=== PATIENT | female | born 1950 | race Caucasian/White ===

== ENCOUNTER 2019-05-11 00:23 | Emergency (ER) | payer MEDICARE, SELFPAY ==
--- NOTE | 2019-05-11 00:29 | XR_ITS ---
WS: [id number] XR chest 1V portable [id number] REASON FOR EXAM: cough FINDINGS: The heart and mediastinal interfaces were normal. Arteriosclerotic changes in the arch of t he aorta. The lung bowles are well aerated. No pneumonia, pleural effusion, pulmonary edema, or mass effect. The hilum and apices are normal. No osseous abnormalities. XR/XR chest 1V portable [id number] IMPRESSION: Arteriosclerotic changes.
[2019-05-11 00:37] VITALS: BP 152/77; PULSE 71; RESP 24; TEMP 37.1; O2SAT 93; BMI 34.3
--- NOTE | 2019-05-11 01:05 | ED_ITS ---
HPI - URI/Sore Throat General: Chief Complaint: Upper Respiratory Infection Stated Complaint: cough Time Seen by Provider: 05/11/19 00:52 Source: patient Mode of arrival: ambulatory Limitations: no limitations History of Present Illness: HPI Narrative: Patient is a 69-year-old female who presents to ED today with complaints of a cough x2 days. Patient states she is not having any chest pain, shortness of breath, difficulty breathing. She is not running fevers or chills. No hemoptysis. Patient states she does have a history of bronchitis. She has no history of asthma, COPD, emphysema. She does states she has a rescue albuterol inhaler at home she has been using as needed. MD elicited complaint: cough Able to tolerate fluids by mouth: Yes Exacerbating factors: nothing Relieving factors: nothing Associated symptoms: Reports no associated symptoms; Deny abdominal pain, chills, chest pain, ear or mastoid pain, fever(s), headache(s), nasal congestion, nausea, sinus pain or vomiting Review of Systems Const: Denies: fever, chills, body aches or fatigue Eyes: Denies: change in vision, blurry vision, photophobia, eye discomfort or eye discharge ENMT: Denies: throat pain, enlarged tonsils, painful swallowing, swelling of lips/tongue, oral sores/lesions, ear pain, ear discharge, nasal discharge, nasal congestion, post nasal drip or facial/sinus pain Card: Denies: chest pain, palpitations, irregular heart rhythm, edema, lightheadedness, syncope or pre-syncope Resp: Reports: productive cough and chest congestion; Denies: shortness of breath, non-productive cough, wheezing or coughing up blood GI: Denies: abdominal pain, nausea or vomiting Musc: Denies: neck pain or back pain Skin/Breast: Denies: rash Neuro: Denies: headache All/Imm: Denies: facial swelling or seasonal allergies PFSH ED PFSH: Social History Smoking and tobacco status: current every day smoker Physical Exam Const: COMMON NORMALS: no apparent distress, average body habitus, oriented x3, no limitations, healthy appearing, alert and well nourished HENMT: COMMON NORMALS: normocephalic, head/scalp atraumatic, hearing grossly normal bilaterally, external ears normal, EAC's normal, TM's normal bilaterally, external nose normal, nasal mucous membranes and turbinates normal, moist oral mucous membranes and oropharynx normal HEAD & SCALP: normocephalic and atraumatic FACE & SINUS: normal facial exam and sinuses nontender NOSE: external nose normal and nasal mucous membranes and turbinates normal EXTERNAL EAR: Yes external ears normal EXTERNAL AUDITORY CANAL: EAC's normal TYMPANIC MEMBRANE: TM's normal bilaterally THROAT: posterior oropharynx normal, tonsils normal and uvula midline Eye: COMMON NORMALS: PERRL, EOMs intact bilaterally and conjunctivae normal CONJUNCTIVA: Yes conjunctivae normal PUPIL: Yes PERRL Neck/C-Spine: COMMON NORMALS: no lymphadenopathy Resp: COMMON NORMALS: normal respiratory effort and clear to auscultation bilaterally AUSCULTATION: clear to auscultation bilaterally Cardio: COMMON NORMALS: regular rate and regular rhythm RATE: regular rate RHYTHM: regular rhythm Neuro: COMMON NORMALS: oriented x3 SENSORIUM/ORIENTATION: Yes alert Course Vital Signs: Vital signs: Vital Signs Temperature 98.7 F 05/11/19 00:37 Pulse Rate 71 05/11/19 00:37 Respiratory Rate 24 H 05/11/19 00:37 Blood Pressure 152/77 05/11/19 00:37 Pulse Oximetry 93 05/11/19 00:37 MDM - URI/Sore Throat MDM Narrative: Medical decision making narrative: Patient clinically appears well. Vitals are stable. CXR with no acute changes. Influenza is negative. I do not feel lab work is going to change overall my management. Patient clinically has bronchitis. Spoke to her about how the vast majority of these infections are viral and antibiotics are not indicated. She may continue the albuterol inhaler as needed and I will add steroids and a cough medication that she may use. Recommend follow-up with her primary care in 3 to 5 days if symptoms persist. Lab Data: Labs: Lab Results 05/11/19 Range/Units 01:18 Influenza Type A A g Negative (Negative) POC Influenza B Ag Negative (Negative) Imaging Data^: CXR: My impression: NAD Discharge Plan Discharge Patient Disposition: Home, Self-Care Clinical Impression: Bronchitis Condition: Stable Prescriptions: New promethazine-codeine 6.25-10 mg/5 mL syrup 5 ml PO Q6H PRN (Reason: cough) Qty: 473 RF: 0 Medrol (Denilson) 4 mg tablets,dose pack See Rx Instructions .ROUTE .COMPLEX Qty: 21 RF: 0 Discharge Orders: Discharge Order (Routine); Ordered 05/11/19 Ordered By: Radha Polo Referrals: Russell Elizabeth MD [Primary Care Provider] - Coding Level of Care Code ED Environmental Attorney for [facility] Bob
[2019-05-11 01:49] LABS: Influenza A by IFA Negative (Negative); Influenza B by IFA Negative (Negative)
[2019-05-11] MEDS: promethazine-cod syrup 6.25-10mg/5 mL UDC PO (02:02)
[2019-05-11 02:21] VITALS: BP 131/73; PULSE 57; RESP 20; O2SAT 96
== END 2019-05-11 02:23 | disposition home or self-care (01) ==
PROVIDERS: Emergency Medicine; Emergency Provider Physician Assistant; Family Provider Family Medicine; PCP Family Medicine
DX: J40 Bronchitis, not specified as acute or chronic (principal); F17.200 Nicotine dependence, unspecified, uncomplicated
CPT/HCPCS: 71045; 87804; 99282; 99283

== ENCOUNTER 2019-10-31 10:00 | Outpatient (CLI) | payer MEDICARE, SELFPAY ==
--- NOTE | 2019-10-31 | MM_ITS ---
NOTE: Report was unsigned for reason: Order was edited. Original Signature date and time was: 10/31/191704 ADDENDUM WS: [id number] LEFT DIGITAL DIAGNOSTIC MAMMOGRAM MAMMOGRAPHY WITH CAD CLINICAL INFORMATION: HX OF BREAST CA (RT MAST) COMPARISON: TECHNIQUE: Left CC, MLO, and ML views. FINDINGS: History of right mastectomy. Scattered fibroglandular densities. Lucent centered and clustered calcifications are stable. No suspicious focal mass, asymmetry, calcifications, or architectural distortion. No evidence of malignancy. Addendum Dictated By: Ajay Walker MD Addendum Signed By: Ajay Walker MD Signed Date/Time: 11/01/191712 Addendum Cosigned By: ADDENDUM MM/[id number] IMPRESSION: BI-RADS: 2-Benign FOLLOW UP: 1 Year Follow-up Recommend return to annual diagnostic mammography. Addendum Dictated By: Ajay Walker MD Addendum Signed By: Ajay Walker MD Signed Date/Time: 11/01/191715 Addendum Cosigned By: WS: [id number] BILATERAL DIGITAL DIAGNOSTIC MAMMOGRAM MAMMOGRAPHY WITH CAD CLINICAL INFORMATION: HX OF BREAST CA (RT MAST) COMPARISON: TECHNIQUE: Bilateral CC, MLO, and ML views. FINDINGS: History of right mastectomy. Scattered fibroglandular densities bilaterally. Lucent centered and clustered calcifications are stable. No suspicious focal mass, asymmetry, calcifications, or architectural distortion. No evidence of malignancy. MM/[place] [id number] IMPRESSION: BI-RADS: 2-Benign FOLLOW UP: 1 Year Follow-up Recommend return to annual diagnostic mammography. Dictated By: Ajay Walker MD Signed By: Ajay Walker MD Signed Date/Time: 10/31/191704 DD/ 01 MTDD MM/[place] [id number] IMPRESSION: BI-RADS: 2-Benign FOLLOW UP: 1 Year Follow-up Recommend return to annual diagnostic mammography. ADDENDUM: 11/01/19 [id number]
--- NOTE | 2019-10-31 11:03 | MM_ITS ---
WS: [id number] BILATERAL DIGITAL DIAGNOSTIC MAMMOGRAM MAMMOGRAPHY WITH CAD CLINICAL INFORMATION: HX OF BREAST CA (RT MAST) COMPARISON: 2 TECHNIQUE: Bilateral CC, MLO, and ML views. FINDINGS: History of right mastectomy. Scattered fibroglandular densities bilaterally. Lucent centered and clustered calcifications are stab le. No suspicious focal mass, asymmetry, calcifications, or architectural distortion. No evidence of linda gnancy.
== END 2019-10-31 10:01 | disposition home or self-care (01) ==
PROVIDERS: PCP Family Medicine; Visit Provider Family Medicine
DX: Z85.3 Personal history of malignant neoplasm of breast (principal)
CPT/HCPCS: 77065

== ENCOUNTER 2019-11-21 07:15 | Day surgery (SDC) | payer MEDICARE, SELFPAY ==
[2019-11-17 13:45] VITALS: BMI 35.5
[2019-11-21 08:16] VITALS: BP 158/70; PULSE 73; RESP 18; TEMP 36.3; O2SAT 96
[2019-11-21 08:34] LABS: Glucose Point of Care 156 mg/dL (70-110)
--- NOTE | 2019-11-21 08:42 | ANES.PREANE2 ---
Pre-Anesthetic Assessment Pre-Anesthetic Assessment: Height/Weight: Height 1.63 m Weight 93.894 kg Temp Pulse Resp BP Pulse Ox 97.3 F L 73 18 158/70 96 11/21/19 08:16 11/21/19 08:16 11/21/19 08:16 11/21/19 08:16 11/21/19 08:16 Preop Diagnosis: d Proposed Procedure: Operation Date: 11/21/19 09:00 Proposed Procedures p EGD/colon 88379 42860 13.10(Not Applicable) - Khadar Bean MD s Colonoscopy(Not Applicable) - Khadar Bean MD Familial anesthetic complications: says she just had too much last time and took a while to wake up Was Beta Nidia taken within 24 hours: N/A Last intake: Intake Last Liquid Date 11/20/19 Last Liquid Time 23:30 Last Solid Date 11/19/19 Last Solid Time 19:00 Last Intake: 00:00 Social: Social History: Tobacco and No alcohol Packs per day: 1 ppd Pack years: 40 Comment: hasn't smoked this morning Exam: Pre-Anes Outpt Exam: alert, oriented x 3 and clear to auscultation bilaterally Airway: Submandibular: WNL Cervical ROM: WNL MP: 2 Dentition: Partials (upper out ) Pulmonary: Pulmonary: COPD and Cough (pt states has had drainage with allergies ) CV/HEM: CV/HEM: HTN and Murmur : : None reported (cyst in bilateral kidneys ) Hepatic: Hepatic: None reported GI: GI: GERD (controlled with meds ) and Hiatus hernia Metabolic: Metabolic: DM (NIDDM) and Morbid obesity Musc/skel: Musc/skel: OA/DJD Neuropsych: Neuropsych: None reported Anesthetic Plan: ASA status: 3 Anesthesia: Anesthesia Evaluation and MAC PFSH Anesthesia PFSH: Family History Father Diabetes Mother Diabetes CHF (congestive heart failure) Other Cancer Dementia Social History (Updated 11/14/19 @ 15:09 by RAMOS [place]) Smoking and tobacco status: current every day smoker Alcohol intake: never Adopted: No Marital status: / Number of children: 2 service: No History of recent travel: No Current gender identity: Female Data Anesthesia Other Labs: Laboratory Results - last 48 hr 11/21/19 08:29 POC Glucose 156 Cardiac Studies: No Data to Display
[2019-11-21] MEDS: sodium chloride 0.9% 1,000 ML 30 ML IV (08:43)
[2019-11-21 08:45] VITALS: PULSE 70; RESP 18; O2SAT 97
--- NOTE | 2019-11-21 09:11 | W.PM.OPSUD ---
Surgery/Procedure H&P Update DATE OF PROCEDURE: November 21, 2019 DATE H&P PERFORMED: 11/14/19 PREOP DIAGNOSIS: d PLANNED PROCEDURE: Operation Date: 11/21/19 09:00 Proposed Procedures p EGD/colon [id number] 74049 13.10(Not Applicable) - Khadar Bean MD s Colonoscopy(Not Applicable) - Khadar Bean MD
[2019-11-21 09:27] VITALS: BP 197/81; PULSE 71; RESP 16; TEMP 36.2; O2SAT 98
--- NOTE | 2019-11-21 09:51 | ANE.PACU2 ---
Inpatient post-anesthesia follow up: Airway intact: Yes Vital signs: Temperature 97.1 F Pulse Rate 71 Respiratory Rate 16 Blood Pressure 197/81 Pulse Oximetry 98 Oxygen Delivery Me thod Nasal Cannula Oxygen Flow Rate 3 Fraction of Inspir ed Oxygen Hydration adequate: Yes Nausea and vomiting: No Mental status: Baseline
[2019-11-21 09:57] VITALS: BP 157/78; PULSE 58; RESP 16; O2SAT 95
[2019-11-22 05:51] LABS: H. Pylori / CLO Test Negative
== END 2019-11-21 10:03 | disposition home or self-care (01) ==
PROVIDERS: PCP Family Medicine; Visit Provider Internal Medicine
PROC: 0DJ08ZZ Inspection of Upper Intestinal Tract, Via Natural or Artificial Opening Endoscopic (ICD-10-PCS; CPT 43235; principal; 2019-11-21 09:00)
PROC: 0DJD8ZZ Inspection of Lower Intestinal Tract, Via Natural or Artificial Opening Endoscopic (ICD-10-PCS; CPT 45378; 2019-11-21 09:00)
DX: Z12.11 Encounter for screening for malignant neoplasm of colon (principal); R13.10 Dysphagia, unspecified; K29.50 Unspecified chronic gastritis without bleeding; J44.9 Chronic obstructive pulmonary disease, unspecified; I10 Essential (primary) hypertension; R01.1 Cardiac murmur, unspecified; K21.9 Gastro-esophageal reflux disease without esophagitis; E11.9 Type 2 diabetes mellitus without complications; E66.01 Morbid (severe) obesity due to excess calories; M19.90 Unspecified osteoarthritis, unspecified site; F17.210 Nicotine dependence, cigarettes, uncomplicated
CPT/HCPCS: 12345; 36416; 43239; 45378; 82962; 87077; 94640; G0121; J2704

== ENCOUNTER 2019-12-05 09:39 | Outpatient (CLI) | payer MEDICARE, SELFPAY ==
--- NOTE | 2019-12-05 09:52 | US_ITS ---
WS: [id number] EXAM: US renal BI* [id number] DATE OF EXAMINATION: 12/05/2019, 1022 hours COMPARISON: Renal sonogram from 12/27/2018 HISTORY: 69 years old with follow-up complex cyst right kidney. FINDINGS: Right kidney is estimated at 11.8 x 5.0 x 5.0 cm in size. Cortical thickness and echo characteristics are normal . Complex cyst superior right kidney 4.3 x 3.4 x 3.4 cm in size. Considered similar to the prior exam. No obstructive uropathy. Left kidney is estimated at 11.0 x 3.9 x 4.5 cm in size. Cortical thickness and echotexture are normal. Simple cyst left kidney inferiorly 2.2 x 1.6 x 1.9 cm in size. No obstructive uropathy. Bladder is decompressed. The patient just voided. Neither ureteral jet(s) demonstrated. US/US renal BI* [id number] IMPRESSION: Stable appearance to a complex cyst superior right kidney. Follow-up ultrasound in one year recommended. Simple cyst left kidney. No obstructive uropathy.
== END 2019-12-05 09:40 | disposition home or self-care (01) ==
LOC: US 09:40
PROVIDERS: PCP Family Medicine; Visit Provider Nurse Practitioner Family
DX: N28.1 Cyst of kidney, acquired (principal)
CPT/HCPCS: 76770

== ENCOUNTER 2020-10-17 16:09 | Emergency (ER) | payer MEDICARE, SELFPAY ==
[2020-10-17 17:24] VITALS: BP 117/78; PULSE 70; RESP 18; TEMP 36.7; O2SAT 95; BMI 34.3
--- NOTE | 2020-10-17 21:51 | W.ED.GENADLT ---
HPI - General Adult General: Chief complaint: General Medical Stated complaint: LOW BP Time Seen by Provider: 10/17/20 21:50 History of Present Illness: HPI narrative: Patient is a 70-year-old female comes to the ED with low blood pressure. Patient says for the past couple days she has been running some lower blood pressure readings of a systolic number of upper 70s and low 80s and the diastolic number in the 40s. She reports having some generalized fatigue over the past couple days but denies any other symptoms. She has been drinking plenty of fluids and denies any diarrhea or vomiting. Denies any chest pain. She currently takes amlodipine and losartan help with her blood pressure. She has not taken her nightly amlodipine dose today but did take her losartan this morning. She denies any syncopal episodes or lightheaded feeling. She contacted her PCP and they told her to come in here for evaluation. Associated symptoms: Deny chest pain, dyspnea, headache(s), nausea, rash, palpitations or vomiting Review of Systems Const: Reports: fatigue; Denies: fever(s) or chills Eyes: Denies: change in vision or eye discomfort ENMT: Denies: throat pain, odynophagia, nasal discharge or nasal congestion Card: Denies: chest pain, palpitations, edema, swelling of feet/ankles, dyspnea on exertion or orthopnea Resp: Denies: dyspnea, productive cough or non-productive cough GI: Denies: abdominal pain, nausea, vomiting, diarrhea, constipation or hematochezia : Denies: flank pain, dysuria or hematuria Musc: Denies: neck pain, back pain or extremity swelling Skin/Breast: Denies: rash or new lesions Neuro: Denies: headache(s), numbness in extremities or weakness in extremities PFS ED PFSH: Family History Father Diabetes Mother Diabetes CHF (congestive heart failure) Other Cancer Dementia Social History Smoking and tobacco status: current every day smoker Alcohol intake: never Adopted: No Marital status: / Number of children: 2 service: No History of recent travel: No Current gender identity: Female Physical Exam Const: COMMON NORMALS: no acute distress, patient oriented x3, healthy appearing and alert GENERAL APPEARANCE: cooperative and comfortable HENMT: COMMON NORMALS: normocephalic HEAD & SCALP: normocephalic MOUTH: Normal oral and palatal mucosa present THROAT: posterior oropharynx normal and uvula midline Eye: COMMON NORMALS: Equal, round and reactive pupils present PUPIL: Yes Equal, round and reactive pupils present Neck/C-Spine: COMMON NORMALS: supple GENERAL: Yes normal visual inspection Resp: COMMON NORMALS: normal respiratory effort, No retractions, No use of accessory muscles and clear to auscultation bilaterally AUSCULTATION: clear to auscultation bilaterally Cardio: COMMON NORMALS: regular rate, regular rhythm, S1 normal heart sound present, S2 normal heart sound present, No gallops present (Cardio), No clicks present (Cardio), No murmurs present (Cardio) and Peripheral pulses 2+ throughout RATE: regular rate RHYTHM: regular rhythm HEART SOUNDS: S1 normal heart sound present and S2 normal heart sound present PERIPHERAL PULSES: Peripheral pulses 2+ throughout GI: COMMON NORMALS: Normal to inspection, nondistended, normoactive bowel sounds present, Soft to palpation, non-tender and no masses PALPATION: Yes Soft to palpation : COMMON NORMALS: Yes no CVA tenderness BLADDER/KIDNEY EXAM: Yes no CVA tenderness Back/Pelvis: COMMON NORMALS: no CVA tenderness Extremity: COMMON NORMALS: normal to inspection Neuro: COMMON NORMALS: patient oriented x3 and moves all extremities SENSORIUM/ORIENTATION: Yes alert Skin: GENERAL SKIN EXAM: dry skin Course Vital Signs: Vital signs: Vital Signs Temperature 98.1 F 10/17/20 17:24 Pulse Rate 68 10/17/20 22:40 Respiratory Rate 18 10/17/20 22:40 Blood Pressure 95/58 10/17/20 22:40 Pulse Oximetry 92 10/17/20 22:40 MDM - General Adult MDM Narrative: Medical decision making narrative: Patient is a 70-year-old female comes to the ED with low blood pressure readings at home. Patient takes losartan in the morning and amlodipine at night. She has skipped taking her amlodipine dose tonight came to the ED to be evaluated. Her blood pressures have been normal here in the ED and she is asymptomatic. She denies any dehydration nausea/vomiting or diarrhea. Patient says she feels normal here in the ED. Patient's vitals were stable and she was discharged home. She was told to continue checking her blood pressure throughout the day and to contact her PCP tomorrow to discuss blood pressure medication management. Return to ED precautions given. Patient understood and agreed with plan. Discharge Plan Discharge Patient Disposition: Home Clinical Impression: Blood pressure check Condition: Stable Prescriptions: No Action metformin 1,000 mg tablet 1,000 mg PO BID RF: 0 amlodipine 2.5 mg tablet 2.5 mg PO DAILY RF: 0 atorvastatin 40 mg tablet 40 mg PO DAILY RF: 0 glipizide 2.5 mg tablet extended release 24hr 5 mg PO DAILY RF: 0 indapamide 1.25 mg tablet 1.25 mg PO QAM RF: 0 losartan 50 mg tablet 50 mg PO DAILY RF: 0 aspirin 81 mg tablet,delayed release (DR/EC) 81 mg PO DAILY RF: 0 albuterol sulfate [ProAir HFA] 90 mcg/actuation HFA aerosol inhaler 2 puff INHALATION Q6H PRN (Reason: Shortness Of Breath Or Wheezing) RF: 0 pantoprazole 40 mg tablet,delayed release (DR/EC) 40 mg PO DAILY Qty: 30 RF: 8 Discharge Orders: Discharge ED (Routine); Ordered 10/17/20 Ordered By: Eduar Lee Referrals: Russell Elizabeth MD [Primary Care Provider] - Discharge Diet: Regular Discharge Activity: Resume usual activity Patient Instructions: Hypotension (ED) Activity Restrictions/Additional Instructions: Contact your PCP tomorrow morning to get an appointment set up with them to be seen in the next couple days to reevaluate blood pressure and your current medications. Continue checking your blood pressure throughout the day and I would hold off on taking any of your blood pressure medications if BP is running low. Continue taking your other home medications as prescribed. Return to the ER or your medical provider if condition worsens. Please read and understand discharge instructions. Thank you for choosing [facility] for your healthcare needs today. Please realize this is an emergency room and that we are providing you with a medical screening exam and this may not be complete and all inclusive of all the testing and or work up that you may need to determine your ailment or severity of your illness. It is very important that you follow up as instructed or that you return to the Emergency Department should you have concerns or if your condition changes or worsens in any way. 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
[2020-10-17 22:40] VITALS: BP 95/58; PULSE 68; RESP 18; O2SAT 92
== END 2020-10-17 22:15 | disposition home or self-care (01) ==
PROVIDERS: Emergency Provider Physician Assistant; PCP Family Medicine
DX: Z01.30 Encounter for examination of blood pressure without abnormal findings (principal); F17.200 Nicotine dependence, unspecified, uncomplicated
CPT/HCPCS: 99281

== ENCOUNTER 2020-12-14 07:44 | Outpatient (CLI) | payer MEDICARE, SELFPAY ==
--- NOTE | 2020-12-14 07:55 | US_ITS ---
WS: [id number] INDICATION: Mass left axilla TECHNIQUE: Ultrasound left axilla FINDINGS: Ultrasound left axilla. Several normal-appearing lymph nodes are seen in the left axilla wi th preserved fatty hilum. No significant cortical thickening. These are likely incidental. Largest ly mph node measures 1.7 x 0.8 x 0.6 cm. US/US soft tissue/extremity [id number] IMPRESSION: Several normal-appearing lymph nodes are seen in the left axilla wi th preserved fatty hilum. These are likely benign. No other suspicious findings .
--- NOTE | 2020-12-14 07:55 | US_ITS ---
WS: [id number] ULTRASOUND ABDOMEN LIMITED CLINICAL INFORMATION: FATTY LIVER COMPARISON: December 05, 2019 FINDINGS: Liver Size: Enlarged Craniocaudal length: 19.5 cm. Echogenicity: Coarse Surface nodularity: None. Mass (size and location): None. Bile ducts Intrahepatic ducts: Normal. Common bile duct diameter: 0.7 cm. Gallbladder Removed Pancreas Normal as visualized. Right kidney: Right kidney cyst with septation measuring 3.5 x 4.1 x 3.7 cm Hydronephrosis: None. Size: 11.2 cm x 5.5 cm x 5.1 cm. Abdominal aorta and IVC Visualized portions are normal. Ascites: None. US/US abdomen limited [id number] IMPRESSION: 1. Hepatomegaly with diffuse fatty infiltration. 2. Prior cholecystectomy. 3. Right upper pole renal cyst with septation measuring 3.5 x 4.1 x 3.7 cm. Th is is unchanged since December 05, 2019 4. No hydronephrosis in right kidney.
== END 2020-12-14 07:45 | disposition home or self-care (01) ==
LOC: US 07:46
PROVIDERS: PCP Family Medicine; Visit Provider Nurse Practitioner Family
DX: K76.0 Fatty (change of) liver, not elsewhere classified (principal); R22.32 Localized swelling, mass and lump, left upper limb; R16.0 Hepatomegaly, not elsewhere classified; Z90.49 Acquired absence of other specified parts of digestive tract; N28.1 Cyst of kidney, acquired
CPT/HCPCS: 76705; 76882

== ENCOUNTER 2021-04-01 12:41 | Outpatient (CLI) | payer MEDICARE, SELFPAY ==
--- NOTE | 2021-04-01 12:46 | US_ITS ---
WS: [id number] ULTRASOUND RENAL TECHNIQUE: Ultrasound examination of both kidneys. CLINICAL INFORMATION: RENAL CYST COMPARISON: Ultrasound renal 12/05 2019 FINDINGS: RIGHT: Complex cyst with a few septations upper pole right kidney measuring 3.5 x 3.1 x 3.9 cm unchan ged compared to 2020. Right kidney is normal in size and appearance. Echogenicity: Normal. Cortical thickness: 1.6 cm; Normal. Hydronephrosis: None. Perinephric fluid: None. Right kidney measures: 10.9 cm x 6.0 cm x 5.4 cm. LEFT: Simple cyst left mid kidney measuring 1.8 x 2.0 x 1.9 CM stable compared to previous.. Left kidney is normal in size and appearance. Echogenicity: Normal. Cortical thickness: 1.6 cm; Normal. Hydronephrosis: None. Perinephric fluid: None. Left kidney measures: 10.8 cm x 5.7 cm x 5.4 cm. Normal visualized aorta. Normal bladder. US/US renal BI* [id number] IMPRESSION: 1. Complex cyst with a few septations upper pole right kidney measuring 3.5 x 3.1 x 3.9 cm unchanged compared to 2020. 2. Simple cyst left mid kidney measuring 1.8 x 2.0 x 1.9 CM stable compared to previous.. 3. No hydronephrosis in either kidney.
== END 2021-04-01 12:42 | disposition home or self-care (01) ==
LOC: RAD 12:44
PROVIDERS: PCP Family Medicine; Visit Provider Nurse Practitioner Family
DX: N28.1 Cyst of kidney, acquired (principal)
CPT/HCPCS: 76770

== ENCOUNTER 2021-06-10 08:41 | Outpatient (CLI) | payer MEDICARE, SELFPAY ==
--- NOTE | 2021-06-10 08:58 | CT_ITS ---
WS: [id number] LDCT LUNG CANCER SCREENING TECHNIQUE: Noncontrast CT of the chest with coronal and sagittal reformatted images. CLINICAL INFORMATION: HX OF TOBACCO USE COMPARISON: CT chest August 23, 2018 DLP: 80.70 mGy.cm DIvol: Mean CTDIvol: 1.60 (mGy) All CT scans at [facility] use at least one of these dose optimization techniques: automat ed exposure control; mA and/or kV adjustment per patient size (includes targeted exams where dose is matched to clinical indication); or iterative reconstruction. FINDINGS: Both lungs are well aerated. A few tiny 2 to 3 mm noncalcified pulmonary nodules. Prior RIGHT mastect marline. Subsegmental atelectasis in the lingula and RIGHT middle lobe. Normal caliber thoracic aorta. Mi ld aortic calcification. Coronary calcification. No mediastinal or hilar lymphadenopathy. No axillary lymphadenopathy. Cholecystectomy clips. Partially visualized RIGHT upper pole renal cyst measuring 4.[address]/CT lung screening [id number] IMPRESSION: LUNG-RADS: 2-Benign Appearance or Behavior FOLLOW UP: 12 Month: Continue annual screening with LDCT
== END 2021-06-10 08:42 | disposition home or self-care (01) ==
PROVIDERS: PCP Family Medicine; Visit Provider Nurse Practitioner Family
DX: Z12.2 Encounter for screening for malignant neoplasm of respiratory organs (principal); Z87.891 Personal history of nicotine dependence
CPT/HCPCS: 71271

== ENCOUNTER 2021-06-24 09:45 | Outpatient (CLI) | payer MEDICARE, SELFPAY ==
--- NOTE | 2021-06-24 09:52 | XR_ITS ---
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 FINDINGS: The L1-L4 bone mineral density measures 1.264 g/cm2. This corresponds to a T score score of 0.7 and Z score of 1.4. Left femoral neck bone mineral density measures 0.921 g/cm2. This corresponds to a T score of -0.7 an d Z score of 0.1. Right femoral neck bone mineral density measures 0.865 g/cm2. This corresponds to a T score -1.1of an d Z score of -0.3. Mean femoral neck bone mineral density measures 0.893 g/cm2. This corresponds to a T score of -0.9 an d Z score of -0.1. XR/XR DEXA axial skeleton* [id number] IMPRESSION: Normal bone mineralization the lumbar spine. Osteopenia of the femoral necks at the lower end of the range. Patient's FRAX calculated 10 year probability for major osteoporotic fracture i s 9.4 % and osteoporotic hip fracture is 2.1%.
== END 2021-06-24 09:46 | disposition home or self-care (01) ==
LOC: RAD 09:46
PROVIDERS: PCP Family Medicine; Visit Provider Nurse Practitioner Family
DX: M81.0 Age-related osteoporosis without current pathological fracture (principal)
CPT/HCPCS: 77080

== ENCOUNTER 2021-08-02 08:33 | Outpatient (CLI) | payer MEDICARE, SELFPAY ==
--- NOTE | 2021-08-02 08:43 | MM_ITS ---
WS: [id number] DIAGNOSTIC LEFT DIGITAL BREAST TOMOSYNTHESIS MAMMOGRAPHY WITH CAD. HISTORY: HX OF BREAST Ca; rt MASTECTOMY COMPARISON: 10/31/2019, 05/10/2018 Technique: CC, MLO and ML views. Breast composition: There are scattered areas of fibroglandular density. Scattered calcifications th roughout the LEFT breast are stable. No distortion. No mass. MM/[place] [id number] IMPRESSION: BI-RADS: 2-Benign FOLLOW UP: 1 Year Follow-up
== END 2021-08-02 08:34 | disposition home or self-care (01) ==
PROVIDERS: PCP Family Medicine; Visit Provider Nurse Practitioner Family
DX: Z12.31 Encounter for screening mammogram for malignant neoplasm of breast (principal); Z90.11 Acquired absence of right breast and nipple
CPT/HCPCS: 77061

== ENCOUNTER → 2022-01-21 16:39 | Outpatient (BNVA) | payer MEDICARE, SELFPAY | PROVIDERS: PCP Family Medicine; Visit Provider Registered Nurse Neonatal Intensive Care | DX: R52 Pain, unspecified (principal); J40 Bronchitis, not specified as acute or chronic | CPT/HCPCS: 87400 ==

== ENCOUNTER → 2022-07-16 11:05 | Outpatient (BNVA) | payer MEDICARE, SELFPAY | PROVIDERS: PCP Family Medicine; Visit Provider Nurse Practitioner Family | DX: R06.00 Dyspnea, unspecified (principal) | CPT/HCPCS: 71046 ==

== ENCOUNTER → 2022-09-16 15:21 | Outpatient (BNVA) | payer MEDICARE, SELFPAY | PROVIDERS: PCP Family Medicine; Visit Provider Family Medicine | DX: E13.9 Other specified diabetes mellitus without complications (principal); E78.2 Mixed hyperlipidemia; R13.10 Dysphagia, unspecified; L21.9 Seborrheic dermatitis, unspecified; J44.9 Chronic obstructive pulmonary disease, unspecified | CPT/HCPCS: 80053; 80061; 83036; 85025 ==

== ENCOUNTER → 2022-10-20 08:29 | Outpatient (BNVA) | payer MEDICARE, SELFPAY | PROVIDERS: PCP Family Medicine; Visit Provider Surgery | DX: R13.10 Dysphagia, unspecified (principal) | CPT/HCPCS: 99203 ==

== ENCOUNTER 2022-10-29 08:55 | Outpatient (CLI) | payer MEDICARE, SELFPAY ==
--- NOTE | 2022-10-29 09:30 | FL_ITS ---
WS: [id number] FL barium swallow modifd [id number] REASON FOR EXAM: Other dysphagia FLUOROSCOPY TIME: 1min [id number] # OF SPOT FILMS: None FINDINGS: Examination is supervised by the speech therapy department. The patient was examined in the sitting upright position. Lateral projection. The swallowing of varying consistencies of barium was monitored fluoroscopically and video recorded. Detailed analysis and report of the swallowing will be rendered by the speech therapy department. IMPRESSION: Modified barium swallow as above.
== END 2022-10-29 08:56 | disposition home or self-care (01) ==
PROVIDERS: PCP Family Medicine; Visit Provider Surgery
DX: R13.10 Dysphagia, unspecified (principal)
CPT/HCPCS: 74230; 92611

== ENCOUNTER → 2023-12-22 13:13 | Outpatient (BNVA) | payer MEDICARE, SELFPAY | PROVIDERS: PCP Family Medicine | DX: R06.2 Wheezing (principal); M47.894 Other spondylosis, thoracic region | CPT/HCPCS: 71046 ==

== ENCOUNTER → 2023-12-28 12:29 | Outpatient (BNVA) | payer MEDICARE, SELFPAY | PROVIDERS: PCP Family Medicine | DX: J43.9 Emphysema, unspecified (principal); I70.90 Unspecified atherosclerosis | CPT/HCPCS: 71046 ==

== ENCOUNTER 2024-01-07 08:10 | Observation (INO) | payer MEDICARE, SELFPAY ==
[2024-01-07] VITALS (16 sets, daily range): BP systolic 105–204; BP diastolic 64–92; PULSE 66–109; RESP 16–22; TEMP 36.5–36.8; O2SAT 87–96; BMI 35.2
--- NOTE | 2024-01-07 08:40 | ED_ITS ---
HPI - SOB/Dyspnea 2 General: Chief Complaint: Shortness of Breath/Dyspnea Stated Complaint: SOB Time Seen by Provider: 01/07/24 08:12 Source: patient Mode of arrival: ambulatory Limitations: no limitations History of Present Illness: HPI Narrative: 73-year-old female who has a history of COPD states she been having increasing cough shortness of breath for the last 2 weeks. States it got much worse since last night states her cough been productive she is seeing her PCP states last week she was on steroids on antibiotics but had no improvement denies any fever denies any pain Associated symptoms: Deny abdominal pain, chest pain, fever(s), nausea or vomiting Related Data Home Medications Medication Instructions Recorded Confirmed aspirin 81 mg tablet,delayed 81 mg PO DAILY 10/10/19 01/07/24 release cholecalciferol (vitamin D3) 125 125 mcg PO DAILY 10/20/22 01/07/24 mcg (5,000 unit) capsule atorvastatin 40 mg tablet 40 mg PO DAILY 01/07/24 01/07/24 glipizide 10 mg tablet 10 mg PO BID 01/07/24 01/07/24 metformin 1,000 mg tablet 1,000 mg PO BID 01/07/24 01/07/24 montelukast 10 mg tablet 10 mg PO DAILY 01/07/24 01/07/24 pantoprazole 40 mg tablet,delayed 40 mg PO DAILY 01/07/24 01/07/24 release Previous Rx's Medication Instructions Recorded tiotropium bromide 18 mcg capsule 1 cap inhalation DAILY #60 09/16/22 with inhalation device (Spiriva inhalations with HandiHaler) triamcinolone acetonide 0.1 % 1 applic topical DAILY #30 grams 09/16/22 topical cream ipratropium 0.5 mg-albuterol 3 mg See Rx Instructions .Route 03/02/23 (2.5 mg base)/3 mL nebulization .COMPLEX #180 mL soln methocarbamol 750 mg tablet 750 mg PO Q8H #30 tabs 03/08/23 albuterol sulfate 90 mcg/actuation See Rx Instructions .Route 11/16/23 aerosol inhaler .COMPLEX #9 grams benzonatate 100 mg capsule 100 mg PO TID #30 caps 12/22/23 levofloxacin 750 mg tablet 750 mg PO DAILY #5 tabs 12/28/23 Allergies Allergy/AdvReac Type Severity Reaction Status Date / Time amoxicillin Allergy Mild ALGY-Rash Verified 12/28/23 12:01 erythromycin base Allergy Mild ALGY-Rash Verified 12/28/23 12:01 cephalexin [From Keflex] Allergy ALGY-Rash Verified 12/28/23 12:01 guaifenesin [From Mucinex] Allergy unknown Verified 12/28/23 12:01 lisinopril Allergy Unknown Verified 12/28/23 12:01 naproxen Allergy unknown Verified 12/28/23 12:01 propoxyphene [From Darvon] Allergy Unknown Verified 12/28/23 12:01 rosuvastatin [From Crestor] Allergy unknown Verified 12/28/23 12:01 Review of Systems 2 Const: Denies: fever(s), chills, body aches or change in appetite ENMT: Denies: throat pain or dental pain Card: Denies: chest pain Resp: Reports: dyspnea, productive cough and wheezing GI: Denies: abdominal pain, nausea, vomiting or diarrhea Musc: Denies: neck pain or back pain Skin/Breast: Denies: rash Neuro: Denies: headache(s) PFSH ED 2 PFSH: Medical History Diabetes 1.5, managed as type 2 Family History Father Diabetes Mother Diabetes Congestive heart failure (CHF) Other Cancer Dementia Social History Smoking and tobacco/nicotine status: current every day tobacco/nicotine user Alcohol intake: never Substance/Drug Use: never Adopted: No Marital status: / Number of children: 2 service: No Current gender identity: Female Physical Exam 2 Const: COMMON NORMALS: no acute distress, patient oriented x3 and healthy appearing HENMT: COMMON NORMALS: normocephalic and atraumatic HEAD & SCALP: n ormocephalic and atraumatic Neck/C-Spine: COMMON NORMALS: full ROM and supple Chest: COMMONS NORMALS: normal inspection of the chest Resp: COMMON NORMALS: No retractions EFFORT & INSPECTION: Yes audible wheezes Cardio: COMMON NORMALS: regular rate, regular rhythm and No murmurs present (Cardio) RATE: regular rate RHYTHM: regular rhythm Extremity: COMMON NORMALS: normal to inspection and full ROM Neuro: COMMON NORMALS: patient oriented x3, moves all extremities and no focal motor deficits Psych: COMMON NORMALS: mental status grossly normal, Normal thought process present and cooperative THOUGHT PROCESS: Normal thought process present Skin: COMMON NORMALS: no rashes or lesions noted and no wounds GENERAL SKIN EXAM: no rashes or lesions noted Course 2 Vital Signs: Vital signs: Vital Signs Temperature 98.1 F 01/07/24 08:25 Pulse Rate 77 01/07/24 10:00 Respiratory Rate 20 H 01/07/24 10:00 Blood Pressure 106/92 01/07/24 10:00 Pulse Oximetry 89 L 01/07/24 10:00 Oxygen Delivery Me thod Room Air 01/07/24 10:00 MDM - SOB/Dyspnea Medical Decision Making Patient presents here with COPD exacerbation she is requiring 2 L oxygen she is also failed outpatient treatment of steroids x-ray shows no pneumonia spoke to the hospitalist will admit for observation Medical Records I reviewed the patient's medical records. Lab Data I reviewed the patient's lab results. 01/07/24 09:01 01/07/24 09:01 Labs/Radiology: Radiology Impressions Chest X-Ray 01/07/24 08:40 Impression: Atherosclerosis. Laboratory Results WBC 15.10 10^3/uL (3.29-11.43) H 01/07/24 09:01 RBC 5.51 10^6/uL (3.85-5.65) 01/07/24 09:01 Hgb 12.00 g/dL (11.27-16.99) 01/07/24 09:01 Hct 46.0 % (36-47) 01/07/24 09:01 MCV 83.5 fl (85-98) L 01/07/24 09:01 MCH 21.8 pg (27-33) L 01/07/24 09:01 MCHC 26.1 g/dL (30-55) L 01/07/24 09:01 RDW 16.8 % (12.1-15.1) H 01/07/24 09:01 Plt Count 236 10^3/cmm (157-399) 01/07/24 09:01 MPV 10.8 fL (7.4-10.4) H 01/07/24 09:01 Neut % (Auto) 85.5 % 01/07/24 09:01 Lymph % (Auto) 8.9 % 01/07/24 09:01 Cavalier % (Auto) 3.7 % 01/07/24 09:01 Eos % (Auto) 0.5 % 01/07/24 09:01 Baso % (Auto) 0.5 % 01/07/24 09:01 Neut # (Auto) 12.91 10^3/uL (1.8-7.7) H 01/07/24 09:01 Lymph # (Auto) 1.3 10^3/uL (0.8-4.8) 01/07/24 09:01 Cavalier # (Auto) 0.6 10^3/uL (0.2-0.9) 01/07/24 09:01 Eos # (Auto) 0.1 10^3/uL (0.0-0.8) 01/07/24 09:01 Baso # (Auto) 0.1 10^3/uL (0.0-0.1) 01/07/24 09:01 Nucleated RBC % (auto) 0 % 01/07/24 09:01 Nucleated RBCs # 0.0 /100WBC 01/07/24 09:01 Sodium 138 mmol/L (136-145) 01/07/24 09:01 Potassium 4.2 mmol/L (3.5-5.1) 01/07/24 09:01 Chloride 100 mmol/L (98-107) 01/07/24 09:01 Carbon Dioxide 26 mmol/L (22-29) 01/07/24 09:01 Anion Gap 16.2 (5-19) 01/07/24 09:01 BUN 10 mg/dL (8-23) 01/07/24 09:01 Creatinine 0.7 mg/dL (0.5-0.9) 01/07/24 09:01 GFR Calculation Not Reportable 01/07/24 09:01 Glucose 119 mg/dL (65-115) H 01/07/24 09:01 Calculated Osmolality 286 mOsm/kg (285-295) 01/07/24 09:01 Calcium 8.8 mg/dL (8.5-10.5) 01/07/24 09:01 Total Bilirubin 0.4 mg/dL (0.15-1.2) 01/07/24 09:01 AST 12 U/L (0-32) 01/07/24 09:01 ALT 10 U/L (0-33) 01/07/24 09:01 Alkaline Phosphatase 76 U/L (35-105) 01/07/24 09:01 NT-Pro-B Natriuret Pep 945 pg/mL (0-125) H 01/07/24 09:01 Total Protein 6.8 g/dL (6.6-8.7) 01/07/24 09:01 Albumin 3.8 g/dL (3.5-5.2) 01/07/24 09:01 Globulin 3.0 g/dL (1.3-4.6) 01/07/24 09:01 Coronavirus (PCR) Negative (Negative) 01/07/24 09:18 Influenza A (PCR) Negative (Negative) 01/07/24 09:18 Influenza Type B (PCR) Negative (Negative) 01/07/24 09:18 RSV (PCR) Negative (Negative) 01/07/24 09:18 All radiology interpretation(s) finalized by discharge Discharge Plan Discharge Patient Disposition: Placed in Observation Clinical Impression: Acute exacerbation of chronic obstructive airways disease Condition: Stable Prescriptions: No Action aspirin 81 mg tablet,delayed release (DR/EC) 81 mg PO DAILY benzonatate 100 mg capsule 100 mg PO TID Qty: 30 0RF levofloxacin 750 mg tablet 750 mg PO DAILY Qty: 5 0RF triamcinolone acetonide 0.1 % cream 1 applic topical DAILY Qty: 30 0RF Spiriva with HandiHaler 18 mcg capsule, w/inhalation device 1 cap inhalation DAILY Qty: 60 5RF Rx Instructions: puncture 1 cap using device; one dose = 2 inhalations cholecalciferol (vitamin D3) 125 mcg (5,000 unit) capsule 125 mcg PO DAILY methocarbamol 750 mg tablet 750 mg PO Q8H Qty: 30 0RF ipratropium-albuterol 0.5 mg-3 mg(2.5 mg base)/3 mL solution for nebulization See Rx Instructions .ROUTE .COMPLEX Qty: 180 0RF Dose Instruction: USE 3 ML IN NEBULIZER EVERY 6 HOURS NEEDED FOR WHEEZING Rx Instructions: USE 3 ML IN NEBULIZER EVERY 6 HOURS NEEDED FOR WHEEZING albuterol sulfate 90 mcg/actuation HFA aerosol inhaler See Rx Instructions .ROUTE .COMPLEX Qty: 9 0RF Dose Instruction: INHALE 2 PUFFS BY MOUTH EVERY 6 HOURS NEEDED FOR SHORTNESS OF BREATH FOR WHEEZING Rx Instructions: INHALE 2 PUFFS BY MOUTH EVERY 6 HOURS NEEDED FOR SHORTNESS OF BREATH FOR WHEEZING atorvastatin 40 mg tablet 40 mg PO DAILY glipizide 10 mg tablet 10 mg PO BID pantoprazole 40 mg tablet,delayed release (DR/EC) 40 mg PO DAILY metformin 1,000 mg tablet 1,000 mg PO BID Rx Instructions: Take 1 tablet by mouth twice daily montelukast 10 mg tablet 10 mg PO DAILY Referrals: Beau Weeks DO [Primary Care Provider] - Coding Level of Care Code ED Linker Up for Clayton Rojas
--- NOTE | 2024-01-07 08:40 | XR_ITS ---
WS: [id number] Portable AP upright chest, 01/07/2024 Clinical Data: sob Comparison: Two-view chest, 12/28/2023 Findings: No nodules, masses or effusions are seen. The heart is normal. The pulmonary vascularity is not increased. No pneumonia or pneumothorax is seen. The aortic arch and descending thoracic aorta s how minimal calcification and tortuosity. There are monitor leads on the chest wall. XR/XR chest 1V portable [id number] Impression: Atherosclerosis.
[2024-01-07 09:08] LABS: Basophils # 0.1 10^3/uL (0.0-0.1); Basophils % 0.5 %; Eosinophils # 0.1 10^3/uL (0.0-0.8); Eosinophils % 0.5 %; Lymphocytes # 1.3 10^3/uL (0.8-4.8); Lymphocytes % 8.9 %; Mean Corpuscular HGB Conc 26.1 g/dL (30-55); Mean Corpuscular Hemoglobin 21.8 pg (27-33); Mean Corpuscular Volume 83.5 fl (85-98); Mean Platelet Volume 10.8 fL (7.4-10.4); Monocytes # 0.6 10^3/uL (0.2-0.9); Monocytes % 3.7 %; Neutrophils # 12.91 10^3/uL (1.8-7.7); Neutrophils % 85.5 %; Nucleated Red Blood Cells % 0 %; Platelet Count 236 10^3/cmm (157-399); Red Blood Count 5.51 10^6/uL (3.85-5.65); Red Cell Distribution Width 16.8 % (12.1-15.1)
[2024-01-07] MEDS: albuterol 2.5 mg/3 mL Neb INHALATION (09:09)
[2024-01-07] MEDS: ipratropium-albuterol 3 mL Neb INHALATION ×2 (09:09→17:12)
[2024-01-07] MEDS: methylPREDNISolone sod succ 125 mg/2 mL INJ IV (09:16)
[2024-01-07 09:49] LABS: Alanine Aminotransferase 10 U/L (0-33); Albumin Level 3.8 g/dL (3.5-5.2); Alkaline Phosphatase 76 U/L (35-105); Aspartate Amino Transferase 12 U/L (0-32); Blood Urea Nitrogen 10 mg/dL (8-23); Calcium 8.8 mg/dL (8.5-10.5); Carbon Dioxide 26 mmol/L (22-29); Chloride 100 mmol/L (98-107); Creatinine Clr Calc Pharmacy 70.2575; Glucose 119 mg/dL (65-115); NT Pro B Type Natriuretic Pept 945 pg/mL (0-125); Osmolality Calculated 286 mOsm/kg (285-295); Sodium 138 mmol/L (136-145); Total Bilirubin 0.4 mg/dL (0.15-1.2); Total Protein 6.8 g/dL (6.6-8.7)
[2024-01-07 09:50] LABS: Anion Gap 16.2 (5-19); Potassium 4.2 mmol/L (3.5-5.1)
[2024-01-07 10:35] LABS: Covid PCR NEGATIVE (Negative); Influenza A NEGATIVE (Negative); Influenza B NEGATIVE (Negative); Respiratory Syncytial Virus Ce NEGATIVE (Negative)
[2024-01-07] MEDS: methylPREDNISolone sod succ 40 mg/mL INJ IVP (14:30)
[2024-01-07] MEDS: enoxaparin 40 mg/0.4 mL Syringe SUBCUT (14:30)
--- NOTE | 2024-01-07 14:42 | P.HP_ITS ---
Providers/Chief Complaint 2 Admitting Physician: Brittni Vyas MD Primary Care Provider: Beau Weeks DO Chief Complaint: SOB History of Present Illness Maranda Garcia is a 73 year old female who has been getting steroid antibiotic for last 2 weeks failed outpatient therapy, smoked 1 pack/day presented with worsening shortness of breath. She is not endorsing fever nausea vomiting diarrhea or chest pain. She has been diagnosed COPD, only takes nebulizing DuoNeb treatment, does not take long-acting LAMA LABA ICS combination for COPD. Does not use oxygen at baseline. Review of Systems 2 Const: Denies: fever(s) Eyes: Denies: change in vision ENMT: Denies: throat pain Card: Denies: chest pain Resp: Reports: dyspnea and wheezing Medications/Allergies Home Medications Medication Instructions Recorded Confirmed Last Taken Type aspirin 81 mg tablet,delayed 81 mg PO DAILY 10/10/19 01/07/24 01/06/24 History release tiotropium bromide 18 mcg capsule 1 cap inhalation DAILY #60 09/16/22 01/07/24 01/07/24 Rx with inhalation device (Spiriva inhalations with HandiHaler) triamcinolone acetonide 0.1 % 1 applic topical DAILY #30 grams 09/16/22 01/07/24 01/07/24 Rx topical cream cholecalciferol (vitamin D3) 125 125 mcg PO DAILY 10/20/22 01/07/24 01/06/24 History mcg (5,000 unit) capsule ipratropium 0.5 mg-albuterol 3 mg See Rx Instructions .Route 03/02/23 01/07/24 01/06/24 Rx (2.5 mg base)/3 mL nebulization .COMPLEX #180 mL soln methocarbamol 750 mg tablet 750 mg PO Q8H #30 tabs 03/08/23 01/07/24 01/07/24 Rx albuterol sulfate 90 mcg/actuation See Rx Instructions .Route 11/16/23 01/07/24 01/07/24 Rx aerosol inhaler .COMPLEX #9 grams benzonatate 100 mg capsule 100 mg PO TID #30 caps 12/22/23 01/07/24 01/06/24 Rx levofloxacin 750 mg tablet 750 mg PO DAILY #5 tabs 12/28/23 01/07/24 01/07/24 Rx atorvastatin 40 mg tablet 40 mg PO DAILY 01/07/24 01/07/24 01/07/24 History glipizide 10 mg tablet 10 mg PO BID 01/07/24 01/07/24 01/06/24 History metformin 1,000 mg tablet 1,000 mg PO BID 01/07/24 01/07/24 01/07/24 History montelukast 10 mg tablet 10 mg PO DAILY 01/07/24 01/07/24 01/07/24 History pantoprazole 40 mg tablet,delayed 40 mg PO DAILY 01/07/24 01/07/24 01/07/24 History release Allergies Allergy/AdvReac Type Severity Reaction Status Date / Time amoxicillin Allergy Mild ALGY-Rash Verified 12/28/23 12:01 erythromycin base Allergy Mild ALGY-Rash Verified 12/28/23 12:01 cephalexin [From Keflex] Allergy ALGY-Rash Verified 12/28/23 12:01 guaifenesin [From Mucinex] Allergy unknown Verified 12/28/23 12:01 lisinopril Allergy Unknown Verified 12/28/23 12:01 naproxen Allergy unknown Verified 12/28/23 12:01 propoxyphene [From Darvon] Allergy Unknown Verified 12/28/23 12:01 rosuvastatin [From Crestor] Allergy unknown Verified 12/28/23 12:01 PFSH Acute 2 PFSH: Medical History (Updated 01/07/24 @ 14:44 by Dani Orellana MD) Diabetes 1.5, managed as type 2 Surgical History (Updated 01/07/24 @ 14:44 by Dani Orellana MD) History of tonsillectomy Hx of colonoscopy Dr. Bean at [facility] History of esophagogastroduodenoscopy (EGD) Dr. Bean at [facility] Family History Father Diabetes Mother Diabetes Congestive heart failure (CHF) Other Cancer Dementia Social History Smoking and tobacco/nicotine status: current every day tobacco/nicotine user Alcohol intake: never Substance/Drug Use: never Adopted: No Marital status: / Number of children: 2 service: No Current gender identity: Female Vitals/I&O/Wt Last Vital Signs Temp 98.1 F 01/07/24 13:22 Pulse 75 01/07/24 13:48 Resp 21 H 01/07/24 13:48 BP 130/85 01/07/24 13:48 Pulse Ox 94 01/07/24 13:48 O2 Del Method Room Air 01/07/24 13:05 O2 Flow Rate 1 01/07/24 12:46 Weight last 48 hrs Weight 91.626 kg Weight 92.986 kg Physical Exam 2 Narrative: Mild wheezing on examination GCS 15 Present covering lower extremity edema S1, S2 Awake and alert Pleasant cooperative No active chest pain Currently on room air saturating 90% Data 01/07/24 09:01 01/07/24 09:01 A&P Assessment and plan (1) COPD (chronic obstructive pulmonary disease): Qualifiers: COPD type: emphysema Emphysema type: unspecified Qualified Code(s): J 43.9 - Emphysema, unspecified (2) Dyspnea: Qualifiers: Dyspnea type: shortness of breath Qualified Code(s): R06.02 - Shortness of breath (3) Hypoxia: Plan Acute hypoxia COPD exacerbation Patient saturating 88 to 90% on room air Will need 2 L of oxygen Add steroids, continue ceftriaxone azithromycin Requested sputum culture, Patient will need LAMA LABA ICS combination on discharge Requested D-dimer She also has lower extremity edema which could be related to use of steroids however I will like to get BNP and echo to rule out new onset heart failure Full code Cardiac diet Consistent carb insulin sliding scale DVT prophylaxis added Attestations 2 Medical Necessity Statement*: Anticipating discharge within 48 hours Diagnoses Pulmonary emphysema, unspecified emphysema type J43.9 COPD type: emphysema Emphysema type: unspecified Shortness of breath R06.02 Dyspnea type: shortness of breath Hypoxia R09.02
--- NOTE | 2024-01-07 14:46 | USCV_ITS ---
Maranda Garcia Age: 73 Gender: F : 1950 Exam Date: 01/07/2024 20:41 Ordering Phys: Dani Orellana MD Technologist: GM Exam Location: [facility] [place] Indication: Long-term smoker, continues smoking, History of COPD, c/o SOB. BP: 147 / 85 HR: 63 Rhythm: Sinus Technical Quality: Adequate MEASUREMENTS (Male / Female) Normal Values 2D ECHO LV Diastolic Diameter PLAX 3.4 cm 4.2 - 5.9 / 3.9 - 5.3 cm IVS Diastolic Thickness 1.8 cm 0.6 - 1.0 / 0.6 - 0.9 cm IVS Systolic Thickness 2.1 cm LVPW Diastolic Thickness 1.4 cm 0.6 - 1.0 / 0.6 - 0.9 cm LVPW Systolic Thickness 1.6 cm LVOT Diameter 2.1 cm LV Ejection Fraction 2D Teich 64.2 % LV Ejection Fraction MOD 4C 62.2 % LV Ejection Fraction MOD 2C 56.0 % LV Ejection Fraction 2C AL 56.5 % LA Diameter 3.6 cm Aorta at Sinotubular Diameter 2.7 cm IVC Diameter 2.5 cm M-MODE LA Ao Ratio MM 1.1 AV Cusp Separation MM 0.8 cm DOPPLER AV Peak Velocity 358.0 cm/s LVOT Peak Velocity 99.0 cm/s AV Area Cont Eq vti 1.1 cm squared AV Area Cont Eq pk 0.9 cm squared MV Peak Velocity 162.0 cm/s MV Area PHT 2.8 cm squared Mitral E to A Ratio 0.9 TV Peak Velocity 279.0 cm/s TR Peak Velocity 306.0 cm/s TR Peak Gradient 37.5 mmHg TV Peak E Velocity 56.0 cm/s Right Atrial Pressure 3.0 mmHg Pulmonary Artery Systolic Pressu 40.5 mmHg PV Peak Velocity 136.0 cm/s FINDINGS Left Ventricle Normal left ventricular cavity size. Moderate left ventricular hypertrophy. Normal left ventricular systolic function. Left ventricular ejection fraction is estimated at 60 %. Grade II/IV diastolic dysfunction, moderately elevated filling pressures. Right Ventricle The right ventricle is normal in size and function. Right Atrium The right atrium is normal in size. Left Atrium Moderately increased left atrial size. Mitral Valve Moderately thickened mitral valve. No mitral valve stenosis. Mild mitral annular calcification. Mild-moderate mitral valve regurgitation. Aortic Valve Severe aortic valve calcification. Moderate aortic valve stenosis, mean gradient 24.4 mmHg, JACOB 1.1cm2 trace aortic valve regurgitation.. Tricuspid Valve Mild tricuspid valve regurgitation. Pulmonic Valve Structurally normal pulmonic valve without significant stenosis. There is no pulmonic regurgitation. Pericardium Normal pericardium without effusion. Aorta Normal ascending aorta dimension. IVC The inferior vena cava appears normal. CONCLUSIONS Normal left ventricular cavity size. Moderate left ventricular hypertrophy. Normal left ventricular systolic function. Left ventricular ejection fraction is estimated at 60 %. Grade II/IV diastolic dysfunction, moderately elevated filling pressures. Moderately thickened mitral valve. No mitral valve stenosis. Mild mitral annular calcification. Mild-moderate mitral valve regurgitation. Severe aortic valve calcification. Moderate aortic valve stenosis, mean gradient 24.4 mmHg, JACOB 1.1cm2 trace aortic valve regurgitation.. Mild tricuspid valve regurgitation. There is no pericardial effusion. Right atrial pressure is around 5 mm of mercury. Dani Oconnell MD (Electronically Signed) Final Date: 08 January 2024 15:16 S
[2024-01-07 15:14] LABS: Procalcitonin 0.04 ng/mL (0-0.5); Vitamin B12 199 pg/mL (232-1245)
[2024-01-07] MEDS: FUROsemide 10 mg/mL SDV 2mL 20 MG IVP (15:19)
[2024-01-07] MEDS: cefTRIAXone 1,000 mg SDV 1000 MG IVP (15:19)
[2024-01-07 15:55] LABS: D Dimer 0.63 ug/mLFEU (0-0.59)
[2024-01-07 16:51] LABS: Glucose Point of Care 440 mg/dL (70-110)
[2024-01-07 16:51] LABS: Glucose Point of Care 419 mg/dL (70-110)
[2024-01-07 17:18] LABS: Estmated Average Glucose 186; Hemoglobin A1C 8.1 % (4.0-6.0)
[2024-01-07] MEDS: insulin lispro 100 unit/1 mL SUBCUT (17:19)
[2024-01-07 21:32] LABS: Glucose Point of Care 375 mg/dL (70-110)
[2024-01-07] MEDS: insulin glargine 100 units/1 mL 5 UNIT SUBCUT (22:33)
[2024-01-08] VITALS (8 sets, daily range): BP systolic 101–127; BP diastolic 56–83; PULSE 56–70; RESP 14–20; TEMP 36.6–36.8; O2SAT 92–96
[2024-01-08 01:01] LABS: Glucose Point of Care 275 mg/dL (70-110)
[2024-01-08] MEDS: insulin lispro 100 unit/1 mL SUBCUT ×3 (01:05→11:24)
[2024-01-08] MEDS: benzonatate 100 mg Capsule PO ×2 (02:00→08:13)
[2024-01-08] MEDS: methylPREDNISolone sod succ 40 mg/mL INJ IVP (02:00)
[2024-01-08 05:30] LABS: Basophils % 0.1 %; Hematocrit 37.9 % (36-47); Lymphocytes # 1.2 10^3/uL (0.8-4.8); Mean Corpuscular Hemoglobin 22.1 pg (27-33); Mean Corpuscular Volume 76.3 fl (85-98); Mean Platelet Volume 10.5 fL (7.4-10.4); Monocytes # 0.7 10^3/uL (0.2-0.9); Monocytes % 4.7 %; Neutrophils # 11.76 10^3/uL (1.8-7.7); Neutrophils % 85.1 %; Nucleated Red Blood Cells % 0.1 %; Platelet Count 277 10^3/cmm (157-399); Red Blood Count 4.97 10^6/uL (3.85-5.65); Red Cell Distribution Width 16.4 % (12.1-15.1); White Blood Count 13.82 10^3/uL (3.29-11.43)
[2024-01-08 05:54] LABS: Anion Gap 13.2 (5-19); Blood Urea Nitrogen 18 mg/dL (8-23); C Reactive Protein 4.3 mg/L (0.0-4.9); Calcium 9.2 mg/dL (8.5-10.5); Carbon Dioxide 32 mmol/L (22-29); Chloride 100 mmol/L (98-107); Creatinine Clr Calc Pharmacy 69.2336; Glucose 161 mg/dL (65-115); Magnesium 1.9 mg/dL (1.7-2.3); Osmolality Calculated 297 mOsm/kg (285-295); Potassium 4.2 mmol/L (3.5-5.1); Sodium 141 mmol/L (136-145)
[2024-01-08 06:28] LABS: Glucose Point of Care 163 mg/dL (70-110)
[2024-01-08] MEDS: sennosides-docusate Tablet 1 TAB PO (08:13)
[2024-01-08] MEDS: azithromycin 250 mg Tablet 500 MG PO (08:13)
--- NOTE | 2024-01-08 08:51 | CT_ITS ---
WS: [id number] CT CHEST ANGIOGRAPHY WITH REFORMATS HISTORY: r/o pe TECHNIQUE: Contiguous axial images are obtained through the chest during arterial injection of intrav enous contrast. Images are reconstructed to evaluate the pulmonary arteries. MIP imaging also reviewe d. All CT scans at [facility] use at least one of these dose optimization techniques: automat ed exposure control; mA and/or kV adjustment per patient size (includes targeted exams where dose is matched to clinical indication); or iterative reconstruction. CONTRAST: Omnipaque 350; 100 mL IV. DLP: 421.88 mGy.cm COMPARISON: 06/10/2021 Good opacification of the pulmonary arteries. No filling defects. Main pulmonary artery is very sligh tly dilated to 3.5 cm. Moderate LEFT heart enlargement. No RIGHT heart strain. Scattered atherosclero tic plaque within the thoracic aorta with no aneurysm. Numerous small mediastinal and hilar lymph nodes. These lymph nodes have been present on prior studie s. No new or enlarging lymph nodes or adenopathy. No pulmonary mass, nodule or pneumonia. No pericard ial or pleural effusions. Status post RIGHT mastectomy. Prior cholecystectomy. Very mild hyperplasia LEFT adrenal gland. Mild increase in thoracic kyphosis. CT/CT angio chest PE protcl [id number] IMPRESSION: 1. No pulmonary embolism. 2. Mild pulmonary hypertension. 3. No pneumonia or pulmonary mass. 4. Mild LEFT heart enlargement. 5. Prior RIGHT mastectomy. 6. Prior cholecystectomy.
--- NOTE | 2024-01-08 09:11 | PM.DCS ---
Discharge Providers Date of Admission: 01/07/24 12:39 Date of Discharge: January 13, 2024 Attending Provider at Admission: Brittni Vyas MD Attending Provider at Discharge: Brittni Vyas MD Primary Care Provider: Beau Weeks DO Diagnoses at Discharge Discharge Diagnosis (1) COPD (chronic obstructive pulmonary disease): Status: Chronic Qualifiers: COPD type: emphysema Emphysema type: unspecified Qualified Code(s): J43.9 - Emphysema, unspecified (2) Dyspnea: Status: Resolved Qualifiers: Dyspnea type: shortness of breath Qualified Code(s): R06.02 - Shortness of breath (3) Hypoxia: Status: Acute Reason for Visit Reason for Visit: SOB Hospital Course Hospital Course Patient was admitted for shortness of breath and she had failed steroids and antibiotics outpatient. Does not take LAMA LABA ICS for COPD. Does not use oxygen at baseline. She was admitted and placed on 2 L of oxygen. Sputum culture was requested. There was suspicion for new onset heart failure. She was given Lasix. Echo did show diastolic dysfunction. Patient reported feeling better day 2 of hospitalization and requested to go home. It was discussed with her to stay longer for IV diuresis however she wanted to go home and follow-up with her primary care doctor. BNP was 845. She was sent home on Lasix 20 oral daily for 7 days along with potassium. Azithromycin was also given to treat for COPD exacerbation. Patient does take Spiriva at home. Albuterol was continued, she also has a nebulizer at home. We requested BMP within a week at home. Oxygen was set up. We also gave referral for cardiology at discharge. I believe her symptoms are more due to heart failure than a COPD exacerbation. Patient will be high risk for readmission. Physical Exam Narrative: See progress note from today. Discharge Data Studies Completed and Pending Completed Studies During Hospitalization Category Date Time Status CTA PE [CT angio chest PE protcl [id number]] Urgent Cat Scan 01/08/24 08:51 Completed XR chest 1V portable [id number] Stat Exams 01/07/24 08:40 Completed CV. echo complete* [id number] Routine Ultrasound 01/07/24 14:46 Completed Radiology Impressions Chest X-Ray 01/07/24 08:40 Impression: Atherosclerosis. Chest CTA 01/08/24 08:51 IMPRESSION: 1. No pulmonary embolism. 2. Mild pulmonary hypertension. 3. No pneumonia or pulmonary mass. 4. Mild LEFT heart enlargement. 5. Prior RIGHT mastectomy. 6. Prior cholecystectomy. Laboratory Results WBC 13.82 10^3/uL (3.29-11.43) H 01/08/24 05:20 RBC 4.97 10^6/uL (3.85-5.65) 01/08/24 05:20 Hgb 11.00 g/dL (11.27-16.99) L 01/08/24 05:20 Hct 37.9 % (36-47) 01/08/24 05:20 MCV 76.3 fl (85-98) L D 01/08/24 05:20 MCH 22.1 pg (27-33) L 01/08/24 05:20 MCHC 29.0 g/dL (30-55) L D 01/08/24 05:20 RDW 16.4 % (12.1-15.1) H 01/08/24 05:20 Plt Count 277 10^3/cmm (157-399) 01/08/24 05:20 MPV 10.5 fL (7.4-10.4) H 01/08/24 05:20 Neut % (Auto) 85.1 % 01/08/24 05:20 Lymph % (Auto) 9.0 % 01/08/24 05:20 Mower % (Auto) 4.7 % 01/08/24 05:20 Eos % (Auto) 0.0 % 01/08/24 05:20 Baso % (Auto) 0.1 % 01/08/24 05:20 Neut # (Auto) 11.76 10^3/uL (1.8-7.7) H 01/08/24 05:20 Lymph # (Auto) 1.2 10^3/uL (0.8-4.8) 01/08/24 05:20 Mower # (Auto) 0.7 10^3/uL (0.2-0.9) 01/08/24 05:20 Eos # (Auto) 0.0 10^3/uL (0.0-0.8) 01/08/24 05:20 Baso # (Auto) 0.0 10^3/uL (0.0-0.1) 01/08/24 05:20 Nucleated RBC % (auto) 0.1 % 01/08/24 05:20 Nucleated RBCs # 0.0 /100WBC 01/08/24 05:20 D-Dimer 0.63 ug/mLFEU (0-0.59) H 01/07/24 09:01 Sodium 141 mmol/L (136-145) 01/08/24 05:20 Potassium 4.2 mmol/L (3.5-5.1) 01/08/24 05:20 Chloride 100 mmol/L (98-107) 01/08/24 05:20 Carbon Dioxide 32 mmol/L (22-29) H 01/08/24 05:20 Anion Gap 13.2 (5-19) 01/08/24 05:20 BUN 18 mg/dL (8-23) 01/08/24 05:20 Creatinine 0.7 mg/dL (0.5-0.9) 01/08/24 05:20 GFR Calculation Not Reportable 01/08/24 05:20 Glucose 161 mg/dL (65-115) H 01/08/24 05:20 POC Glucose 248 mg/dL (70-110) H 01/08/24 10:27 Estimat Average Glucose 186 01/07/24 09:01 Hemoglobin A1c 8.1 % (4.0-6.0) H 01/07/24 09:01 Calculated Osmolality 297 mOsm/kg (285-295) H 01/08/24 05:20 Calcium 9.2 mg/dL (8.5-10.5) 01/08/24 05:20 Phosphorus 4.0 mg/dL (2.5-4.5) 01/08/24 05:20 Magnesium 1.9 mg/dL (1.7-2.3) 01/08/24 05:20 Total Bilirubin 0.4 mg/dL (0.15-1.2) 01/07/24 09:01 AST 12 U/L (0-32) 01/07/24 09:01 ALT 10 U/L (0-33) 01/07/24 09:01 Alkaline Phosphatase 76 U/L (35-105) 01/07/24 09:01 C-Reactive Protein 4.3 mg/L (0.0-4.9) 01/08/24 05:20 NT-Pro-B Natriuret Pep 945 pg/mL (0-125) H 01/07/24 09:01 Total Protein 6.8 g/dL (6.6-8.7) 01/07/24 09:01 Albumin 3.8 g/dL (3.5-5.2) 01/07/24 09:01 Globulin 3.0 g/dL (1.3-4.6) 01/07/24 09:01 Vitamin B12 199 pg/mL (232-1245) L 01/07/24 09:01 Procalcitonin 0.04 ng/mL (0-0.5) 01/07/24 09:01 Coronavirus (PCR) Negative (Negative) 01/07/24 09:18 Influenza A (PCR) Negative (Negative) 01/07/24 09:18 Influenza Type B (PCR) Negative (Negative) 01/07/24 09:18 RSV (PCR) Negative (Negative) 01/07/24 09:18 Vitals Last Vital Signs Temp 98.3 F 01/08/24 16:40 Pulse 58 L 01/08/24 16:40 Resp 14 01/08/24 16:40 BP 123/83 01/08/24 16:40 Pulse Ox 96 01/08/24 16:40 O2 Del Method Nasal Cannula 01/08/24 16:00 O2 Flow Rate 2 01/08/24 16:00 Discharge Plan Discharge Patient Disposition: Home Condition: Stable Prescriptions: New azithromycin 250 mg Tablet 500 mg PO DAILY Qty: 4 0RF benzonatate 100 mg Capsule 100 mg PO TID PRN (Reason: Cough) Qty: 10 0RF furosemide [Lasix] 20 mg tablet 20 mg PO DAILY 7 Days Qty: 7 0RF potassium chloride 8 mEq capsule, extended release 8 meq PO DAILY 7 Days Qty: 7 0RF Rx Instructions: take with lasix Continued aspirin 81 mg tablet,delayed release (DR/EC) 81 mg PO DAILY benzonatate 100 mg capsule 100 mg PO TID Qty: 30 0RF levofloxacin 750 mg tablet 750 mg PO DAILY Qty: 5 0RF triamcinolone acetonide 0.1 % cream 1 applic topical DAILY Qty: 30 0RF Spiriva with HandiHaler 18 mcg capsule, w/inhalation device 1 cap inhalation DAILY Qty: 60 5RF Rx Instructions: puncture 1 cap using device; one dose = 2 inhalations cholecalciferol (vitamin D3) 125 mcg (5,000 unit) capsule 125 mcg PO DAILY methocarbamol 750 mg tablet 750 mg PO Q8H Qty: 30 0RF ipratropium-albuterol 0.5 mg-3 mg(2.5 mg base)/3 mL solution for nebulization See Rx Instructions .ROUTE .COMPLEX Qty: 180 0RF Dose Instruction: USE 3 ML IN NEBULIZER EVERY 6 HOURS NEEDED FOR WHEEZING Rx Instructions: USE 3 ML IN NEBULIZER EVERY 6 HOURS NEEDED FOR WHEEZING albuterol sulfate 90 mcg/actuation HFA aerosol inhaler See Rx Instructions .ROUTE .COMPLEX Qty: 9 0RF Dose Instruction: INHALE 2 PUFFS BY MOUTH EVERY 6 HOURS NEEDED FOR SHORTNESS OF BREATH FOR WHEEZING Rx Instructions: INHALE 2 PUFFS BY MOUTH EVERY 6 HOURS NEEDED FOR SHORTNESS OF BREATH FOR WHEEZING atorvastatin 40 mg tablet 40 mg PO DAILY glipizide 10 mg tablet 10 mg PO BID pantoprazole 40 mg tablet,delayed release (DR/EC) 40 mg PO DAILY metformin 1,000 mg tablet 1,000 mg PO BID Rx Instructions: Take 1 tablet by mouth twice daily montelukast 10 mg tablet 10 mg PO DAILY Discharge Orders: Discharge Order (Routine); Ordered 01/08/24 Ordered By: Brittni Vyas Other Ambulatory Orders: DME: Oxygen (Order) Location: None Selected Ordered By: Brittni Vyas NT Pro B Type Natriuretic Pept (Routine) Timeframe: 1 Week Facility: [facility] - Location: Lab - Main Lab Ordered By: Brittni Vyas Referrals: [facility] [place] [Outside] Alisson Huerta DO [Physician] - 01/11/24 1:00 pm () Lidia Hooper FNP [Nurse Practitioner] - (We have notified your physician's clinic of the need for a follow-up appointment to be scheduled. If you have not heard from them within the next 2 business days, please call them directly. ) Discharge Diet: Cardiac and Diabetic Discharge Activity: Resume usual activity and Oxygen as instructed Patient Instructions: Furosemide (By mouth), Prednisone (By mouth), Potassium Chloride (By mouth), Azithromycin (By mouth), Heart Failure (DC), COPD (Chronic Obstructive Pulmonary Disease) (DC), CHF Stoplight, Opioid Safety Stand Alone Forms: Work/School Release Discharge Attestations Time Spent in Discharge Care*: less than 30 min Quality Metrics Clinical Quality Measures [ No reported AMI, CVA or VTE this stay] Coding Level of Care Code Acute Code for Chg Fwd Diagnoses Pulmonary emphysema, unspecified emphysema type J43.9 COPD type: emphysema Emphysema type: unspecified Shortness of breath R06.02 Dyspnea type: shortness of breath Hypoxia R09.02
[2024-01-08] MEDS: iohexol 350 mg/mL 500 mL Btl (per mL) IV (09:19)
[2024-01-08 10:33] LABS: Glucose Point of Care 248 mg/dL (70-110)
[2024-01-08 10:33] LABS: Glucose Point of Care 239 mg/dL (70-110)
[2024-01-08] MEDS: FUROsemide 10 mg/mL SDV 4mL 40 MG IVP (11:18)
--- NOTE | 2024-01-08 12:38 | P.PN_ITS ---
Subjective 2 Subjective: Seen this morning. Patient does have 1+ edema bilateral lower extremities Lungs clear to auscultation New oxygen requirement 2 L nasal cannula. Did have Lasix 20 IV x 1 in the ER yesterday. Echo is pending at this time. CTA chest ordered which ruled out PE. D-dimer elevated 0.63. Vitals/I&O/Wt Last Vital Signs Temp 97.8 F 01/08/24 12:00 Pulse 70 01/08/24 12:00 Resp 18 01/08/24 08:42 BP 101/68 01/08/24 12:00 Pulse Ox 92 01/08/24 12:00 O2 Del Method Nasal Cannula 01/08/24 12:00 O2 Flow Rate 2 01/08/24 12:00 01/07/24 01/08/24 01/08/24 22:59 06:59 14:59 Intake Total 240 / 240 Balance 240 / 240 Weight last 48 hrs Weight 90.435 kg Weight 91.626 kg Weight 92.986 kg Physical Exam 2 Narrative: Lungs clear to auscultation bilaterally no wheezes or rhonchi appreciated. GCS 15 1+ bilateral lower extremity edema prese nt. S1, S2 Awake and alert Pleasant cooperative No active chest pain Currently on room air saturating 90% Data 01/08/24 05:20 01/08/24 05:20 A&P Assessment and plan (1) COPD (chronic obstructive pulmonary disease): Qualifiers: COPD type: emphysema Emphysema type: unspecified Qualified Code(s): J 43.9 - Emphysema, unspecified (2) Dyspnea: Qualifiers: Dyspnea type: shortness of breath Qualified Code(s): R06.02 - Shortness of breath (3) Hypoxia: Plan Acute hypoxia COPD exacerbation Patient saturating 88 to 90% on room air Will need 2 L of oxygen Add steroids, continue ceftriaxone azithromycin Requested sputum culture, Patient will need LAMA LABA ICS combination on discharge Requested D-dimer She also has lower extremity edema which could be related to use of steroids however I will like to get BNP and echo to rule out new onset heart failure Full code Cardiac diet Consistent carb insulin sliding scale DVT prophylaxis added 01/07 lasix 40 IV x 1. will dc on oral lasix continue 2L NC, new oxygen requirement continue solumedrol q24h continue glargine 5 units daily accucheck ac/hs check hba1c check echo bnp 845 will need to evaluate echo prior to dc. pt will need diuresis Attestations 2 Medical Necessity Statement*: Anticipating discharge within 48 hours Diagnoses Pulmonary emphysema, unspecified emphysema type J43.9 COPD type: emphysema Emphysema type: unspecified Shortness of breath R06.02 Dyspnea type: shortness of breath Hypoxia R09.02
[2024-01-08] MEDS: cefTRIAXone 1,000 mg SDV 1000 MG IVP (14:23)
[2024-01-08] MEDS: enoxaparin 40 mg/0.4 mL Syringe SUBCUT (14:23)
--- NOTE | 2024-01-08 16:37 | PC.NURSE ---
Discharge Note Patient discharged to home via private vehicle accompanied by daughter. Discharge instructions reviewed with patient and/or phlebotomy services representative. Mobile pharmacy medications and/or prescriptions provided. Belongings/home medications returned.
== END 2024-01-08 16:45 | disposition home or self-care (01) ==
LOC: ER 12:12 → MEDSURG 12:40
PROVIDERS: Internal Medicine; Admitting Provider Internal Medicine; Emergency Provider Emergency Medicine; PCP Family Medicine; Visit Provider Internal Medicine
DX: J44.1 Chronic obstructive pulmonary disease with (acute) exacerbation (principal); R06.02 Shortness of breath; R09.02 Hypoxemia; E13.8 Other specified diabetes mellitus with unspecified complications; F17.200 Nicotine dependence, unspecified, uncomplicated; Z79.82 Long term (current) use of aspirin
CPT/HCPCS: 0241U; 36415; 36416; 71045; 71275; 80048; 80053; 82607; 82962; 83036; 83735; 83880; 84100; 84145; 85025; 85378; 86140; 87070; 87205; 93306; 94640; 94664; 94760; 96372; 96374; 96375; 96376; 99285; G0378; J0696; J1650; J1815; J1940; J2919; J7613; Q0144

== ENCOUNTER 2024-01-14 12:38 | Emergency (ER) | payer MEDICARE, SELFPAY ==
[2024-01-14 13:03] VITALS: BP 76/57; PULSE 75; RESP 22; TEMP 36.4; O2SAT 93
--- NOTE | 2024-01-14 13:08 | ECG_ITS ---
[facility] Test Date: 2024-01-14 Pat Name: Maranda Garcia Department: Room: Gender: Female Change Number Operator: : [id number] Requested By: Attila Goldstein Order Number: [id number] Drew MD: Luis Angel Head M.D. Measurements Intervals [place] Rate: 75 P: 12 PA: 133 QRS: 32 QRSD: 84 T: 68 QT: 395 QTc: 443 Interpretive Statements SINUS RHYTHM NONSPECIFIC ST & T-WAVE ABNORMALITY Compared to ECG 05/12/2017 11:01:49 T-wave abnormality now present Indeterminate axis no longer present Electronically Signed On 01-14-2024 22:57:40 CDT by Luis Angel Head M.D. [email or web address]
--- NOTE | 2024-01-14 14:02 | XR_ITS ---
WS: [id number] Exam: XR chest 1V portable [id number] Date/Time of Exam: 01/14/2024 2:23 PM Reason For Exam: Shortness of breath Comparison 01/07/2024. The lungs are fully inflated and clear. Normal cardiomediastinal silhouette and regional bony element s. Spondylosis of the T-spine. No pleural effusion. XR/XR chest 1V portable [id number] IMPRESSION: 1. No acute cardiopulmonary finding.
[2024-01-14 14:38] LABS: Basophils # 0.1 10^3/uL (0.0-0.1); Basophils % 0.6 %; Eosinophils # 0.1 10^3/uL (0.0-0.8); Eosinophils % 1.3 %; Hematocrit 42.4 % (36-47); Lymphocytes % 28.3 %; Mean Corpuscular HGB Conc 28.8 g/dL (30-55); Mean Corpuscular Volume 76.5 fl (85-98); Mean Platelet Volume 10.5 fL (7.4-10.4); Monocytes % 9.3 %; Neutrophils # 6.28 10^3/uL (1.8-7.7); Neutrophils % 59.9 %; Nucleated Red Blood Cells % 0 %; Platelet Count 373 10^3/cmm (157-399); Red Blood Count 5.54 10^6/uL (3.85-5.65); Red Cell Distribution Width 16.3 % (12.1-15.1); White Blood Count 10.47 10^3/uL (3.29-11.43)
[2024-01-14 14:57] LABS: Troponin(5th) Baseline 14 ng/L (0-10)
[2024-01-14 14:59] LABS: Lactic Sepsis W/Reflex 1.3 mmol/L (0.5-2.2)
[2024-01-14 15:09] LABS: Alanine Aminotransferase 19 U/L (0-33); Albumin Level 3.9 g/dL (3.5-5.2); Alkaline Phosphatase 71 U/L (35-105); Aspartate Amino Transferase 15 U/L (0-32); Blood Urea Nitrogen 16 mg/dL (8-23); Calcium 8.9 mg/dL (8.5-10.5); Carbon Dioxide 32 mmol/L (22-29); Chloride 96 mmol/L (98-107); Creatinine Clr Calc Pharmacy 59.3763; Globulin 1.8 g/dL (1.3-4.6); Glucose 173 mg/dL (65-115); NT Pro B Type Natriuretic Pept 166 pg/mL (0-125); Osmolality Calculated 293 mOsm/kg (285-295); Sodium 139 mmol/L (136-145); Total Bilirubin 0.4 mg/dL (0.15-1.2); Total Protein 5.7 g/dL (6.6-8.7)
[2024-01-14 15:10] LABS: ABG PCO2 49.1 mmHg (35-45); ABG PH Result 7.44 (7.35-7.45); Alveolar-Arterial Oxygen Gradi 6.9 mmHg (5-10); Arterial Blood Gas Hematocrit 36.9 % (37-47); Base Excess ABG 7.7 mmol/L (-2.0-2.0); Blood Gas Allen Test Pos; Blood Gas Operator Identificat MONRO; Blood Gas Sample Site Radial, left; Blood Gas Sample Type Arterial; Carboxyhemoglobin 4.4 %THgb (0.4-20.1); HCO3 ABG 33.1 mmol/L (22-26); HGB O2 Sat 92.7 % (95-100); Ionized Calcium Level - ABG 1.2 mmol/L (1.1-1.4); Methemoglobin 0.4 % (0.4-1.5); Oxygen Device NC; Oxygen Saturation ABG 97.3; PO2 ABG 85.8 mmHg (80.0-100.0); PO2 FiO2 Ratio Arterial Blood 306; Potassium Level - ABG 3.6 mmol/L (3.5-5.0)
--- NOTE | 2024-01-14 15:22 | ED_ITS ---
HPI - SOB/Dyspnea 2 General: Chief Complaint: Shortness of Breath/Dyspnea Stated Complaint: sob Time Seen by Provider: 01/14/24 14:16 History of Present Illness: HPI Narrative: 73-year-old female with a history of typ e 2 diabetes, COPD and reports congestive heart failure who was recently admitted to the hospital and treated for COPD exacerbation. She has chronic hypoxemic respiratory failure and is on 2 L nasal cannula at all times. She says she came in because she gained about 6 pounds overnight. She does not really have any swelling in her legs. When I ask her about her water intake she says she does not drink very much. She then says her daughter is a nurse told her she needs to drink 9 cups of water a day. We discussed that fluid restriction is important if you do have CHF. She also had noted some chest discomfort and tightness over the last day. No increased oxygen requirements. No nausea or vomiting. No abdominal pain. No altered mental status. Related Data Home Medications Medication Instructions Recorded Confirmed aspirin 81 mg tablet,delayed 81 mg PO DAILY 10/10/19 01/14/24 release atorvastatin 40 mg tablet 40 mg PO DAILY 01/07/24 01/14/24 glipizide 10 mg tablet 10 mg PO BID 01/07/24 01/14/24 metformin 1,000 mg tablet 1,000 mg PO BID 01/07/24 01/14/24 montelukast 10 mg tablet 10 mg PO DAILY 01/07/24 01/14/24 pantoprazole 40 mg tablet,delayed 40 mg PO DAILY 01/07/24 01/14/24 release Previous Rx's Medication Instructions Recorded tiotropium bromide 18 mcg capsule 1 cap inhalation DAILY #60 09/16/22 with inhalation device (Spiriva inhalations with HandiHaler) ipratropium 0.5 mg-albuterol 3 mg See Rx Instructions .Route 03/02/23 (2.5 mg base)/3 mL nebulization .COMPLEX #180 mL soln albuterol sulfate 90 mcg/actuation See Rx Instructions .Route 11/16/23 aerosol inhaler .COMPLEX #9 grams furosemide 20 mg tablet (Lasix) 20 mg PO DAILY 7 days #7 tabs 01/08/24 potassium chloride 8 mEq 8 meq PO DAILY 7 days #7 caps 01/08/24 capsule,extended release Allergies Allergy/AdvReac Type Severity Reaction Status Date / Time amoxicillin Allergy Mild ALGY-Rash Verified 01/14/24 13:09 erythromycin base Allergy Mild ALGY-Rash Verified 01/14/24 13:09 cephalexin [From Keflex] Allergy ALGY-Rash Verified 01/14/24 13:09 guaifenesin [From Mucinex] Allergy ALGY-Hives Verified 01/14/24 13:09 lisinopril Allergy Unknown Verified 01/14/24 13:09 naproxen Allergy unknown Verified 01/14/24 13:09 propoxyphene [From Darvon] Allergy Unknown Verified 01/14/24 13:09 rosuvastatin [From Crestor] Allergy unknown Verified 01/14/24 13:09 Review of Systems 2 Narrative: Constitutional symptoms: Negative except as documented in HPI. Skin symptoms: Negative except as documented in HPI. Eye symptoms: Negative except as documented in HPI. ENMT symptoms: Negative except as documented in HPI. Respiratory symptoms: Negative except as documented in HPI. Cardiovascular symptoms: Negative except as documented in HPI. Gastrointestinal symptoms: Negative except as documented in HPI. Genitourinary symptoms: Negative except as documented in HPI. Musculoskeletal symptoms: Negative except as documented in HPI. Neurologic symptoms: Negative except as documented in HPI. Psychiatric symptoms: Negative except as documented in HPI. Endocrine symptoms: Negative except as documented in HPI. PFSH ED 2 PFSH: Medical History (Updated 01/14/24 @ 15:26 by Yodit Grady MD) Diabetes 1.5, managed as type 2 Surgical History (Updated 01/07/24 @ 14:44 by Dani Oerllana MD) History of tonsillectomy Hx of colonoscopy Dr. Bean at [facility] History of esophagogastroduodenoscopy (EGD) Dr. Bean at [facility] Family History Father Diabetes Mother Diabetes Congestive heart failure (CHF) Other Cancer Dementia Social History Smoking and tobacco/nicotine status: current every day tobacco/nicotine user Alcohol intake: never Substance/Drug Use: never Adopted: No Marital status: / Number of children: 2 service: No Current gender identity: Female Physical Exam 2 Narrative: EXAM NARRATIVE: General: Alert, no acute distress. Skin: Warm, dry. Head: Normocephalic, atraumatic. Neck: Supple, trachea midline. Eye: Extraocular movements are intact. Ears, nose, mouth and throat: mucosa moist. Cardiovascular: Regular, Normal peripheral perfusion. Respiratory: Lungs are clear to auscultation, respirations are non-labored, breath sounds are equal, Symmetrical chest wall expansion. Gastrointestinal: Soft, Nontender, Non distended Musculoskeletal: Normal ROM, no deformity. Neurological: Alert and oriented, No focal neurological deficit observed. Psychiatric: Cooperative, appropriate mood & affect. Course 2 Vital Signs: Vital signs: Vital Signs Temperature 97.6 F 01/14/24 13:03 Pulse Rate 75 01/14/24 13:03 Respiratory Rate 22 H 01/14/24 13:03 Blood Pressure 76/57 01/14/24 13:03 Pulse Oximetry 93 01/14/24 13:03 Oxygen Delivery Me thod Nasal Cannula 01/14/24 13:03 Oxygen Flow Rate 2 01/14/24 13:03 MDM - SOB/Dyspnea Medical Decision Making Differential diagnosis for patient with shortness of breath includes but is not limited to and based on the above HPI, review of systems and physical exam: Pneumonia. Bronchitis. Asthma or COPD with acute exacerbation. Acute coronary syndrome / OR. Pulmonary embolism. Anxiety. Congestive heart failure. Viral infections including influenza and Covid-19. Atrial fibrillation. Anxiety. Pleural effusion. Pneumothorax. Orders placed to evaluate differential diagnosis based on the above differential, HPI and physical exam EKG: Time 1308. Rate 75. Normal sinus rhythm, nonspecific ST wave abnormalities, no ectopy, normal NH & QRS intervals, This was reviewed and interpreted by myself the ER physician at 1312. Chest x-ray: No acute process. No infiltrate. No pneumothorax. This was reviewed and interpreted by myself the ER physician. Lab Review: Laboratory results were reviewed and interpreted by myself the emergency room physician. Lab work is unremarkable. No elevation in her white count. Hemoglobin is stable. No renal failure. proBNP is negative. I reviewed the patient's medical record. Reexamination: Patient remained stable. No increased work of breathing. No increased oxygen requirements. We discussed fluid restrictions etc. to prevent fluid overload if she does have congestive heart failure. Not sure that this is an official diagnosis. Assessment and plan: Dyspnea Chronic hypoxemic respiratory failure Weight gain ?40 mg IV Lasix in the emergency room. - Discharged home - Discussed plan with patient. Answered any questions. - Evaluation and treatment of this problem were appropriate in the emergency setting. Lab Data 01/14/24 14:14 01/14/24 14:14 Labs/Radiology: Radiology Impressions Chest X-Ray 01/14/24 14:02 IMPRESSION: 1. No acute cardiopulmonary finding. Laboratory Results WBC 10.47 10^3/uL (3.29-11.43) 01/14/24 14:14 RBC 5.54 10^6/uL (3.85-5.65) 01/14/24 14:14 Hgb 12.20 g/dL (11.27-16.99) 01/14/24 14:14 Hct 42.4 % (36-47) 01/14/24 14:14 MCV 76.5 fl (85-98) L 01/14/24 14:14 MCH 22.0 pg (27-33) L 01/14/24 14:14 MCHC 28.8 g/dL (30-55) L 01/14/24 14:14 RDW 16.3 % (12.1-15.1) H 01/14/24 14:14 Plt Count 373 10^3/cmm (157-399) 01/14/24 14:14 MPV 10.5 fL (7.4-10.4) H 01/14/24 14:14 Neut % (Auto) 59.9 % 01/14/24 14:14 Lymph % (Auto) 28.3 % 01/14/24 14:14 [place] % (Auto) 9.3 % 01/14/24 14:14 Eos % (Auto) 1.3 % 01/14/24 14:14 Baso % (Auto) 0.6 % 01/14/24 14:14 Neut # (Auto) 6.28 10^3/uL (1.8-7.7) 01/14/24 14:14 Lymph # (Auto) 3.0 10^3/uL (0.8-4.8) 01/14/24 14:14 [place] # (Auto) 1.0 10^3/uL (0.2-0.9) H 01/14/24 14:14 Eos # (Auto) 0.1 10^3/uL (0.0-0.8) 01/14/24 14:14 Baso # (Auto) 0.1 10^3/uL (0.0-0.1) 01/14/24 14:14 Nucleated RBC % (auto) 0 % 01/14/24 14:14 Nucleated RBCs # 0.0 /100WBC 01/14/24 14:14 Specimen Type Arterial 01/14/24 14:57 Sample Site Radial, left 01/14/24 14:57 ABG pH 7.44 (7.35-7.45) 01/14/24 14:57 ABG pCO2 49.1 mmHg (35-45) H 01/14/24 14:57 ABG pO2 85.8 mmHg (80.0-100.0) 01/14/24 14:57 ABG PO2/FiO2 Ratio 306 01/14/24 14:57 ABG HCO3 33.1 mmol/L (22-26) H 01/14/24 14:57 ABG O2 Saturation 97.3 01/14/24 14:57 ABG Base Excess 7.7 mmol/L (-2.0-2.0) H 01/14/24 14:57 Raúl Test Pos 01/14/24 14:57 A-a O2 Gradient 6.9 mmHg (5-10) 01/14/24 14:57 Hematocrit 36.9 % (37-47) L 01/14/24 14:57 Hgb O2 Saturation 92.7 % (95-100) L 01/14/24 14:57 Carboxyhemoglobin 4.4 %THgb (0.4-20.1) 01/14/24 14:57 Methemoglobin 0.4 % (0.4-1.5) 01/14/24 14:57 Total Hemoglobin 12.0 g/dL (12-16) 01/14/24 14:57 Sodium 139.0 mmol/L (131-143) 01/14/24 14:57 Potassium 3.6 mmol/L (3.5-5.0) 01/14/24 14:57 Glucose 147.0 mg/dL (70-115) H 01/14/24 14:57 Ionized Calcium 1.2 mmol/L (1.1-1.4) 01/14/24 14:57 O2 Delivery Device Nc 01/14/24 14:57 O2 Liters/Min 2.0 % 01/14/24 14:57 FiO2 28.0 % 01/14/24 14:57 Architectural Intern ID [place]hell 01/14/24 14:57 Sodium 139 mmol/L (136-145) 01/14/24 14:14 Potassium 4.0 mmol/L (3.5-5.1) 01/14/24 14:14 Chloride 96 mmol/L (98-107) L 01/14/24 14:14 Carbon Dioxide 32 mmol/L (22-29) H 01/14/24 14:14 Anion Gap 15.0 (5-19) 01/14/24 14:14 BUN 16 mg/dL (8-23) 01/14/24 14:14 Creatinine 0.9 mg/dL (0.5-0.9) 01/14/24 14:14 GFR Calculation Not Reportable 01/14/24 14:14 Glucose 173 mg/dL (65-115) H 01/14/24 14:14 Calculated Osmolality 293 mOsm/kg (285-295) 01/14/24 14:14 Lactic Acid 1.3 mmol/L (0.5-2.2) 01/14/24 14:14 Calcium 8.9 mg/dL (8.5-10.5) 01/14/24 14:14 Total Bilirubin 0.4 mg/dL (0.15-1.2) 01/14/24 14:14 AST 15 U/L (0-32) 01/14/24 14:14 ALT 19 U/L (0-33) 01/14/24 14:14 Alkaline Phosphatase 71 U/L (35-105) 01/14/24 14:14 Troponin T Baseline 14 ng/L (0-10) H 01/14/24 14:14 NT-Pro-B Natriuret Pep 166 pg/mL (0-125) H 01/14/24 14:14 Total Protein 5.7 g/dL (6.6-8.7) L 01/14/24 14:14 Albumin 3.9 g/dL (3.5-5.2) 01/14/24 14:14 Globulin 1.8 g/dL (1.3-4.6) 01/14/24 14:14 All radiology interpretation(s) finalized by discharge Discharge Plan Discharge Patient Disposition: Home Clinical Impression: Abnormal weight gain, SOB (shortness of breath) Condition: Stable Prescriptions: No Action aspirin 81 mg tablet,delayed release (DR/EC) 81 mg PO DAILY Spiriva with HandiHaler 18 mcg capsule, w/inhalation device 1 cap inhalation DAILY Qty: 60 5RF Rx Instructions: puncture 1 cap using device; one dose = 2 inhalations ipratropium-albuterol 0.5 mg-3 mg(2.5 mg base)/3 mL solution for nebulization See Rx Instructions .ROUTE .COMPLEX Qty: 180 0RF Dose Instruction: USE 3 ML IN NEBULIZER EVERY 6 HOURS NEEDED FOR WHEEZING Rx Instructions: USE 3 ML IN NEBULIZER EVERY 6 HOURS NEEDED FOR WHEEZING albuterol sulfate 90 mcg/actuation HFA aerosol inhaler See Rx Instructions .ROUTE .COMPLEX Qty: 9 0RF Dose Instruction: INHALE 2 PUFFS BY MOUTH EVERY 6 HOURS NEEDED FOR SHORTNESS OF BREATH FOR WHEEZING Rx Instructions: INHALE 2 PUFFS BY MOUTH EVERY 6 HOURS NEEDED FOR SHORTNESS OF BREATH FOR WHEEZING atorvastatin 40 mg tablet 40 mg PO DAILY glipizide 10 mg tablet 10 mg PO BID pantoprazole 40 mg tablet,delayed release (DR/EC) 40 mg PO DAILY metformin 1,000 mg tablet 1,000 mg PO BID montelukast 10 mg tablet 10 mg PO DAILY furosemide [Lasix] 20 mg tablet 20 mg PO DAILY 7 Days Qty: 7 0RF potassium chloride 8 mEq capsule, extended release 8 meq PO DAILY 7 Days Qty: 7 0RF Rx Instructions: take with lasix Discharge Orders: Discharge ED (Routine); Ordered 01/14/24 Ordered By: Yodit Grady Referrals: Beau Weeks DO [Primary Care Provider] - Discharge Diet: Usual diet Discharge Activity: Increase activity as tolerated Patient Instructions: Shortness of Breath (ED) Activity Restrictions/Additional Instructions: Thank you for choosing [facility] for your healthcare needs today. Please realize this is an emergency room and that we are providing you with a medical screening exam and this may not be complete and all inclusive of all the testing and or work up that you may need to determine your ailment or severity of your illness. You have been screened and evaluated and felt safe for discharge. Health conditions do change or evolve sometimes and as such it is important that you follow up with your Primary Doctor to be re checked, 3-5 days is a general good time frame for follow up. 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
[2024-01-14 15:32] VITALS: BP 135/63; PULSE 68; RESP 18; O2SAT 97
[2024-01-14] MEDS: FUROsemide 10 mg/mL SDV 4mL 40 MG IVP (15:32)
[2024-01-14 15:55] VITALS: BP 133/60; PULSE 72; O2SAT 96
== END 2024-01-14 15:56 | disposition home or self-care (01) ==
PROVIDERS: Emergency Provider Emergency Medicine; PCP Family Medicine
DX: R63.5 Abnormal weight gain (principal); J96.11 Chronic respiratory failure with hypoxia; Z99.81 Dependence on supplemental oxygen; E11.9 Type 2 diabetes mellitus without complications; I50.9 Heart failure, unspecified; J44.9 Chronic obstructive pulmonary disease, unspecified
CPT/HCPCS: 36415; 36600; 71045; 80051; 80053; 82330; 82805; 83605; 83880; 84484; 85025; 87040; 93005; 96374; 99285; J1940

== ENCOUNTER → 2024-02-23 13:15 | Outpatient (BNVA) | payer MEDICARE, SELFPAY | PROVIDERS: PCP Family Medicine; Visit Provider Internal Medicine | DX: R07.9 Chest pain, unspecified (principal); I35.0 Nonrheumatic aortic (valve) stenosis; E78.2 Mixed hyperlipidemia; E11.65 Type 2 diabetes mellitus with hyperglycemia; F17.200 Nicotine dependence, unspecified, uncomplicated; R94.31 Abnormal electrocardiogram [ECG] [EKG] | CPT/HCPCS: 93005; 99204 ==

== ENCOUNTER 2024-06-08 09:38 | Outpatient (CLI) | payer MEDICARE, MEDICAID, SELFPAY ==
--- NOTE | 2024-06-08 09:48 | MM_ITS ---
WS: [id number] DIAGNOSTIC LEFT DIGITAL TOMOSYNTHESIS MAMMOGRAPHY WITH CAD. HISTORY: HX OF BREAST CA COMPARISON: 08/02/2021, 10/31/2019 Technique: CC, MLO and ML views. Breast composition: There are scattered areas of fibroglandular density. Numerous LEFT breast calcifications. These calcifications are coarse and benign in appearance. There are a few vascular calcifications. No distortion or mass. MM/MM diag LT tomosynthesis [id number] IMPRESSION: BI-RADS: 2 - Benign. FOLLOW UP: 1 Year Follow-up
== END 2024-06-08 09:39 | disposition home or self-care (01) ==
PROVIDERS: PCP Family Medicine; Visit Provider Family Medicine
DX: Z78.9 Other specified health status (principal); Z90.11 Acquired absence of right breast and nipple; Z85.3 Personal history of malignant neoplasm of breast; R92.323 Mammographic fibroglandular density, bilateral breasts; R92.1 Mammographic calcification found on diagnostic imaging of breast
CPT/HCPCS: 77061; G0279

== ENCOUNTER 2024-07-28 08:16 | Outpatient (CLI) | payer MEDICARE, MEDICAID, SELFPAY ==
--- NOTE | 2024-07-28 08:30 | USCV_ITS ---
Maranda Garcia Age: 74 Gender: F : 1950 Exam Date: 07/28/2024 08:41 Ordering Phys: Messi Hurst M.D ([email or web address]) Technologist: [place] [facility] [place]: as chf BP: 110 / 65 HR: 68 Rhythm: Sinus Technical Quality: Adequate MEASUREMENTS (Male / Female) Normal Values 2D ECHO LV Diastolic Diameter PLAX 4.1 cm 4.2 - 5.9 / 3.9 - 5.3 cm IVS Diastolic Thickness 1.9 cm 0.6 - 1.0 / 0.6 - 0.9 cm IVS Systolic Thickness 2.1 cm LVPW Diastolic Thickness 2.3 cm 0.6 - 1.0 / 0.6 - 0.9 cm LVPW Systolic Thickness 1.8 cm LVOT Diameter 2.1 cm LV Ejection Fraction 2D Teich 65.3 % LV Ejection Fraction MOD 4C 67.1 % LV Ejection Fraction MOD 2C 70.0 % LV Ejection Fraction 2C AL 69.7 % LA Diameter 3.5 cm RA Systolic Volume 4C AL 33.7 ml RA Systolic Volume 4C MOD 31.5 ml Aorta at Sinotubular Diameter 2.9 cm IVC Diameter 1.7 cm M-MODE LA Ao Ratio MM 1.1 AV Cusp Separation MM 1.9 cm DOPPLER AV Peak Velocity 349.8 cm/s LVOT Peak Velocity 95.0 cm/s AV Area Cont Eq vti 1.1 cm squared AV Area Cont Eq pk 0.9 cm squared MV Peak Velocity 154.0 cm/s MV Area PHT 3.2 cm squared Mitral E to A Ratio 0.9 TV Peak Velocity 205.5 cm/s TR Peak Velocity 245.0 cm/s TR Peak Gradient 24.0 mmHg TV Peak E Velocity 96.0 cm/s PV Peak Velocity 146.0 cm/s FINDINGS Left Ventricle Severe left ventricular hypertrophy. LV systolic function is normal with EF of 60-65% with no regional wall motion abnormalities are seen. Grade 1 diastolic dysfucntion. Right Ventricle Normal in size and function Right Atrium Normal in size Left Atrium Normal in size Mitral Valve Structurally normal mitral valve. Mild mitral regurgitation. Aortic Valve Aortic valve is thickened. Moderate aortic stenosis with aortic valve area of 1.1 cm squared and mean gradient of 21 mmHg. Tricuspid Valve Insufficient TR jet to calculate RVSP Pulmonic Valve Not well visualized Pericardium Normal Aorta Normal in size IVC Appears to be normal CONCLUSIONS LV systolic function is normal with EF of 60-65%. Grade 1 diastolic dysfunction. Mild mitral regurgitation. Moderate aortic stenosis Compared to prior echocardiogram from 2023, no significant changes are seen Messi Hurst MD (Electronically Signed) Final Date: 07 Aug 2024 11:53 S
== END 2024-07-28 08:17 | disposition home or self-care (01) ==
LOC: RAD 08:18
PROVIDERS: PCP Family Medicine; Visit Provider Internal Medicine
DX: I35.0 Nonrheumatic aortic (valve) stenosis (principal); I51.7 Cardiomegaly; R93.1 Abnormal findings on diagnostic imaging of heart and coronary circulation; I34.0 Nonrheumatic mitral (valve) insufficiency; I35.8 Other nonrheumatic aortic valve disorders
CPT/HCPCS: 93306

== ENCOUNTER 2024-09-04 19:35 | Emergency (ER) | payer MEDICARE, MEDICAID, SELFPAY ==
[2024-09-04 19:41] VITALS: BP 117/75; PULSE 70; RESP 20; TEMP 36.4; O2SAT 97; BMI 31.0
[2024-09-04 20:45] VITALS: PULSE 64; O2SAT 94
--- NOTE | 2024-09-04 20:53 | W.ED.GENADLT ---
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 Patient is chronically on furosemide 20 mg daily. Unknown if weight loss. She states this has occurred before when she was dehydrated. No dysuria. No change in shortness of breath or sputum production. Patient produces her sputum on a chronic basis. Associated symptoms: Deny chest pain, dyspnea (chronic), nausea, rash, palpitations or vomiting Related Data Home Medications ?Medication ?Instructions ?Recorded ?Confirmed aspirin 81 mg tablet,delayed 81 mg PO DAILY 10/10/19 02/23/24 release atorvastatin 40 mg tablet 40 mg PO DAILY 01/07/24 02/23/24 montelukast 10 mg tablet 10 mg PO DAILY 01/07/24 02/23/24 pantoprazole 40 mg tablet,delayed 40 mg PO DAILY 01/07/24 02/23/24 release furosemide 20 mg tablet 20 mg PO DAILY 02/23/24 02/23/24 ipratropium 0.5 mg-albuterol 3 mg 3 ml inhalation Q6H PRN 02/23/24 02/23/24 (2.5 mg base)/3 mL nebulization soln metformin 1,000 mg tablet 1,000 mg PO BID 02/23/24 02/23/24 potassium chloride 8 mEq 8 meq PO DAILY 02/23/24 02/23/24 capsule,extended release Previous Rx's ?Medication ?Instructions ?Recorded tiotropium bromide 18 mcg capsule 1 cap inhalation DAILY #60 09/16/22 with inhalation device (Spiriva inhalations with HandiHaler) ipratropium 0.5 mg-albuterol 3 mg See Rx Instructions .Route 03/02/23 (2.5 mg base)/3 mL nebulization .COMPLEX #180 mL soln albuterol sulfate 90 mcg/actuation See Rx Instructions .Route 11/16/23 aerosol inhaler .COMPLEX #9 grams glipizide 10 mg tablet 10 mg PO BID #180 tabs 01/28/24 Allergies Allergy/AdvReac Type Severity Reaction Status Date / Time amoxicillin Allergy Mild ALGY-Rash Verified 09/04/24 19:45 erythromycin base Allergy Mild ALGY-Rash Verified 09/04/24 19:45 cephalexin (From Keflex) Allergy ALGY-Rash Verified 09/04/24 19:45 guaifenesin (From Mucinex) Allergy ALGY-Hives Verified 09/04/24 19:45 lisinopril Allergy Unknown Verified 09/04/24 19:45 naproxen Allergy unknown Verified 09/04/24 19:45 propoxyphene (From Darvon) Allergy Unknown Verified 09/04/24 19:45 rosuvastatin (From Crestor) Allergy unknown Verified 09/04/24 19:45 Review of Systems General: Reports: 10 or more systems reviewed and unremarkable except in HPI and below Const: Denies: fever(s) or chills ENMT: Reports: throat pain Card: Denies: chest pain or palpitations Resp: Reports: productive cough (chronic without change) and wheezing (chronic); Denies: dyspnea (chronic) GI: Denies: abdominal pain, nausea or vomiting : Denies: flank pain or difficulty voiding Musc: Denies: neck pain or back pain Skin/Breast: Denies: rash or pruritus Psych: Denies: anxiety or depression [facility] ED PFSH: Medical History (Updated 09/04/24 @ 22:46 by ED Roblero) CHF (congestive heart failure) Diabetes 1.5, managed as type 2 Surgical History History of tonsillectomy Hx of colonoscopy Dr. Bean at [facility] History of esophagogastroduodenoscopy (EGD) Dr. Bean at [facility] Family History Father Diabetes Mother Diabetes Congestive heart failure (CHF) Other Cancer Dementia Social History Smoking and tobacco/nicotine status: current every day tobacco/nicotine user Alcohol intake: never Substance/Drug Use: never Adopted: No Marital status: / Number of children: 2 service: No Current gender identity: Female Physical Exam Const: COMMON NORMALS: no acute distress, average body habitus, patient oriented x3, no limitations and alert GENERAL APPEARANCE: cooperative and ill appearing (chronically) ORIENTATION/CONSCIOUSNESS: Yes awake, Yes oriented to person and Yes oriented to place HENMT: COMMON NORMALS: normocephalic HEAD & SCALP: normocephalic FACE & SINUS: normal facial exam MOUTH: Normal oral and palatal mucosa present THROAT: posterior oropharynx normal Eye: COMMON NORMALS: Equal, round and reactive pupils present and EOMs intact bilaterally GENERAL EYE: appearance normal, both eyes and all related structures PUPIL: Yes Equal, round and reactive pupils present Neck/C-Spine: COMMON NORMALS: full ROM Chest: COMMONS NORMALS: normal inspection of the chest and normal palpation of entire chest wall Resp: COMMON NORMALS: normal respiratory effort, No retractions and No use of accessory muscles EFFORT & INSPECTION: Yes able to speak in complete sentences and Yes symmetric chest movement AUSCULTATION: wheezes (diffuse) expiratory wheezes Cardio: COMMON NORMALS: regular rate, regular rhythm and Peripheral pulses 2+ throughout RATE: regular rate RHYTHM: regular rhythm PERIPHERAL PULSES: Peripheral pulses 2+ throughout GI: COMMON NORMALS: Normal to inspection, nondistended, normoactive bowel sounds present, Soft to palpation and No hepatosplenomegaly present AUSCULTATION: Yes normoactive bowel sounds PALPATION: Yes Soft to palpation and Yes No hepatosplenomegaly present : COMMON NORMALS: Yes no CVA tenderness BLADDER/KIDNEY EXAM: Yes no CVA tenderness Back/Pelvis: COMMON NORMALS: no CVA tenderness Extremity: COMMON NORMALS: normal to inspection and full ROM Neuro: COMMON NORMALS: patient oriented x3 and CN's II-XII intact bilaterally SENSORIUM/ORIENTATION: Yes alert, Yes oriented to person and Yes oriented to place CRANIAL NERVES: Yes CN normal except as noted SPEECH: speech normal GAIT: Yes Normal gait present MOTOR EXAM: 5/5 motor strength present throughout Skin: COMMON NORMALS: no rashes or lesions noted GENERAL SKIN EXAM: no rashes or lesions noted Course Vital Signs: Vital signs: Vital Signs Temperature 97.6 F 09/04/24 19:41 Pulse Rate 59 L 09/04/24 23:07 Respiratory Rate 20 H 09/04/24 19:41 Blood Pressure 143/69 09/04/24 23:07 Pulse Oximetry 99 09/04/24 23:07 Oxygen Delivery Me thod Nasal Cannula 09/04/24 22:15 Oxygen Flow Rate 2 09/04/24 22:15 [facility] - General Adult Medical Decision Making Patient reports to emergency room with weakness, worse upon standing, and dry mouth. This started today. Symptoms consistent with hypovolemia/overdiuresis. Will check urine analysis, COVID, flu, and routine labs. Urine analysis and laboratory data is consistent for no additional causes of her underlying weakness other than her Lasix/and dehydration with her association of dry mouth and lips. Patient will hold her Lasix until Thursday, reassess the need for this on Thursday, and if needed hold until Thursday, and then go to [facility] next week. Patient will contact primary care for follow-up/additional coordination of care. Lab Data 09/04/24 21:18 09/04/24 21:15 Radiology Impressions Chest X-Ray 09/04/24 21:58 IMPRESSION: No acute findings. Laboratory Results WBC 10.01 10^3/uL (3.29-11.43) 09/04/24 21:18 Corrected WBC Cancelled 09/04/24 21:03 RBC 5.03 10^6/uL (3.85-5.65) 09/04/24 21:18 Hgb 11.10 g/dL (11.27-16.99) L 09/04/24 21:18 Hct 38.5 % (36-47) 09/04/24 21:18 MCV 76.5 fl (85-98) L 09/04/24 21:18 MCH 22.1 pg (27-33) L 09/04/24 21:18 MCHC 28.8 g/dL (30-55) L 09/04/24 21:18 RDW 15.8 % (12.1-15.1) H 09/04/24 21:18 Plt Count 261 10^3/cmm (157-399) 09/04/24 21:18 MPV 11.2 fL (7.4-10.4) H 09/04/24 21:18 Gran % Cancelled 09/04/24 21:03 Neut % (Auto) 60.2 % 09/04/24 21:18 Lymph % (Auto) 28.1 % 09/04/24 21:18 Cassia % (Auto) 8.8 % 09/04/24 21:18 Eos % (Auto) 1.8 % 09/04/24 21:18 Baso % (Auto) 0.4 % 09/04/24 21:18 Neut # (Auto) 6.03 10^3/uL (1.8-7.7) 09/04/24 21:18 Lymph # (Auto) 2.8 10^3/uL (0.8-4.8) 09/04/24 21:18 Cassia # (Auto) 0.9 10^3/uL (0.2-0.9) 09/04/24 21:18 Eos # (Auto) 0.2 10^3/uL (0.0-0.8) 09/04/24 21:18 Baso # (Auto) 0.0 10^3/uL (0.0-0.1) 09/04/24 21:18 Absolute Gran (auto) Cancelled 09/04/24 21:03 Nucleated RBC % (auto) 0 % 09/04/24 21:18 Nucleated RBCs # 0.0 /100WBC 09/04/24 21:18 Sodium 144 mmol/L (136-145) 09/04/24 21:15 Potassium 4.3 mmol/L (3.5-5.1) 09/04/24 21:15 Chloride 104 mmol/L (98-107) 09/04/24 21:15 Carbon Dioxide 30 mmol/L (22-29) H 09/04/24 21:15 Anion Gap 14.3 (5-19) 09/04/24 21:15 BUN 11 mg/dL (8-23) 09/04/24 21:15 Creatinine 0.8 mg/dL (0.5-0.9) 09/04/24 21:15 GFR Calculation Not Reportable 09/04/24 21:15 Glucose 123 mg/dL (65-115) H 09/04/24 21:15 Calculated Osmolality 299 mOsm/kg (285-295) H 09/04/24 21:15 Calcium 9.6 mg/dL (8.5-10.5) 09/04/24 21:15 Total Bilirubin 0.3 mg/dL (0.15-1.2) 09/04/24 21:15 AST 12 U/L (0-32) 09/04/24 21:15 ALT 15 U/L (0-33) 09/04/24 21:15 Alkaline Phosphatase 98 U/L (35-105) 09/04/24 21:15 Total Protein 7.0 g/dL (6.6-8.7) 09/04/24 21:15 Albumin 4.1 g/dL (3.5-5.2) 09/04/24 21:15 Globulin 2.9 g/dL (1.3-4.6) 09/04/24 21:15 Urine Color Yellow (Yellow) 09/04/24 21:12 Urine Appearance Clear (CLEAR) 09/04/24 21:12 Urine pH 7.0 (5-7) 09/04/24 21:12 Ur Specific [place] 1.006 (1.005-1.030) 09/04/24 21:12 Urine Protein Negative (Negative) 09/04/24 21:12 Urine Glucose (UA) Negative (Normal) 09/04/24 21:12 Urine Ketones Negative (Negative) 09/04/24 21:12 Urine Blood Negative (Negative) 09/04/24 21:12 Urine Nitrate Negative (Negative) 09/04/24 21:12 Urine Bilirubin Negative (Negative) 09/04/24 21:12 Urine Urobilinogen 0.2 mg/dL (Negative) 09/04/24 21:12 Ur Leukocyte Esterase Negative (Negative) 09/04/24 21:12 Urine RBC 0-2 /hpf (0-2) 09/04/24 21:12 Urine WBC 0-5 /hpf (0-5) 09/04/24 21:12 Ur Squamous Epith Cells 0-5 /hpf (0-5) 09/04/24 21:12 Amorphous Sediment Not Reportable 09/04/24 21:12 Urine Bacteria None seen /hpf (NONE) 09/04/24 21:12 Hyaline Casts 0-4 /lpf H 09/04/24 21:12 Influenza A (PCR) Negative (Negative) 09/04/24 20:49 Influenza Type B (PCR) Negative (Negative) 09/04/24 20:49 RSV (PCR) Negative (Negative) 09/04/24 20:49 SARS-CoV-2 (PCR) Negative (Negative) 09/04/24 20:49 XR interpretation done by ED provider, pending radiology final review ED provider radiology interpretation(s): no acute, compared to previous Discharge Plan Discharge Patient Disposition: Home Clinical Impression: Acute dehydration Condition: Stable Prescriptions: No Action aspirin 81 mg tablet,delayed release (DR/EC) 81 mg PO DAILY Spiriva with HandiHaler 18 mcg capsule, w/inhalation device 1 cap inhalation DAILY Qty: 60 5RF Rx Instructions: puncture 1 cap using device; one dose = 2 inhalations ipratropium-albuterol 0.5 mg-3 mg(2.5 mg base)/3 mL solution for nebulization 3 ml inhalation Q6H PRN potassium chloride 8 mEq capsule, extended release 8 meq PO DAILY furosemide 20 mg tablet 20 mg PO DAILY ipratropium-albuterol 0.5 mg-3 mg(2.5 mg base)/3 mL solution for nebulization See Rx Instructions .ROUTE .COMPLEX Qty: 180 0RF Dose Instruction: USE 3 ML IN NEBULIZER EVERY 6 HOURS NEEDED FOR WHEEZING Rx Instructions: USE 3 ML IN NEBULIZER EVERY 6 HOURS NEEDED FOR WHEEZING albuterol sulfate 90 mcg/actuation HFA aerosol inhaler See Rx Instructions .ROUTE .COMPLEX Qty: 9 0RF Dose Instruction: INHALE 2 PUFFS BY MOUTH EVERY 6 HOURS NEEDED FOR SHORTNESS OF BREATH FOR WHEEZING Rx Instructions: INHALE 2 PUFFS BY MOUTH EVERY 6 HOURS NEEDED FOR SHORTNESS OF BREATH FOR WHEEZING glipizide 10 mg tablet 10 mg PO BID Qty: 180 0RF atorvastatin 40 mg tablet 40 mg PO DAILY pantoprazole 40 mg tablet,delayed release (DR/EC) 40 mg PO DAILY montelukast 10 mg tablet 10 mg PO DAILY metformin 1,000 mg tablet 1,000 mg PO BID Rx Instructions: 1/2 tab am 1 tab pm Discharge Orders: Discharge ED (Routine); Ordered 09/04/24 Ordered By: Concha Andersen Referrals: Alisson Huerta DO [Primary Care Provider, PERFUME COMPOUNDER] Discharge Diet: Usual diet and Low Salt Discharge Activity: Resume usual activity Patient Instructions: Dehydration (ED), Opioid Safety, Pain Management Activity Restrictions/Additional Instructions: Since you are able to take medicine/fluids by mouth without any nausea, you are able to replenish your fluid loss. This will be by adding additional 1 L of fluid over the course of each day. Hold your furosemide until Thursday. Reassess before you take it on Thursday, since it may need to be held until Thursday. Call your primary doctor tomorrow for follow-up. Continue the rest your directions with weighing daily, low-salt diet. Return to ED with ongoing, persistent weakness. Safety measures, such as when you stand slowly so you do not fall, or walk if you are lightheaded and dizzy without a walker should be in place while you have dehydration. Print Language: Swiss Coding Level of Care Code ED Cash Application Representative for Clayton Rojas
[2024-09-04 20:54] VITALS: BP 129/43; PULSE 62; O2SAT 96
--- NOTE | 2024-09-04 20:55 | PC.NURSE ---
pt requesting ice chips. MACHINE PRINTER HOSE Wittke present and okayed, pt given ice chips. Pt voiced that she just urinated prior to coming back, pt states she will try here shortly.
[2024-09-04 21:21] LABS: Basophils % 0.4 %; Eosinophils # 0.2 10^3/uL (0.0-0.8); Eosinophils % 1.8 %; Hematocrit 38.5 % (36-47); Lymphocytes # 2.8 10^3/uL (0.8-4.8); Lymphocytes % 28.1 %; Mean Corpuscular HGB Conc 28.8 g/dL (30-55); Mean Corpuscular Hemoglobin 22.1 pg (27-33); Mean Corpuscular Volume 76.5 fl (85-98); Mean Platelet Volume 11.2 fL (7.4-10.4); Monocytes # 0.9 10^3/uL (0.2-0.9); Monocytes % 8.8 %; Neutrophils # 6.03 10^3/uL (1.8-7.7); Neutrophils % 60.2 %; Nucleated Red Blood Cells % 0 %; Platelet Count 261 10^3/cmm (157-399); Red Blood Count 5.03 10^6/uL (3.85-5.65); Red Cell Distribution Width 15.8 % (12.1-15.1); White Blood Count 10.01 10^3/uL (3.29-11.43)
[2024-09-04 21:23] LABS: Bilirubin Urine Negative (Negative); Blood Urine Negative (Negative); Glucose Urine UA Negative (Normal); Ketones Urine Negative (Negative); Leukocyte Esterase Urine Negative (Negative); Nitrate Urine Negative (Negative); Protein Urine Negative (Negative); Specific Gravity, Urine 1.006 (1.005-1.030); Urine Appearance Clear (CLEAR); Urine Color Yellow (Yellow); Urobilinogen Urine 0.2 mg/dL (Negative)
[2024-09-04 21:28] LABS: Add Urine Microscopic? YES; Bacteria Urine None Seen /hpf; Hyaline Casts Urine 0-4 /lpf; RBC Urine 0-2 /hpf (0-2); Squamous Epithelial Cell Urine 0-5 /hpf (0-5); WBC Urine 0-5 /hpf (0-5)
[2024-09-04 21:33] LABS: Influenza A NEGATIVE (Negative); Influenza B NEGATIVE (Negative); Respiratory Syncytial Virus Ce NEGATIVE (Negative); SARS-CoV-2 PCR NEGATIVE (Negative)
[2024-09-04 21:42] LABS: Alanine Aminotransferase 15 U/L (0-33); Albumin Level 4.1 g/dL (3.5-5.2); Alkaline Phosphatase 98 U/L (35-105); Anion Gap 14.3 (5-19); Aspartate Amino Transferase 12 U/L (0-32); Blood Urea Nitrogen 11 mg/dL (8-23); Calcium 9.6 mg/dL (8.5-10.5); Carbon Dioxide 30 mmol/L (22-29); Chloride 104 mmol/L (98-107); Globulin 2.9 g/dL (1.3-4.6); Glucose 123 mg/dL (65-115); Osmolality Calculated 299 mOsm/kg (285-295); Potassium 4.3 mmol/L (3.5-5.1); Sodium 144 mmol/L (136-145); Total Bilirubin 0.3 mg/dL (0.15-1.2)
--- NOTE | 2024-09-04 21:58 | XRR_ITS ---
PROCEDURE INFORMATION: Exam: XR Chest Exam date and time: 09/04/2024 10:07 PM Age: 74 years old Clinical indication: Other: General weakness; Prior surgery; Surgery date: 6+ months; Surgery type: Mastectomy TECHNIQUE: Imaging protocol: Radiologic exam of the chest. Views: 1 view. COMPARISON: CR XR chest 1V portable [id number] 01/14/2024 2:20 PM FINDINGS: Lungs: Unremarkable. No consolidation. Pleural spaces: Unremarkable. No pleural effusion. No pneumothorax. Heart/Mediastinum: Unremarkable. No cardiomegaly. Bones/joints: Severe thoracic spondylosis. Soft tissues: Absent right breast shadow consistent with previous right mastectomy. XR/XR chest 1V portable [id number] IMPRESSION: No acute findings.
[2024-09-04 22:15] VITALS: BP 141/92; PULSE 64; O2SAT 94
[2024-09-04 23:07] VITALS: BP 143/69; PULSE 59; O2SAT 99
== END 2024-09-04 23:08 | disposition home or self-care (01) ==
PROVIDERS: Emergency Provider Physician Assistant; PCP Family Medicine
DX: E86.0 Dehydration (principal); Z11.52 Encounter for screening for COVID-19; Z79.82 Long term (current) use of aspirin; Z79.84 Long term (current) use of oral hypoglycemic drugs; Z72.0 Tobacco use; E13.9 Other specified diabetes mellitus without complications; Z99.81 Dependence on supplemental oxygen; I50.30 Unspecified diastolic (congestive) heart failure
CPT/HCPCS: 36415; 71045; 80053; 81001; 85025; 87637; 99284

== ENCOUNTER → 2024-09-06 14:31 | Outpatient (BNVA) | payer MEDICARE, MEDICAID, SELFPAY | PROVIDERS: PCP Family Medicine; Visit Provider Internal Medicine | DX: I35.0 Nonrheumatic aortic (valve) stenosis (principal); E78.2 Mixed hyperlipidemia; I50.9 Heart failure, unspecified; F17.200 Nicotine dependence, unspecified, uncomplicated; Z79.84 Long term (current) use of oral hypoglycemic drugs; E13.65 Other specified diabetes mellitus with hyperglycemia | CPT/HCPCS: 99214 ==

== ENCOUNTER 2024-09-07 19:27 | Emergency (ER) | payer MEDICARE, MEDICAID, SELFPAY ==
[2024-09-07 19:36] VITALS: BP 112/69; PULSE 76; RESP 17; TEMP 36.8; O2SAT 93; BMI 31.4
[2024-09-07 20:04] LABS: Basophils % 0.5 %; Eosinophils # 0.1 10^3/uL (0.0-0.8); Eosinophils % 1.5 %; Hematocrit 36.7 % (36-47); Lymphocytes # 2.5 10^3/uL (0.8-4.8); Lymphocytes % 28.6 %; Mean Corpuscular HGB Conc 29.2 g/dL (30-55); Mean Corpuscular Hemoglobin 22.1 pg (27-33); Mean Corpuscular Volume 75.8 fl (85-98); Mean Platelet Volume 11.1 fL (7.4-10.4); Monocytes # 0.8 10^3/uL (0.2-0.9); Monocytes % 8.8 %; Neutrophils # 5.29 10^3/uL (1.8-7.7); Nucleated Red Blood Cells % 0 %; Platelet Count 231 10^3/cmm (157-399); Red Blood Count 4.84 10^6/uL (3.85-5.65); Red Cell Distribution Width 15.9 % (12.1-15.1)
[2024-09-07 20:21] LABS: Alanine Aminotransferase 14 U/L (0-33); Albumin Level 3.9 g/dL (3.5-5.2); Alkaline Phosphatase 87 U/L (35-105); Anion Gap 16.8 (5-19); Aspartate Amino Transferase 13 U/L (0-32); Blood Urea Nitrogen 11 mg/dL (8-23); Calcium 8.9 mg/dL (8.5-10.5); Carbon Dioxide 25 mmol/L (22-29); Chloride 101 mmol/L (98-107); Creatinine Clr Calc Pharmacy 65.2778; Globulin 2.7 g/dL (1.3-4.6); Glucose 160 mg/dL (65-115); Osmolality Calculated 291 mOsm/kg (285-295); Potassium 3.8 mmol/L (3.5-5.1); Sodium 139 mmol/L (136-145); Total Bilirubin 0.2 mg/dL (0.15-1.2); Total Protein 6.6 g/dL (6.6-8.7)
--- NOTE | 2024-09-07 20:59 | W.ED.GENADLT ---
HPI - General Adult General: Chief complaint: General Medical Stated complaint: Really bad dry mouth Time Seen by Provider: 09/07/24 20:31 Source: patient Mode of arrival: ambulatory Limitations: no limitations History of Present Illness: 74yo female presents for evaluation of dry mouth. Patient states that she was seen in this ER. Thursday night due to dry mouth. States she was told to stop her furosemide for 2 days and start again on Thursday. States that her dry mouth did improve for those 2 days, then returned today when she took her furosemide. Patient states she believes she had a 2 pound weight gain when she weighed this morning. She states that she did see her doctor yesterday and was told that it may be related to her elevated A1c. Patient states that it went from 7-8 in the past 3 months. Patient states she has not been taking any new medications and only takes an 81 mg aspirin [id number]. She does use oxygen continuously at 2 L and does have a humidifier at home, but does not use it. She denies any other concerns at this time. Related Data Home Medications ?Medication ?Instructions ?Recorded ?Confirmed aspirin 81 mg tablet,delayed 81 mg PO DAILY 10/10/19 09/06/24 release atorvastatin 40 mg tablet 40 mg PO DAILY 01/07/24 09/06/24 montelukast 10 mg tablet 10 mg PO DAILY 01/07/24 09/06/24 pantoprazole 40 mg tablet,delayed 40 mg PO DAILY 01/07/24 02/23/24 release ipratropium 0.5 mg-albuterol 3 mg 3 ml inhalation Q6H PRN 02/23/24 09/06/24 (2.5 mg base)/3 mL nebulization soln metformin 1,000 mg tablet 1,000 mg PO BID 02/23/24 09/06/24 potassium chloride 8 mEq 8 meq PO DAILY 02/23/24 09/06/24 capsule,extended release furosemide 20 mg tablet 20 mg PO DIRECTED 09/06/24 09/06/24 Previous Rx's ?Medication ?Instructions ?Recorded tiotropium bromide 18 mcg capsule 1 cap inhalation DAILY #60 09/16/22 with inhalation device (Spiriva inhalations with HandiHaler) albuterol sulfate 90 mcg/actuation See Rx Instructions .Route 11/16/23 aerosol inhaler .COMPLEX #9 grams glipizide 10 mg tablet 10 mg PO BID #180 tabs 01/28/24 Allergies Allergy/AdvReac Type Severity Reaction Status Date / Time amoxicillin Allergy Mild ALGY-Rash Verified 09/07/24 19:39 erythromycin base Allergy Mild ALGY-Rash Verified 09/07/24 19:39 cephalexin (From Keflex) Allergy ALGY-Rash Verified 09/07/24 19:39 guaifenesin (From Mucinex) Allergy ALGY-Hives Verified 09/07/24 19:39 lisinopril Allergy Unknown Verified 09/07/24 19:39 naproxen Allergy unknown Verified 09/07/24 19:39 propoxyphene (From Darvon) Allergy Unknown Verified 09/07/24 19:39 rosuvastatin (From Crestor) Allergy unknown Verified 09/07/24 19:39 PFSH ED PFSH: Medical History CHF (congestive heart failure) Diabetes 1.5, managed as type 2 Surgical History History of tonsillectomy Hx of colonoscopy Dr. Bean at [facility] History of esophagogastroduodenoscopy (EGD) Dr. Bean at [facility] Family History Father Diabetes Mother Diabetes Congestive heart failure (CHF) Other Cancer Dementia Social History Smoking and tobacco/nicotine status: current every day tobacco/nicotine user Alcohol intake: never Substance/Drug Use: never Adopted: No Marital status: / Number of children: 2 service: No Current gender identity: Female Course Vital Signs: Vital signs: Vital Signs Temperature 98.2 F 09/07/24 19:36 Pulse Rate 76 09/07/24 19:36 Respiratory Rate 17 09/07/24 19:36 Blood Pressure 112/69 09/07/24 19:36 Pulse Oximetry 93 09/07/24 19:36 Oxygen Delivery Me thod Room Air 09/07/24 19:36 Oxygen Flow Rate 2 09/07/24 19:36 MDM - General Adult Medical Decision Making 74yo female presents for evaluation of dry mouth. Patient states that she was seen in this ER. Thursday night due to dry mouth. States she was told to stop her furosemide for 2 days and start again on Thursday. States that her dry mouth did improve for those 2 days, then returned today when she took her furosemide. Patient does have a known history of CHF, diabetes, and COPD requiring 2 L nasal cannula at all times. Patient is nontoxic in appearance. Vital signs are stable. Patient denies use of [id number] medications other than 81 mg aspirin. No significant change in CBC from 09/04/2024. No electrolyte, renal, or hepatic abnormalities noted. Glucose is noted to be elevated at 160. UA is grossly unremarkable. Discussed all findings with patient and family. Looking at patient's medications, her albuterol, DuoNeb, and Protonix can all cause dry mouth. Discussed this finding with patient and family, but she has been on these medications for some time and they are not likely to suddenly cause dry mouth. Discussed with patient use of humidifier with her continuous oxygen as well as utilizing sugar-free lozenges/hard candy and sugar-free gum to increase saliva production. Recommend she follow-up with primary care, call in the next several days with an update of symptoms and to discuss a recheck. Return precautions provided. Patient and family state understanding and have no further questions or concerns at this time. Medical Records I reviewed the patient's medical records. Lab Data I reviewed the patient's lab results. 09/07/24 19:57 09/07/24 19:57 Laboratory Results WBC 8.80 10^3/uL (3.29-11.43) 09/07/24 19:57 RBC 4.84 10^6/uL (3.85-5.65) 09/07/24 19:57 Hgb 10.70 g/dL (11.27-16.99) L 09/07/24 19:57 Hct 36.7 % (36-47) 09/07/24 19:57 MCV 75.8 fl (85-98) L 09/07/24 19:57 MCH 22.1 pg (27-33) L 09/07/24 19:57 MCHC 29.2 g/dL (30-55) L 09/07/24 19:57 RDW 15.9 % (12.1-15.1) H 09/07/24 19:57 Plt Count 231 10^3/cmm (157-399) 09/07/24 19:57 MPV 11.1 fL (7.4-10.4) H 09/07/24 19:57 Neut % (Auto) 60.0 % 09/07/24 19:57 Lymph % (Auto) 28.6 % 09/07/24 19:57 [place] % (Auto) 8.8 % 09/07/24 19:57 Eos % (Auto) 1.5 % 09/07/24 19:57 Baso % (Auto) 0.5 % 09/07/24 19:57 Neut # (Auto) 5.29 10^3/uL (1.8-7.7) 09/07/24 19:57 Lymph # (Auto) 2.5 10^3/uL (0.8-4.8) 09/07/24 19:57 [place] # (Auto) 0.8 10^3/uL (0.2-0.9) 09/07/24 19:57 Eos # (Auto) 0.1 10^3/uL (0.0-0.8) 09/07/24 19:57 Baso # (Auto) 0.0 10^3/uL (0.0-0.1) 09/07/24 19:57 Nucleated RBC % (auto) 0 % 09/07/24 19:57 Nucleated RBCs # 0.0 /100WBC 09/07/24 19:57 Sodium 139 mmol/L (136-145) 09/07/24 19:57 Potassium 3.8 mmol/L (3.5-5.1) 09/07/24 19:57 Chloride 101 mmol/L (98-107) 09/07/24 19:57 Carbon Dioxide 25 mmol/L (22-29) 09/07/24 19:57 Anion Gap 16.8 (5-19) 09/07/24 19:57 BUN 11 mg/dL (8-23) 09/07/24 19:57 Creatinine 0.8 mg/dL (0.5-0.9) 09/07/24 19:57 GFR Calculation Not Reportable 09/07/24 19:57 Glucose 160 mg/dL (65-115) H 09/07/24 19:57 Calculated Osmolality 291 mOsm/kg (285-295) 09/07/24 19:57 Calcium 8.9 mg/dL (8.5-10.5) 09/07/24 19:57 Total Bilirubin 0.2 mg/dL (0.15-1.2) 09/07/24 19:57 AST 13 U/L (0-32) 09/07/24 19:57 ALT 14 U/L (0-33) 09/07/24 19:57 Alkaline Phosphatase 87 U/L (35-105) 09/07/24 19:57 Total Protein 6.6 g/dL (6.6-8.7) 09/07/24 19:57 Albumin 3.9 g/dL (3.5-5.2) 09/07/24 19:57 Globulin 2.7 g/dL (1.3-4.6) 09/07/24 19:57 Urine Color Yellow (Yellow) 09/07/24 21:07 Urine Appearance Clear (CLEAR) 09/07/24 21:07 Urine pH 6.0 (5-7) 09/07/24 21:07 Ur Specific [place] 1.005 (1.005-1.030) 09/07/24 21:07 Urine Protein Negative (Negative) 09/07/24 21:07 Urine Glucose (UA) Negative (Normal) 09/07/24 21:07 Urine Ketones Negative (Negative) 09/07/24 21:07 Urine Blood Negative (Negative) 09/07/24 21:07 Urine Nitrate Negative (Negative) 09/07/24 21:07 Urine Bilirubin Negative (Negative) 09/07/24 21:07 Urine Urobilinogen 0.2 mg/dL (Negative) 09/07/24 21:07 Ur Leukocyte Esterase Negative (Negative) 09/07/24 21:07 Urine RBC 0-2 /hpf (0-2) 09/07/24 21:07 Urine WBC 0-5 /hpf (0-5) 09/07/24 21:07 Ur Squamous Epith Cells 6-10 /hpf (0-5) 09/07/24 21:07 Amorphous Sediment Not Reportable 09/07/24 21:07 Urine Bacteria None seen /hpf (NONE) 09/07/24 21:07 Hyaline Casts 0-4 /lpf H 09/07/24 21:07 No radiology studies performed this visit Discharge Plan Discharge Patient Disposition: Home Clinical Impression: Dry mouth, unspecified Condition: Stable Prescriptions: No Action aspirin 81 mg tablet,delayed release (DR/EC) 81 mg PO DAILY Spiriva with HandiHaler 18 mcg capsule, w/inhalation device 1 cap inhalation DAILY Qty: 60 5RF Rx Instructions: puncture 1 cap using device; one dose = 2 inhalations ipratropium-albuterol 0.5 mg-3 mg(2.5 mg base)/3 mL solution for nebulization 3 ml inhalation Q6H PRN potassium chloride 8 mEq capsule, extended release 8 meq PO DAILY furosemide 20 mg tablet 20 mg PO DIRECTED Patient Comments: Take one tab every other day albuterol sulfate 90 mcg/actuation HFA aerosol inhaler See Rx Instructions .ROUTE .COMPLEX Qty: 9 0RF Dose Instruction: INHALE 2 PUFFS BY MOUTH EVERY 6 HOURS NEEDED FOR SHORTNESS OF BREATH FOR WHEEZING Rx Instructions: INHALE 2 PUFFS BY MOUTH EVERY 6 HOURS NEEDED FOR SHORTNESS OF BREATH FOR WHEEZING glipizide 10 mg tablet 10 mg PO BID Qty: 180 0RF atorvastatin 40 mg tablet 40 mg PO DAILY pantoprazole 40 mg tablet,delayed release (DR/EC) 40 mg PO DAILY montelukast 10 mg tablet 10 mg PO DAILY metformin 1,000 mg tablet 1,000 mg PO BID Rx Instructions: 1/2 tab am 1 tab pm Discharge Orders: Discharge ED (Routine); Ordered 09/07/24 Ordered By: Reynaldo Savage Referrals: Alisson Huerta DO [Primary Care Provider, FREELANCE DESIGNER] Discharge Diet: Usual diet Discharge Activity: Resume usual activity Activity Restrictions/Additional Instructions: No acute concerning abnormalities were noted on your labs today Although multiple medications you are currently taking can cause dry mouth, you have been on these medications for some time and have not had any issues until recently Try sugar-free lozenges/candies or sugar-free gum to increase saliva production. Please ensure that they state they are sugar-free and not sugarless You will also want to use your humidifier and look into having humidified oxygen to help prevent dryness Continue with your previously prescribed medications Follow-up with primary care, call in 1 to 2 days with an update of symptoms and to discuss a recheck Return to the emergency department if any rapid worsening symptoms and as needed Print Language: Kiswahili Coding Level of Care Code ED Monorail Charger Operator for Clayton Rojas
[2024-09-07 21:29] LABS: Bilirubin Urine Negative (Negative); Blood Urine Negative (Negative); Glucose Urine UA Negative (Normal); Ketones Urine Negative (Negative); Leukocyte Esterase Urine Negative (Negative); Nitrate Urine Negative (Negative); Protein Urine Negative (Negative); Specific Gravity, Urine 1.005 (1.005-1.030); Urine Appearance Clear (CLEAR); Urine Color Yellow (Yellow); Urobilinogen Urine 0.2 mg/dL (Negative)
[2024-09-07 21:32] LABS: Add Urine Microscopic? YES; Bacteria Urine None Seen /hpf; Hyaline Casts Urine 0-4 /lpf; RBC Urine 0-2 /hpf (0-2); WBC Urine 0-5 /hpf (0-5)
[2024-09-07 22:07] VITALS: BP 149/89; PULSE 95; RESP 18; O2SAT 96
== END 2024-09-07 22:07 | disposition home or self-care (01) ==
PROVIDERS: Emergency Medicine; Emergency Provider Nurse Practitioner; PCP Family Medicine
DX: R68.2 Dry mouth, unspecified (principal); Z79.82 Long term (current) use of aspirin; Z79.84 Long term (current) use of oral hypoglycemic drugs; Z72.0 Tobacco use; E13.8 Other specified diabetes mellitus with unspecified complications; I50.9 Heart failure, unspecified
CPT/HCPCS: 36415; 80053; 81001; 85025; 99282

== ENCOUNTER 2024-09-10 16:27 | Emergency (ER) | payer MEDICARE, MEDICAID, SELFPAY ==
[2024-09-10 16:33] VITALS: BP 99/46; PULSE 74; RESP 16; TEMP 36.7; O2SAT 95; BMI 30.9
[2024-09-10 16:54] VITALS: BP 99/64; PULSE 78; RESP 18; O2SAT 98
[2024-09-10 16:56] LABS: Basophils % 0.5 %; Eosinophils # 0.1 10^3/uL (0.0-0.8); Eosinophils % 1.4 %; Hematocrit 37.1 % (36-47); Lymphocytes # 2.1 10^3/uL (0.8-4.8); Lymphocytes % 24.5 %; Mean Corpuscular HGB Conc 28.6 g/dL (30-55); Mean Corpuscular Hemoglobin 21.8 pg (27-33); Mean Corpuscular Volume 76.2 fl (85-98); Mean Platelet Volume 11.2 fL (7.4-10.4); Monocytes # 0.7 10^3/uL (0.2-0.9); Monocytes % 7.7 %; Neutrophils # 5.66 10^3/uL (1.8-7.7); Neutrophils % 65.4 %; Nucleated Red Blood Cells % 0 %; Platelet Count 277 10^3/cmm (157-399); Red Blood Count 4.87 10^6/uL (3.85-5.65); White Blood Count 8.65 10^3/uL (3.29-11.43)
--- NOTE | 2024-09-10 17:12 | ED_ITS ---
HPI - General Adult 2 General: Chief complaint: General Medical Stated complaint: feels dehydrated Time Seen by Provider: 09/10/24 16:47 History of Present Illness: Patient is a 74-year-old female with history of HTN, diastolic CHF, DM, presents to ED with dry mouth, difficulty swallowing due to her dry mouth. She does feel lightheaded, and dizzy. Her blood pressure is soft in triage and continues to be soft. She states that she has had 2.5 L of water/noncaffeinated fluid today, and 1 cup of coffee. No chest pain, no shortness of breath. Pertinent circumstances: Patient was seen here last week and her Lasix was held. Patient did return for her visit follow-up with her primary care physician, that changed her Lasix to MWF. She is quite compliant to her low-sodium diet. Associated symptoms: Deny chest pain, dyspnea, headache(s), nausea, rash, palpitations or vomiting Related Data Home Medications ?Medication ?Instructions ?Recorded ?Confirmed aspirin 81 mg tablet,delayed 81 mg PO DAILY 10/10/19 0 09/06/24 release atorvastatin 40 mg tablet 40 mg PO DAILY 01/07/2408/21 montelukast 10 mg tablet 10 mg PO DAILY 01/07/2408/21 pantoprazole 40 mg tablet,delayed 40 mg PO DAILY 01/0602/23/24 release ipratropium 0.5 mg-albuterol 3 mg 3 ml inhalation Q6H PRN 02/23/24 09/06/24 (2.5 mg base)/3 mL nebulization soln metformin 1,000 mg tablet 1,000 mg PO BID 02/23/24 potassium chloride 8 mEq 8 meq PO DAILY 02/23/2408/21 capsule,extended release furosemide 20 mg tablet 20 mg PO DIRECTED 5 09/06/24 Previous Rx's ?Medication ?Instructions ?Recorded tiotropium bromide 18 mcg capsule 1 cap inhalation YADY LY #60 09/16/22 with inhalation device (Spiriva inhalations with HandiHaler) albuterol sulfate 90 mcg/actuation See Rx Instructions .Route 11/16/23 aerosol inhaler .COMPLEX #9 grams glipizide 10 mg tablet 10 mg PO BID #180 tabs 01/27 Allergies Allergy/AdvReac Type Severity Reaction Status Date / Time amoxicillin Allergy Mild ALGY-Rash Verified 09/07/24 19:39 erythromycin base Allergy Mild ALGY-Rash Verified 09/07/24 19:39 cephalexin (From Keflex) Allergy ALGY-Rash Verified 09/07/24 19:39 guaifenesin (From Mucinex) Allergy ALGY-Hives Verified 09/07/24 19:39 lisinopril Allergy Unknown Verified 09/07/24 19:39 naproxen Allergy unknown Verified 09/07/24 19:39 propoxyphene (From Darvon) Allergy Unknown Verified 09/07/24 19:39 rosuvastatin (From Crestor) Allergy unknown Verified 09/07/24 19:39 Review of Systems 2 General: Reports: 10 or more systems reviewed and unremarkable except in HPI and below Const: Denies: fever(s), chills or change in appetite Eyes: Denies: change in vision or blurry vision ENMT: Reports: odynophagia (due to dry mouth) and dry mouth; Denies: throat pain Card: Denies: chest pain or palpitations Resp: Denies: dyspnea or productive cough GI: Denies: abdominal pain, nausea or vomiting : Denies: flank pain or difficulty voiding Musc: Denies: neck pain, back pain or extremity pain Skin/Breast: Denies: rash, pruritus or skin tenderness Neuro: Denies: headache(s) or numbness in extremities Psych: Denies: anxiety or depression Endo: Reports: polydipsia; Denies: polyuria Raji/Lymph: Denies: easy bruising or easy bleeding All/Imm: Denies: urticaria or throat swelling PFSH ED 2 PFSH: Medical History CHF (congestive heart failure) Diabetes 1.5, managed as type 2 Surgical History History of tonsillectomy Hx of colonoscopy Dr. Bean at [facility] History of esophagogastroduodenoscopy (EGD) Dr. Bean at [facility] Family History Father Diabetes Mother Diabetes Congestive heart failure (CHF) Other Cancer Dementia Social History Smoking and tobacco/nicotine status: current every day tobacco/nicotine user Alcohol intake: never Substance/Drug Use: never Adopted: No Marital status: / Number of children: 2 service: No Current gender identity: Female Physical Exam 2 Const: COMMON NORMALS: patient oriented x3 HENMT: COMMON NORMALS: normocephalic and atraumatic HEAD & SCALP: normal to inspection, normocephalic and atraumatic Lymph: LYMPHATIC: lymphadenopathy (bilat upper cervical chain) Resp: COMMON NORMALS: normal respiratory effort, No retractions and clear to auscultation bilaterally AUSCULTATION: clear to auscultation bilaterally Cardio: COMMON NORMALS: regular rate and regular rhythm RATE: regular rate RHYTHM: regular rhythm GI: COMMON NORMALS: Normal to inspection, nondistended, normoactive bowel sounds present, Soft to palpation and non-tender PALPATION: Yes Soft to palpation : COMMON NORMALS: Yes no CVA tenderness BLADDER/KIDNEY EXAM: Yes no CVA tenderness Back/Pelvis: COMMON NORMALS: no CVA tenderness Extremity: COMMON NORMALS: normal to inspection, full ROM and capillary refill normal Neuro: COMMON NORMALS: patient oriented x3 and CN's II-XII intact bilaterally Psych: COMMON NORMALS: mental status grossly normal and Normal thought process present THOUGHT PROCESS: Normal thought process present Course 2 Reevaluation(s): Reevaluation #1: Improved on re-eval Vital Signs: Vital signs: Vital Signs Temperature 98.1 F 09/10/24 16:33 Pulse Rate 78 09/10/24 18:21 Respiratory Rate 18 09/10/24 16:54 Blood Pressure 111/82 09/10/24 18:21 Pulse Oximetry 98 09/10/24 18:21 Oxygen Delivery Me thod Room Air 09/10/24 16:54 Oxygen Flow Rate 2 09/10/24 16:33 [facility] - General Adult Medical Decision Making Patient presents with a weight change from 182 yesterday to 180 today, dry mouth, and on physical exam had lymphadenopathy bilateral, posterior oropharynx. Will check for strep, and even more likely COVID, as well as replace her fluids for normal tensive. She is not lightheaded or dizzy while sitting. Blood pressure has improved and is now normotensive. Patient no longer has lightheadedness, or dizziness upon standing. Instructed patient to hold her Lasix, increase her fluid intake by 500-1000 mL. Patient states understanding. She will hold her Lasix until she follows up with her primary care physician, then further decision making as per primary care. Lab Data 09/10/24 16:50 09/10/24 16:50 Laboratory Results WBC 8.65 10^3/uL (3.29-11.43) 09/10/24 16:50 RBC 4.87 10^6/uL (3.85-5.65) 09/10/24 16:50 Hgb 10.60 g/dL (11.27-16.99) L 09/10/24 16:50 Hct 37.1 % (36-47) 09/10/24 16:50 MCV 76.2 fl (85-98) L 09/10/24 16:50 MCH 21.8 pg (27-33) L 09/10/24 16:50 MCHC 28.6 g/dL (30-55) L 09/10/24 16:50 RDW 16.0 % (12.1-15.1) H 09/10/24 16:50 Plt Count 277 10^3/cmm (157-399) 09/10/24 16:50 MPV 11.2 fL (7.4-10.4) H 09/10/24 16:50 Neut % (Auto) 65.4 % 09/10/24 16:50 Lymph % (Auto) 24.5 % 09/10/24 16:50 [place] % (Auto) 7.7 % 09/10/24 16:50 Eos % (Auto) 1.4 % 09/10/24 16:50 Baso % (Auto) 0.5 % 09/10/24 16:50 Neut # (Auto) 5.66 10^3/uL (1.8-7.7) 09/10/24 16:50 Lymph # (Auto) 2.1 10^3/uL (0.8-4.8) 09/10/24 16:50 [place] # (Auto) 0.7 10^3/uL (0.2-0.9) 09/10/24 16:50 Eos # (Auto) 0.1 10^3/uL (0.0-0.8) 09/10/24 16:50 Baso # (Auto) 0.0 10^3/uL (0.0-0.1) 09/10/24 16:50 Nucleated RBC % (auto) 0 % 09/10/24 16:50 Nucleated RBCs # 0.0 /100WBC 09/10/24 16:50 Sodium 137 mmol/L (136-145) 09/10/24 16:50 Potassium 4.0 mmol/L (3.5-5.1) 09/10/24 16:50 Chloride 98 mmol/L (98-107) 09/10/24 16:50 Carbon Dioxide 27 mmol/L (22-29) 09/10/24 16:50 Anion Gap 16.0 (5-19) 09/10/24 16:50 BUN 12 mg/dL (8-23) 09/10/24 16:50 Creatinine 0.8 mg/dL (0.5-0.9) 09/10/24 16:50 GFR Calculation Not Reportable 09/10/24 16:50 Glucose 189 mg/dL (65-115) H 09/10/24 16:50 Calculated Osmolality 289 mOsm/kg (285-295) 09/10/24 16:50 Calcium 9.4 mg/dL (8.5-10.5) 09/10/24 16:50 Total Bilirubin 0.3 mg/dL (0.15-1.2) 09/10/24 16:50 AST 17 U/L (0-32) 09/10/24 16:50 ALT 19 U/L (0-33) 09/10/24 16:50 Alkaline Phosphatase 100 U/L (35-105) 09/10/24 16:50 Total Protein 6.9 g/dL (6.6-8.7) 09/10/24 16:50 Albumin 4.1 g/dL (3.5-5.2) 09/10/24 16:50 Globulin 2.8 g/dL (1.3-4.6) 09/10/24 16:50 Influenza A (PCR) Negative (Negative) 09/10/24 17:16 Influenza Type B (PCR) Negative (Negative) 09/10/24 17:16 RSV (PCR) Negative (Negative) 09/10/24 17:16 SARS-CoV-2 (PCR) Negative (Negative) 09/10/24 17:16 Group A Strep Rapid Negative (Negative) 09/10/24 17:16 No radiology studies performed this visit Discharge Plan Discharge Patient Disposition: Home Clinical Impression: Acute dehydration Condition: Stable Prescriptions: No Action aspirin 81 mg tablet,delayed release (DR/EC) 81 mg PO DAILY Spiriva with HandiHaler 18 mcg capsule, w/inhalation device 1 cap inhalation DAILY Qty: 60 5RF Rx Instructions: puncture 1 cap using device; one dose = 2 inhalations ipratropium-albuterol 0.5 mg-3 mg(2.5 mg base)/3 mL solution for nebulization 3 ml inhalation Q6H PRN potassium chloride 8 mEq capsule, extended release 8 meq PO DAILY furosemide 20 mg tablet 20 mg PO DIRECTED Patient Comments: Take one tab every other day albuterol sulfate 90 mcg/actuation HFA aerosol inhaler See Rx Instructions .ROUTE .COMPLEX Qty: 9 0RF Dose Instruction: INHALE 2 PUFFS BY MOUTH EVERY 6 HOURS NEEDED FOR SHORTNESS OF BREATH FOR WHEEZING Rx Instructions: INHALE 2 PUFFS BY MOUTH EVERY 6 HOURS NEEDED FOR SHORTNESS OF BREATH FOR WHEEZING glipizide 10 mg tablet 10 mg PO BID Qty: 180 0RF atorvastatin 40 mg tablet 40 mg PO DAILY pantoprazole 40 mg tablet,delayed release (DR/EC) 40 mg PO DAILY montelukast 10 mg tablet 10 mg PO DAILY metformin 1,000 mg tablet 1,000 mg PO BID Rx Instructions: 1/2 tab am 1 tab pm Discharge Orders: Discharge ED (Routine); Ordered 09/10/24 Ordered By: Concha Andersen Referrals: Alisson Huerta DO [Primary Care Provider, W[employer] M[employer]ING WHEEL OPERATOR] Patient Instructions: Dehydration (ED) Activity Restrictions/Additional Instructions: Hold Lasix until you follow-up with your doctor. Your blood pressure was too low today to continue your Lasix. Return to ED for lightheadedness, dizziness, or additional symptoms concerning for dehydration Increase fluid intake by 500-1000 mL daily. Continue your daily weights and low-salt diet. Print Language: Italian Coding Level of Care Code ED Piecer Up for Clayton Rojas
[2024-09-10] MEDS: sodium chloride 0.9% 500 ML IV (17:18)
[2024-09-10 17:20] LABS: Alanine Aminotransferase 19 U/L (0-33); Albumin Level 4.1 g/dL (3.5-5.2); Alkaline Phosphatase 100 U/L (35-105); Aspartate Amino Transferase 17 U/L (0-32); Blood Urea Nitrogen 12 mg/dL (8-23); Calcium 9.4 mg/dL (8.5-10.5); Carbon Dioxide 27 mmol/L (22-29); Chloride 98 mmol/L (98-107); Creatinine Clr Calc Pharmacy 64.7399; Globulin 2.8 g/dL (1.3-4.6); Glucose 189 mg/dL (65-115); Osmolality Calculated 289 mOsm/kg (285-295); Sodium 137 mmol/L (136-145); Total Bilirubin 0.3 mg/dL (0.15-1.2); Total Protein 6.9 g/dL (6.6-8.7)
[2024-09-10 17:27] LABS: Rapid Strep A Test Negative (Negative)
[2024-09-10 17:56] LABS: Influenza A NEGATIVE (Negative); Influenza B NEGATIVE (Negative); Respiratory Syncytial Virus Ce NEGATIVE (Negative); SARS-CoV-2 PCR NEGATIVE (Negative)
[2024-09-10 18:21] VITALS: BP 111/82; PULSE 78; O2SAT 98
== END 2024-09-10 18:22 | disposition home or self-care (01) ==
PROVIDERS: Family Medicine; Emergency Provider Physician Assistant; PCP Family Medicine
DX: E86.0 Dehydration (principal); Z79.82 Long term (current) use of aspirin; Z79.84 Long term (current) use of oral hypoglycemic drugs; Z11.52 Encounter for screening for COVID-19; I50.9 Heart failure, unspecified; E13.8 Other specified diabetes mellitus with unspecified complications
CPT/HCPCS: 36415; 80053; 85025; 87081; 87637; 87880; 99283; J7040

== ENCOUNTER 2024-09-12 16:43 | Emergency (ER) | payer MEDICARE, MEDICAID, SELFPAY ==
[2024-09-12 16:47] VITALS: BP 130/85; PULSE 75; RESP 18; TEMP 36.4; O2SAT 96; BMI 30.9
--- NOTE | 2024-09-12 18:05 | W.ED.GENADLT ---
HPI - General Adult General: Chief complaint: General Medical Stated complaint: sore throat Time Seen by Provider: 09/12/24 17:23 History of Present Illness: Patient is 74-year-old female that presents to ED with difficulty swallowing. She was seen here on 09/11 and 09/07. She had strep, COVID that are negative. She is handling her own secretions. No fevers. She has the feeling of her sensation that she has difficulty swallowing and even more so on her left side. She has to tuck her chin to swallow at times. She feels like something gets caught in her throat, and if she has tenacious secretions they are more difficult. Associated symptoms: Deny chest pain, dyspnea, headache(s), nausea, rash, palpitations or vomiting Related Data Home Medications ?Medication ?Instructions ?Recorded ?Confirmed aspirin 81 mg tablet,delayed 81 mg PO DAILY 10/10/19 09/06/24 release atorvastatin 40 mg tablet 40 mg PO DAILY 01/07/24 09/06/24 montelukast 10 mg tablet 10 mg PO DAILY 01/07/24 09/06/24 pantoprazole 40 mg tablet,delayed 40 mg PO DAILY 01/07/24 02/23/24 release ipratropium 0.5 mg-albuterol 3 mg 3 ml inhalation Q6H PRN 02/23/24 09/06/24 (2.5 mg base)/3 mL nebulization soln metformin 1,000 mg tablet 1,000 mg PO BID 02/23/24 09/06/24 potassium chloride 8 mEq 8 meq PO DAILY 02/23/24 09/06/24 capsule,extended release furosemide 20 mg tablet 20 mg PO DIRECTED 09/06/24 09/06/24 Previous Rx's ?Medication ?Instructions ?Recorded tiotropium bromide 18 mcg capsule 1 cap inhalation DAILY #60 09/16/22 with inhalation device (Spiriva inhalations with HandiHaler) albuterol sulfate 90 mcg/actuation See Rx Instructions .Route 11/16/23 aerosol inhaler .COMPLEX #9 grams glipizide 10 mg tablet 10 mg PO BID #180 tabs 01/28/24 Allergies Allergy/AdvReac Type Severity Reaction Status Date / Time amoxicillin Allergy Mild ALGY-Rash Verified 09/12/24 16:51 erythromycin base Allergy Mild ALGY-Rash Verified 09/12/24 16:51 cephalexin (From Keflex) Allergy ALGY-Rash Verified 09/12/24 16:51 guaifenesin (From Mucinex) Allergy ALGY-Hives Verified 09/12/24 16:51 lisinopril Allergy Unknown Verified 09/12/24 16:51 naproxen Allergy unknown Verified 09/12/24 16:51 propoxyphene (From Darvon) Allergy Unknown Verified 09/12/24 16:51 rosuvastatin (From Crestor) Allergy unknown Verified 09/12/24 16:51 Review of Systems General: Reports: 10 or more systems reviewed and unremarkable except in HPI and below Const: Denies: fever(s) or chills Eyes: Denies: change in vision or blurry vision ENMT: Reports: odynophagia; Denies: throat pain or mouth pain Card: Denies: chest pain or palpitations Resp: Denies: dyspnea or productive cough GI: Denies: abdominal pain, nausea or vomiting : Denies: flank pain or difficulty voiding Musc: Denies: neck pain or back pain Skin/Breast: Denies: rash or pruritus Neuro: Denies: headache(s) Psych: Reports: anxiety; Denies: depression PFSH ED PFSH: Medical History CHF (congestive heart failure) Diabetes 1.5, managed as type 2 Surgical History History of tonsillectomy Hx of colonoscopy Dr. Bean at [facility] History of esophagogastroduodenoscopy (EGD) Dr. Bean at [facility] Family History Father Diabetes Mother Diabetes Congestive heart failure (CHF) Other Cancer Dementia Social History Smoking and tobacco/nicotine status: current every day tobacco/nicotine user Alcohol intake: never Substance/Drug Use: never Adopted: No Marital status: / Number of children: 2 service: No Current gender identity: Female Physical Exam Const: COMMON NORMALS: patient oriented x3 HENMT: COMMON NORMALS: normocephalic, atraumatic and hearing grossly normal bilaterally HEAD & SCALP: normocephalic and atraumatic FACE & SINUS: normal facial exam and sinuses nontender Chest: COMMONS NORMALS: normal inspection of the chest and normal palpation of entire chest wall Resp: COMMON NORMALS: normal respiratory effort and No retractions Cardio: COMMON NORMALS: regular rate and regular rhythm RATE: regular rate RHYTHM: regular rhythm GI: COMMON NORMALS: Normal to inspection, nondistended, normoactive bowel sounds present, Soft to palpation and non-tender PALPATION: Yes Soft to palpation : COMMON NORMALS: Yes no CVA tenderness BLADDER/KIDNEY EXAM: Yes no CVA tenderness Back/Pelvis: COMMON NORMALS: no CVA tenderness and thoracic and lumbar spine normal to inspection Extremity: COMMON NORMALS: normal to inspection and full ROM Neuro: COMMON NORMALS: patient oriented x3 and CN's II-XII intact bilaterally Skin: COMMON NORMALS: no rashes or lesions noted and no wounds GENERAL SKIN EXAM: no rashes or lesions noted Course Vital Signs: Vital signs: Vital Signs Temperature 97.6 F 09/12/24 16:47 Pulse Rate 71 09/12/24 18:23 Respiratory Rate 18 09/12/24 16:47 Blood Pressure 111/66 09/12/24 18:23 Pulse Oximetry 95 09/12/24 18:23 Oxygen Delivery Me thod Nasal Cannula 09/12/24 16:47 Oxygen Flow Rate 2 09/12/24 16:47 MDM - General Adult Medical Decision Making I checked with radiology regarding a upper GI/barium swallow with fluoroscopy, this is not available through the ED since radiology has to be present and has to be scheduled on outpatient basis. Patient is handling her secretions. I asked patient to obtain lemon drops to help with secretions and to be cautious with lemon drops so she does not choke on them, and to return to her primary care physician that we will need to schedule this on an outpatient basis. Patient states understanding and has appointment for AM. She has apprehension regarding going to sleep tonight with her concerns. I have also reassured her that she is welcome to return to ED if she has issues with handling her secretions to further evaluate. No radiology studies performed this visit Discharge Plan Discharge Patient Disposition: Home Clinical Impression: Dysphagia, pharyngoesophageal phase Condition: Stable Prescriptions: No Action aspirin 81 mg tablet,delayed release (DR/EC) 81 mg PO DAILY Spiriva with HandiHaler 18 mcg capsule, w/inhalation device 1 cap inhalation DAILY Qty: 60 5RF Rx Instructions: puncture 1 cap using device; one dose = 2 inhalations ipratropium-albuterol 0.5 mg-3 mg(2.5 mg base)/3 mL solution for nebulization 3 ml inhalation Q6H PRN potassium chloride 8 mEq capsule, extended release 8 meq PO DAILY furosemide 20 mg tablet 20 mg PO DIRECTED Patient Comments: Take one tab every other day albuterol sulfate 90 mcg/actuation HFA aerosol inhaler See Rx Instructions .ROUTE .COMPLEX Qty: 9 0RF Dose Instruction: INHALE 2 PUFFS BY MOUTH EVERY 6 HOURS NEEDED FOR SHORTNESS OF BREATH FOR WHEEZING Rx Instructions: INHALE 2 PUFFS BY MOUTH EVERY 6 HOURS NEEDED FOR SHORTNESS OF BREATH FOR WHEEZING glipizide 10 mg tablet 10 mg PO BID Qty: 180 0RF atorvastatin 40 mg tablet 40 mg PO DAILY pantoprazole 40 mg tablet,delayed release (DR/EC) 40 mg PO DAILY montelukast 10 mg tablet 10 mg PO DAILY metformin 1,000 mg tablet 1,000 mg PO BID Rx Instructions: 1/2 tab am 1 tab pm Discharge Orders: Discharge ED (Routine); Ordered 09/12/24 Ordered By: Concha Andersen Referrals: Alisson Huerta DO [Primary Care Provider, HIGH VOLTAGE ELECTRICIAN] Patient Instructions: Dysphagia (ED) Activity Restrictions/Additional Instructions: Follow-up your doctor tomorrow as scheduled Feel free to return to ED if you have issues handling your secretions or have apprehension sleeping tonight. Print Language: Beninese Coding Level of Care Code ED Blade Sharpener for Clayton Rojas
[2024-09-12 18:23] VITALS: BP 111/66; PULSE 71; O2SAT 95
== END 2024-09-12 18:24 | disposition home or self-care (01) ==
PROVIDERS: Emergency Provider Physician Assistant; PCP Family Medicine
DX: R13.14 Dysphagia, pharyngoesophageal phase (principal); Z79.82 Long term (current) use of aspirin; Z79.84 Long term (current) use of oral hypoglycemic drugs; Z72.0 Tobacco use; I50.9 Heart failure, unspecified; E13.8 Other specified diabetes mellitus with unspecified complications
CPT/HCPCS: 99283

== ENCOUNTER 2024-09-19 23:32 | Emergency (ER) | payer MEDICARE, MEDICAID, SELFPAY ==
--- OUTSIDE RECORDS SUMMARY | 2024-09-19 23:40 | XMS_ITS | Patient Health Record ---
Author Organization [facility] Address [address] [place] [address] Care Team Providers Care Broom Handle Dipper Name Role Phone Herb Moralesa Primary Care Provider [phone] Allergies Allergen (clinical drug ingredient) Drug/Non Drug Allergy documented on EMR Reaction Allergy Type Onset Date Status amoxicillin Amoxicillin Unknown Drug Allergy Act yogi rosuvastatin Crestor Unknown Drug Allergy Acti ve Darvon Unknown Drug Allergy Active erythromycin Erythromycin Unknown Drug Allergy A ctive Lisinopril Unknown Drug Allergy Active guaifenesin Mucinex rash Drug Allergy Activ e naproxen Naproxen Unknown Drug Allergy Active Reason For Referral No Information Medications Medication SIG (Take, Route, Frequency, Duration) Notes Start Date End Date Status Aspirin 81 MG 2 tablets Orally Once a day for 30 day(s) Active Atorvastatin Calcium 40 MG 1 tablet Orally once daily at hs for 90 days Take along with CoQ10 100mg daily Active Indapamide 1.25 MG TAKE 1 TABLET BY MOUTH ONCE DAILY IN THE MORNING for 30 Active metFORMIN HCl 1000 MG Take 1/2 tablet by mouth in AM 1 tab by mouth in the PM Orally bid for 90 days Active Pantoprazole Sodium 40 MG 1 tablet Orally Once a day for 90 days Active glipiZIDE ER 10 MG 1 tablet with food Orally twice daily for 90 days Dose increase. Active Montelukast Sodium 10 MG 1 tablet Orally Once a day for 90 days Active Ondansetron HCl 4 MG 1 tablet Orally every 8 hours for 14 days 08/27/2021 Active Albuterol Sulfate HFA 108 (90 Base) MCG/ACT 2 puff as needed Inhalation every 4 hrs for 30 days Active Social History Tobacco Use: Social History Observation Description Date Details (start date - stop date) Current Smoker NA - NA xTobacco Use/Smoking Question Answer Notes Are you a current smoker How often do you smoke cigarettes? every day How many cigarettes a day do you smoke? 5 or les s How soon after you wake up do you smoke your fir st cigarette? 6-30 minutes Are you interested in quitting? Ready to quit Problems Problem Type SNOMED Code ICD Code Onset Dates Problem Status W/U Status Risk Notes Problem 56737443 Age-related osteoporosis without current pathological fracture (M81.0) Active confirmed Problem 68889855 Essential hypertension (I10) Active confirmed Problem 849551592 Type 2 diabetes mellitus without complication, without long-term current use of insulin (E11.9) Active confirmed Problem 60960338 Chronic obstruct yogi pulmonary disease, unspecified COPD type (J44.9) Active confirmed Problem 89585353 Hypercholesterol emia (E78.00) Active confirmed Problem 015333587 Seasonal allergi es (J30.2) Active confirmed Problem 742704394 Abnormal laborat ory test (R89.9) Active confirmed Problem 529075536 Fatty liver (K76.0) Active confirmed Problem 685472638 Vaginal burning (N94.9) Active confirmed Problem 108869147 Gastroesophageal reflux disease with esophagitis, unspecified whether hemorrhage (K21.00) Active confirmed Problem 1163900 Benign essential hypertension (I10) 2018 Active confirmed [id number]-98 [id number]- Problem Anxiety (91311165) Anxiety (300.02) 11/10 Active confirmed [id number]- Problem Type II diabetes mellitus without complication (242651714) Type 2 diabetes (250.00) 2016 Active confirmed [id number]- Problem Lichen planus (2230062) Lichen planus (697.0) 2016 Problem resolved confirmed [id number]- Problem Fever (304017575) Fever, unspeci fied (780.60) 2017 Problem resolved confirmed [id number]-98 [id number]- Problem Shortness of breath (906850729) Shortness of breath (786.05) 2016 Problem resolved confirmed [id number]-98 [id number]- Problem Vertigo (313461449) Vertigo (780.4) 07/02 Problem resolved confirmed [id number]-98 [id number]- Problem Dizziness (079403883) Dizziness (780.4) 2017 Problem resolved confirmed [id number]- Problem Low back pain (368550832) Low back pain (724.2) 2016 Problem resolved confirmed [id number]-98 [id number]- Problem Vitamin B12 deficiency (non anemic) (37671361) B12 deficiency (266.2) 2017 Problem resolved confirmed [facility]-98 [id number]- Problem Lumbosacral spondylosis without myelopathy (90730892) 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 Problem resolved confirmed [id number]-98 [id number]- Problem Secondary polycythemia (93648013) Secondary polycythemia (289.0) 2017 Problem resolved confirmed [id number]-98 [id number]- Problem Shortness of breath (070325803) Shortness of breath (786.09) 2017 Problem resolved confirmed [id number]-98 [id number]- Problem Mitral and aortic stenosis (915311520) Aortic stenosis (396.0) 2016 Problem resolved confirmed [id number]-98 [id number]- Problem Disorder of hematopoietic system (41341590) Other abnormal findings on blood examination (790.99) 2017 Problem resolved confirmed [id number]-98 [id number]- Problem Congestive heart failure (55228612) Congestive heart failure (428.0) 2016 Problem resolved confirmed [id number]-98 [id number]- Problem Insomnia (378720401) Insomnia (307.41) 2016 Problem resolved confirmed [facility]-98 [id number]- Problem Pain in limb (67731804) Leg pain (729.5) 2018 Problem resolved confirmed [facility]-98 [id number]- Problem Tobacco user (437445197) Tobacco abuse affecting health (305.1) 2017 Problem resolved confirmed [facility]-98 [id number]- Problem Electrocardiogram abnormal (131093978) Abnormal EKG (794.31) 2017 Problem resolved confirmed [facility]-98 [id number]- Problem Acquired renal cyst (448786552) Acquired renal cyst (593.2) 2018 Problem resolved confirmed [facility]-98 [id number]- Problem Emphysema (02367347) Emphysema, other (492.8) 2018 Problem resolved confirmed [facility]-98 [id number]- Problem Impacted cerumen (30904946) External cerumen impaction (380.4) 2018 Problem resolved confirmed [facility]-98 [id number]- Problem Chronic uterine inflammatory disease (342435646) Chronic inflammatory disease of uterus (615.1) 2017 Problem resolved confirmed [facility]-98 5911- Problem Screening mammography (62812686) Screening mammogram - other (V76.12) 2017 Problem resolved confirmed [facility]-98 5911- Plan Of Treatment No Information Insurance Providers Payer Name Payer Address Payer Phone Subscriber Number Group Number Insured Name Patient Relationship to Insured Coverage Start Date Coverage End Date [facility] [employer] [address] [address] [place] [address] [id number] Maranda Garcia Self - patient is the insured Medical (General) History Medical History History ICD Code Hypertension Hypercholesterolemia Congestive heart failure Aortic stenosis GERD Type 2 diabetes Emphysema Acquired renal cyst Lumbar spondylarthritis Eczema Hx of breast cancer Generalized anxiety disorder Hypotension Surgical History Surgery Date(Month/Year) Tonsillectomy Appendectomy Masectomy; right Shoulder surgery; left Knee surgery; bilateral Tubal ligation Cholecystectomy Hospitalization History Reason Date(Month/Year) Child Breast cancer Tubal ligation Cholecystectomy
[2024-09-19 23:42] VITALS: BP 127/85; PULSE 69; RESP 16; TEMP 36.6; O2SAT 98; BMI 30.9
--- NOTE | 2024-09-20 00:15 | W.ED.RECABL ---
HPI - Recheck/Abnormal Lab/Rx General: Chief Complaint: Recheck/Abnormal Lab/Rx Stated Complaint: Possible Dehydration\ABD\Sugar Time Seen by Provider: 09/19/24 23:42 History of Present Illness: Patient is a 74-year-old female with history of DM, HTN, COPD, presents to ED with ongoing complaints of swallowing. She did follow-up with her primary care physician. Her primary care physician is sending her to ENT, and the appointment is on 10/17. Tonight, she has had ongoing issues with swallowing, and eating soups. She feels like she has had as much water as she can safely swallow, however she feels dehydrated. Patient also took her glipizide tonight. She checked her blood glucose before this and it was 77. She is concerned her blood glucose will drop as it did last night to 62. Patient consumed applesauce to increase blood glucose. Related Data Home Medications ?Medication ?Instructions ?Recorded ?Confirmed aspirin 81 mg tablet,delayed 81 mg PO DAILY 10/10/19 09/06/24 release atorvastatin 40 mg tablet 40 mg PO DAILY 01/07/24 09/06/24 montelukast 10 mg tablet 10 mg PO DAILY 01/07/24 09/06/24 pantoprazole 40 mg tablet,delayed 40 mg PO DAILY 01/07/24 02/23/24 release ipratropium 0.5 mg-albuterol 3 mg 3 ml inhalation Q6H PRN 02/23/24 09/06/24 (2.5 mg base)/3 mL nebulization soln metformin 1,000 mg tablet 1,000 mg PO BID 02/23/24 09/06/24 potassium chloride 8 mEq 8 meq PO DAILY 02/23/24 09/06/24 capsule,extended release furosemide 20 mg tablet 20 mg PO DIRECTED 09/06/24 09/06/24 Previous Rx's ?Medication ?Instructions ?Recorded tiotropium bromide 18 mcg capsule 1 cap inhalation DAILY #60 09/16/22 with inhalation device (Spiriva inhalations with HandiHaler) albuterol sulfate 90 mcg/actuation See Rx Instructions .Route 11/16/23 aerosol inhaler .COMPLEX #9 grams glipizide 10 mg tablet 10 mg PO BID #180 tabs 01/28/24 Allergies Allergy/AdvReac Type Severity Reaction Status Date / Time amoxicillin Allergy Mild ALGY-Rash Verified 09/19/24 23:51 erythromycin base Allergy Mild ALGY-Rash Verified 09/19/24 23:51 cephalexin (From Keflex) Allergy ALGY-Rash Verified 09/19/24 23:51 guaifenesin (From Mucinex) Allergy ALGY-Hives Verified 09/19/24 23:51 lisinopril Allergy Unknown Verified 09/19/24 23:51 naproxen Allergy unknown Verified 09/19/24 23:51 propoxyphene (From Darvon) Allergy Unknown Verified 09/19/24 23:51 rosuvastatin (From Crestor) Allergy unknown Verified 09/19/24 23:51 Review of Systems General: Reports: 10 or more systems reviewed and unremarkable except in HPI and below Const: Denies: fever(s) or chills Eyes: Denies: change in vision or blurry vision ENMT: Denies: throat pain or mouth pain Card: Denies: chest pain or palpitations Resp: Denies: dyspnea or non-productive cough GI: Reports: dysphagia; Denies: abdominal pain, nausea, vomiting or change in bowel habits : Denies: flank pain, difficulty voiding or dysuria Skin/Breast: Denies: rash or pruritus Neuro: Denies: headache(s) or numbness in extremities PFSH ED PFSH: Medical History CHF (congestive heart failure) Diabetes 1.5, managed as type 2 Surgical History History of tonsillectomy Hx of colonoscopy Dr. Bean at [facility] History of esophagogastroduodenoscopy (EGD) Dr. Bean at [facility] Family History Father Diabetes Mother Diabetes Congestive heart failure (CHF) Other Cancer Dementia Social History Smoking and tobacco/nicotine status: current every day tobacco/nicotine user Alcohol intake: never Substance/Drug Use: never Adopted: No Marital status: / Number of children: 2 service: No Current gender identity: Female Physical Exam Const: COMMON NORMALS: patient oriented x3 HENMT: COMMON NORMALS: normocephalic and atraumatic HEAD & SCALP: normocephalic and atraumatic MOUTH: moist mucous membranes abnormal Details: cracked; no drooling Neck/C-Spine: COMMON NORMALS: full ROM, no lymphadenopathy and No carotid bruits GENERAL: Yes other (No stridor) Lymph: LYMPHATIC: no lymphadenopathy noted Chest: COMMONS NORMALS: normal inspection of the chest and normal palpation of entire chest wall Resp: COMMON NORMALS: normal respiratory effort and clear to auscultation bilaterally AUSCULTATION: clear to auscultation bilaterally Cardio: COMMON NORMALS: regular rate and regular rhythm RATE: regular rate RHYTHM: regular rhythm GI: COMMON NORMALS: Normal to inspection, nondistended, normoactive bowel sounds present, Soft to palpation and non-tender PALPATION: Yes Soft to palpation : COMMON NORMALS: Yes no CVA tenderness BLADDER/KIDNEY EXAM: Yes no CVA tenderness Back/Pelvis: COMMON NORMALS: no CVA tenderness Extremity: COMMON NORMALS: normal to inspection, full ROM and capillary refill normal Neuro: COMMON NORMALS: patient oriented x3 and CN's II-XII intact bilaterally Psych: COMMON NORMALS: mental status grossly normal and Normal thought process present THOUGHT PROCESS: Normal thought process present Course Vital Signs: Vital signs: Vital Signs Temperature 97.9 F 09/19/24 23:42 Pulse Rate 69 09/20/24 01:00 Respiratory Rate 16 09/20/24 01:00 Blood Pressure 122/66 09/20/24 00:27 Pulse Oximetry 98 09/20/24 01:00 Oxygen Delivery Me thod Nasal Cannula 09/19/24 23:42 Oxygen Flow Rate 2 09/19/24 23:42 MDM - Recheck/Abnormal Lab/Rx Medical Decision Making Patient is 74-year-old female with ongoing issues with dysphagia. She has followed up with her primary care physician. She is currently awaiting referral to ENT. She is on a full liquid diet. She is now holding her Lasix due to hypovolemia. Her oral mucosa is dry. Routine labs show a glucose at 124, which I believe was after her D5 was started. In any event she has had 1/2 L D5, she feels like she is improved, and will call her doctor today for follow-up. Lab Data 09/20/24 00:21 07/01/25 00:21 Laboratory Results WBC 7.16 10^3/uL (3.29-11.43) 09/20/24 00:21 RBC 4.81 10^6/uL (3.85-5.65) 09/20/24 00:21 Hgb 10.50 g/dL (11.27-16.99) L 09/20/24 00:21 Hct 37.0 % (36-47) 09/20/24 00:21 MCV 76.9 fl (85-98) L 09/20/24 00:21 MCH 21.8 pg (27-33) L 09/20/24 00: MCHC 28.4 g/dL (30-55) L 09/20/24 00:21 RDW 15.9 % (12.1-15.1) H 09/20/24 00:21 Plt Count 254 10^3/cmm (157-399) 09/20/24 00: MPV 10.8 fL (7.4-10.4) H 09/20/24 00:21 Neut % (Auto) 63.4 % 09/20/24 00: Lymph % (Auto) 24.9 % 09/20/24 00:21 Ray % (Auto) 8.7 % 09/20/24 00:21 Eos % (Auto) 2.1 % 09/20/24 00:21 Baso % (Auto) 0.6 % 09/20/24 00: Neut # (Auto) 4.55 10^3/uL (1.8-7.7) 09/20/24 00: Lymph # (Auto) 1.8 10^3/uL (0.8-4.8) 09/20/24 00:21 Ray # (Auto) 0.6 10^3/uL (0.2-0.9) 09/20/24 00:21 Eos # (Auto) 0.2 10^3/uL (0.0-0.8) 09/20/24 00:21 Baso # (Auto) 0.0 10^3/uL (0.0-0.1) 09/20/24 00:21 Nucleated RBC % (auto) 0 % 09/20/24 00: Nucleated RBCs # 0.0 /100WBC 09/20/24 00:21 Sodium 143 mmol/L (136-145) 09/20/24 00:21 Potassium 3.8 mmol/L (3.5-5.1) 09/20/24 00:21 Chloride 104 mmol/L (98-107) 09/20/24 00:21 Carbon Dioxide 27 mmol/L (22-29) 09/20/24 00:21 Anion Gap 15.8 (5-19) 09/20/24 00:21 BUN 7 mg/dL (8-23) L 09/20/24 00:21 Creatinine 0.8 mg/dL (0.5-0.9) 09/20/24 00:21 GFR Calculation Not Reportable 09/20/24 00:21 Glucose 124 mg/dL (65-115) H 09/20/24 00:21 Calculated Osmolality 295 mOsm/kg (285-295) 09/20/24 00:21 Calcium 9.6 mg/dL (8.5-10.5) 09/20/24 00:21 Total Bilirubin 0.3 mg/dL (0.15-1.2) 09/20/24 00:21 AST 14 U/L (0-32) 09/20/24 00:21 ALT 13 U/L (0-33) 09/20/24 00:21 Alkaline Phosphatase 89 U/L (35-105) 09/20/24 00:21 Total Protein 6.6 g/dL (6.6-8.7) 09/20/24 00:21 Albumin 3.9 g/dL (3.5-5.2) 09/20/24 00:21 Globulin 2.7 g/dL (1.3-4.6) 09/20/24 00:21 No radiology studies performed this visit Discharge Plan Discharge Patient Disposition: Home Clinical Impression: Dehydration, Hypoglycemia Dysphagia Qualifiers: Dysphagia type: unspecified Qualified Code(s): R13.10 - Dysphagia, unspecified Condition: Stable Prescriptions: No Action aspirin 81 mg tablet,delayed release (DR/EC) 81 mg PO DAILY Spiriva with HandiHaler 18 mcg capsule, w/inhalation device 1 cap inhalation DAILY Qty: 60 5RF Rx Instructions: puncture 1 cap using device; one dose = 2 inhalations ipratropium-albuterol 0.5 mg-3 mg(2.5 mg base)/3 mL solution for nebulization 3 ml inhalation Q6H PRN potassium chloride 8 mEq capsule, extended release 8 meq PO DAILY furosemide 20 mg tablet 20 mg PO DIRECTED Patient Comments: Take one tab every other day albuterol sulfate 90 mcg/actuation HFA aerosol inhaler See Rx Instructions .ROUTE .COMPLEX Qty: 9 0RF Dose Instruction: INHALE 2 PUFFS BY MOUTH EVERY 6 HOURS NEEDED FOR SHORTNESS OF BREATH FOR WHEEZING Rx Instructions: INHALE 2 PUFFS BY MOUTH EVERY 6 HOURS NEEDED FOR SHORTNESS OF BREATH FOR WHEEZING glipizide 10 mg tablet 10 mg PO BID Qty: 180 0RF atorvastatin 40 mg tablet 40 mg PO DAILY pantoprazole 40 mg tablet,delayed release (DR/EC) 40 mg PO DAILY montelukast 10 mg tablet 10 mg PO DAILY metformin 1,000 mg tablet 1,000 mg PO BID Rx Instructions: 1/2 tab am 1 tab pm Discharge Orders: Discharge ED (Routine); Ordered 09/20/24 Ordered By: Concha Andersen Referrals: Alisson Huerta DO [Primary Care Provider, COSMETIC COUNSELOR] Discharge Diet: Full LIquid Discharge Activity: Resume usual activity Patient Instructions: Patient Portal & [place] Instructions, Dysphagia (ED) Activity Restrictions/Additional Instructions: Stop glipizide, metformin, continue to hold Lasix, potassium Follow-up with your doctor. Call in the morning/this morning for an appointment. Return to ED with decreased blood glucose you cannot handle at home, ongoing symptoms. Print Language: Sinhala Coding Level of Care Code ED Convenience Store Clerk for Clayton Rojas
[2024-09-20] MEDS: dextrose 5 % 500 ML IV (00:25)
[2024-09-20 00:27] VITALS: BP 122/66; PULSE 68; RESP 16; O2SAT 98
[2024-09-20 00:29] LABS: Hematocrit 37.0 % (36-47); Hemoglobin 10.50 g/dL (11.27-16.99); Mean Corpuscular HGB Conc 28.4 g/dL (30-55); Mean Corpuscular Hemoglobin 21.8 pg (27-33); Mean Corpuscular Volume 76.9 fl (85-98); Nucleated Red Blood Cells % 0 %; Platelet Count 254 10^3/cmm (157-399); Red Blood Count 4.81 10^6/uL (3.85-5.65); White Blood Count 7.16 10^3/uL (3.29-11.43)
[2024-09-20 00:51] LABS: Alanine Aminotransferase 13 U/L (0-33); Albumin Level 3.9 g/dL (3.5-5.2); Alkaline Phosphatase 89 U/L (35-105); Anion Gap 15.8 (5-19); Aspartate Amino Transferase 14 U/L (0-32); Blood Urea Nitrogen 7 mg/dL (8-23); Calcium 9.6 mg/dL (8.5-10.5); Carbon Dioxide 27 mmol/L (22-29); Chloride 104 mmol/L (98-107); Creatinine Clr Calc Pharmacy 64.7399; Globulin 2.7 g/dL (1.3-4.6); Glucose 124 mg/dL (65-115); Osmolality Calculated 295 mOsm/kg (285-295); Potassium 3.8 mmol/L (3.5-5.1); Sodium 143 mmol/L (136-145); Total Protein 6.6 g/dL (6.6-8.7)
[2024-09-20 01:00] VITALS: PULSE 69; RESP 16; O2SAT 98
[2024-09-20 01:27] VITALS: BP 122/66; PULSE 78; RESP 16; O2SAT 96
== END 2024-09-20 01:29 | disposition home or self-care (01) ==
PROVIDERS: Emergency Provider Physician Assistant; PCP Family Medicine
DX: E86.0 Dehydration (principal); E13.649 Other specified diabetes mellitus with hypoglycemia without coma; I50.9 Heart failure, unspecified; Z72.0 Tobacco use; Z79.82 Long term (current) use of aspirin; Z79.84 Long term (current) use of oral hypoglycemic drugs
CPT/HCPCS: 36415; 80053; 85025; 96360; 99284; J7060

== ENCOUNTER 2024-09-23 19:06 | Emergency (ER) | payer MEDICARE, MEDICAID, SELFPAY ==
--- OUTSIDE RECORDS SUMMARY | 2024-09-23 19:10 | XMS_ITS ---
Author Organization Unknown TREATMENT PLAN [facility] Start Date Provider Encounter for Check-up [id number] [facility]
--- OUTSIDE RECORDS SUMMARY | 2024-09-23 19:11 | XMS_ITS | Patient Health Record ---
Author Organization [facility] Address [address] [place] [address] Care Team Providers Care Press Bucker Name Role Phone Herb Moralesa Primary Care Provider Allergies Allergen (clinical drug ingredient) Drug/Non Drug [...] Problem Status W/U Status Risk Notes Problem 23243413 Age-related osteoporosis without current pathological fracture (M81.0) Active confirmed Problem 74917779 Essential hypertension (I10) Active confirmed Problem 198799975 Type 2 diabetes mellitus without complication, without long-term current use of insulin (E11.9) Active confirmed Problem 78863079 Chronic obstruct yogi pulmonary disease, unspecified COPD type (J44.9) Active confirmed Problem 14823001 Hypercholesterol emia (E78.00) Active confirmed Problem 385334142 Seasonal allergi es (J30.2) Active confirmed Problem 948789097 Abnormal laborat ory test (R89.9) Active confirmed Problem 201940921 Fatty liver (K76.0) Active confirmed Problem 654001841 Vaginal burning (N94.9) Active confirmed Problem 400396540 Gastroesophageal reflux disease with esophagitis, unspecified whether hemorrhage (K21.00) Active confirmed Problem 7671331 Benign essential hypertension (I10) 2018 Active confirmed [facility]-98 5911- Problem Anxiety (54538036) Anxiety (300.02) 11/10 Active confirmed [facility]-98 5911- Problem Type II diabetes mellitus without complication (176667924) Type 2 diabetes (250.00) 2016 Active confirmed [facility]-98 5911- Problem Lichen planus (5750781) Lichen planus (697.0) 2016 Problem resolved confirmed [facility]-98 5911- Problem Fever (092476796) Fever, unspeci fied (780.60) 2017 Problem resolved confirmed [facility]-98 5911- Problem Shortness of breath (597392384) Shortness of breath (786.05) 2016 Problem resolved confirmed [facility]-98 5911- Problem Vertigo (173568574) Vertigo (780.4) 07/02 Problem resolved confirmed [facility]-98 5911- Problem Dizziness (656164280) Dizziness (780.4) 2017 Problem resolved confirmed [facility]-98 5911- Problem Low back pain (088238941) Low back pain (724.2) 2016 Problem resolved confirmed [facility]-98 5911- Problem Vitamin B12 deficiency (non anemic) (75108210) B12 deficiency (266.2) 2017 Problem resolved confirmed [facility]-98 5911- Problem Lumbosacral spondylosis without myelopathy (76472319) 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 Problem resolved confirmed [facility]-98 5911- Problem Secondary polycythemia (98695796) Secondary polycythemia (289.0) 2017 Problem resolved confirmed [facility]-98 5911- Problem Shortness of breath (803169278) Shortness of breath (786.09) 2017 Problem resolved confirmed [facility]-98 5911- Problem Mitral and aortic stenosis (694641737) Aortic stenosis (396.0) 2016 Problem resolved confirmed [facility]-98 5911- Problem Disorder of hematopoietic system (24619399) Other abnormal findings on blood examination (790.99) 2017 Problem resolved confirmed [facility]-98 5911- Problem Congestive heart failure (09170552) Congestive heart failure (428.0) 2016 Problem resolved confirmed [facility]-98 5911- Problem Insomnia (314654483) Insomnia (307.41) 2016 Problem resolved confirmed [facility]-98 5911- Problem Pain in limb (09922468) Leg pain (729.5) 2018 Problem resolved confirmed [facility]-98 5911- Problem Tobacco user (746059622) Tobacco abuse affecting health (305.1) 2017 Problem resolved confirmed [facility]-98 5911- Problem Electrocardiogram abnormal (042951812) Abnormal EKG (794.31) 2017 Problem resolved confirmed [facility]-98 5911- Problem Acquired renal cyst (208630320) Acquired renal cyst (593.2) 2018 Problem resolved confirmed [facility]-98 5911- Problem Emphysema (70092310) Emphysema, other (492.8) 2018 Problem resolved confirmed [facility]-98 5911- Problem Impacted cerumen (74235478) External cerumen impaction (380.4) 2018 Problem resolved confirmed [facility]-98 5911- Problem Chronic uterine inflammatory disease (167062525) Chronic inflammatory disease of uterus (615.1) 2017 Problem resolved confirmed [facility]-98 5911- Problem Screening mammography (01949102) Screening mammogram - other (V76.12) 2017 Problem resolved confirmed [facility]-98 5911- Plan Of Treatment No Information Insurance Providers Payer Name Payer Address Payer Phone Subscriber Number Group Number Insured Name Patient Relationship to Insured Coverage Start Date Coverage End Date [facility] [employer] [address] [address] [place] [phone] [id number] Maranda Garcia Self - patient is the insured Medical (General) History Medical History History ICD Code Hypertension Hypercholesterolemia Congestive heart failure Aortic stenosis GERD Type 2 diabetes Emphysema Acquired renal cyst Lumbar spondylarthritis Eczema Hx of breast cancer Generalized anxiety disorder Hypotension Surgical History Surgery Date(Month/Year) Cholecystectomy Tubal ligation Knee surgery; bilateral Shoulder surgery; left Masectomy; right Appendectomy Tonsillectomy Hospitalization History Reason Date(Month/Year) Child Breast cancer Tubal ligation Cholecystectomy
[2024-09-23 19:30] VITALS: BP 124/79; PULSE 81; RESP 18; TEMP 36.7; O2SAT 94
[2024-09-23 20:34] VITALS: BP 150/91; PULSE 79; O2SAT 96
--- NOTE | 2024-09-23 20:35 | CTR_ITS ---
PROCEDURE INFORMATION: Exam: CT Neck With Contrast Exam date and time: 09/23/2024 9:15 PM Age: 74 years old Clinical indication: Dysphagia / difficulty swallowing; C/O worsening dysphagia over the last three weeks. TECHNIQUE: Imaging protocol: Computed tomography of the neck with contrast. Radiation optimization: All CT scans at this facility use at least one of these dose optimization techniques: automated exposure control; mA and/or kV adjustment per patient size (includes targeted exams where dose is matched to clinical indication); or iterative reconstruction. Contrast material: OMNI 350; Contrast volume: 100 ml; Contrast route: INTRAVENOUS (IV); COMPARISON: CT angio chest PE protcl [id number] 01/08/2024 9:10 AM RADIATION DOSE METRICS: Total DLP (mGy-cm): 203.42 FINDINGS: Salivary glands: Normal. Glands are normal in size. Pharynx: Unremarkable. No significant tonsillar enlargement. Larynx: Unremarkable. Epiglottis is normal. Thyroid: Normal. No enlarged or calcified nodules. Trachea: Visualized trachea is unremarkable. Lungs: Unremarkable as visualized. Lymph nodes: Unremarkable. No lymphadenopathy. Bones/joints: Unremarkable. No acute fracture. Soft tissues: Unremarkable. No significant soft tissue swelling. CT/CT neck w con* [id number] IMPRESSION: No acute findings.
[2024-09-23 21:07] LABS: Hematocrit 36.8 % (36-47); Hemoglobin 10.50 g/dL (11.27-16.99); Mean Corpuscular HGB Conc 28.5 g/dL (30-55); Mean Corpuscular Hemoglobin 21.8 pg (27-33); Mean Corpuscular Volume 76.3 fl (85-98); Nucleated Red Blood Cells % 0 %; Platelet Count 242 10^3/cmm (157-399); Red Blood Count 4.82 10^6/uL (3.85-5.65); White Blood Count 7.36 10^3/uL (3.29-11.43)
[2024-09-23 21:35] LABS: Alanine Aminotransferase 15 U/L (0-33); Albumin Level 3.8 g/dL (3.5-5.2); Alkaline Phosphatase 90 U/L (35-105); Anion Gap 15.4 (5-19); Aspartate Amino Transferase 15 U/L (0-32); Blood Urea Nitrogen 5 mg/dL (8-23); Calcium 9.2 mg/dL (8.5-10.5); Carbon Dioxide 24 mmol/L (22-29); Chloride 101 mmol/L (98-107); Creatinine Clr Calc Pharmacy 64.3808; Globulin 2.5 g/dL (1.3-4.6); Glucose 127 mg/dL (65-115); Osmolality Calculated 283 mOsm/kg (285-295); Potassium 3.4 mmol/L (3.5-5.1); Sodium 137 mmol/L (136-145); Thyroid Stimulating Hormone 1.79 uIU/mL (0.27-4.20); Total Protein 6.3 g/dL (6.6-8.7)
[2024-09-23] MEDS: iohexol 350 mg/mL 500 mL Btl (per mL) IV (21:40)
--- NOTE | 2024-09-23 22:35 | ECG_ITS ---
[facility] Test Date: 2024-09-23 Pat Name: Maranda Garcia Department: Room: Gender: Female Casing Soaker: : 1950 Requested By: Allison Don Order Number: [id number] Reading MD: Measurements Intervals [place] Rate: 55 P: 14 WI: 150 QRS: 29 QRSD: 94 T: 86 QT: 437 QTc: 419 Interpretive Statements SINUS BRADYCARDIA NONSPECIFIC T-WAVE ABNORMALITY Compared to ECG 02/23/2024 13:24:35 Sinus rhythm no longer present T-wave abnormality still present [id number]
--- NOTE | 2024-09-23 22:54 | W.ED.GENADLT ---
HPI - General Adult General: Chief complaint: General Medical Stated complaint: dry mouht/trouble swallowing Time Seen by Provider: 09/23/24 20:31 History of Present Illness: 74-year-old female patient presents to the emergency department complaining of difficulty swallowing patient states this has been going on for several weeks and patient has been seen by a few different providers and states nothing has been done to help her. Patient denies any fever. Patient denies any palpable mass. Patient denies any history of thyroid disorder. Patient denies any chest pain or shortness of breath. Patient denies any fever patient denies any trauma or injury Related Data Home Medications ?Medication ?Instructions ?Recorded ?Confirmed aspirin 81 mg tablet,delayed 81 mg PO DAILY 10/10/19 09/06/24 release atorvastatin 40 mg tablet 40 mg PO DAILY 01/07/24 09/06/24 montelukast 10 mg tablet 10 mg PO DAILY 01/07/24 09/06/24 pantoprazole 40 mg tablet,delayed 40 mg PO DAILY 01/07/24 02/23/24 release ipratropium 0.5 mg-albuterol 3 mg 3 ml inhalation Q6H PRN 02/23/24 09/06/24 (2.5 mg base)/3 mL nebulization soln metformin 1,000 mg tablet 1,000 mg PO BID 02/23/24 09/06/24 potassium chloride 8 mEq 8 meq PO DAILY 02/23/24 09/06/24 capsule,extended release furosemide 20 mg tablet 20 mg PO DIRECTED 09/06/24 09/06/24 Previous Rx's ?Medication ?Instructions ?Recorded tiotropium bromide 18 mcg capsule 1 cap inhalation DAILY #60 09/16/22 with inhalation device (Spiriva inhalations with HandiHaler) albuterol sulfate 90 mcg/actuation See Rx Instructions .Route 11/16/23 aerosol inhaler .COMPLEX #9 grams glipizide 10 mg tablet 10 mg PO BID #180 tabs 01/28/24 Allergies Allergy/AdvReac Type Severity Reaction Status Date / Time amoxicillin Allergy Mild ALGY-Rash Verified 09/23/24 19:34 erythromycin base Allergy Mild ALGY-Rash Verified 09/23/24 19:34 cephalexin (From Keflex) Allergy ALGY-Rash Verified 09/23/24 19:34 guaifenesin (From Mucinex) Allergy ALGY-Hives Verified 09/23/24 19:34 lisinopril Allergy Unknown Verified 09/23/24 19:34 naproxen Allergy unknown Verified 09/23/24 19:34 propoxyphene (From Darvon) Allergy Unknown Verified 09/23/24 19:34 rosuvastatin (From Crestor) Allergy unknown Verified 09/23/24 19:34 Review of Systems General: Reports: 10 or more systems reviewed and unremarkable except in HPI and below PFSH ED PFSH: Medical History CHF (congestive heart failure) Diabetes 1.5, managed as type 2 Surgical History History of tonsillectomy Hx of colonoscopy Dr. Bean at [facility] History of esophagogastroduodenoscopy (EGD) Dr. Bean at [facility] Family History Father Diabetes Mother Diabetes Congestive heart failure (CHF) Other Cancer Dementia Social History Smoking and tobacco/nicotine status: current every day tobacco/nicotine user Alcohol intake: never Substance/Drug Use: never Adopted: No Marital status: / Number of children: 2 service: No Current gender identity: Female Physical Exam Const: COMMON NORMALS: no acute distress, average body habitus, patient oriented x3, no limitations, healthy appearing, alert and well nourished HENMT: COMMON NORMALS: normocephalic, atraumatic, hearing grossly normal bilaterally, Normal nasal mucous membranes and turbinates present, moist oral mucous membranes, oropharynx normal, dentition normal and gingiva normal HEAD & SCALP: normocephalic and atraumatic NOSE: Normal nasal mucous membranes and turbinates present Neck/C-Spine: COMMON NORMALS: full ROM, no lymphadenopathy, supple, no meningeal signs, no JVD, Thyroid normal and No carotid bruits THYROID: Thyroid normal Lymph: LYMPHATIC: no lymphadenopathy noted and no lymphedema noted Chest: COMMONS NORMALS: normal inspection of the chest and normal palpation of entire chest wall Resp: COMMON NORMALS: normal respiratory effort, No retractions, No use of accessory muscles and clear to auscultation bilaterally AUSCULTATION: clear to auscultation bilaterally Cardio: COMMON NORMALS: no JVD, regular rate (Sinus bradycardia) and regular rhythm RATE: regular rate (Sinus bradycardia) RHYTHM: regular rhythm : COMMON NORMALS: Yes no CVA tenderness BLADDER/KIDNEY EXAM: Yes no CVA tenderness Back/Pelvis: COMMON NORMALS: no CVA tenderness Neuro: COMMON NORMALS: patient oriented x3, CN's II-XII intact bilaterally, moves all extremities, no focal motor deficits and no sensory deficits noted SENSORIUM/ORIENTATION: Yes alert MENINGEAL SIGNS: Yes no meningeal signs Psych: COMMON NORMALS: mental status grossly normal, Normal thought process present, cooperative, normal affect, speech normal and activity/motor behavior normal SPEECH: Yes normal speech THOUGHT PROCESS: Normal thought process present Skin: COMMON NORMALS: no rashes or lesions noted and turgor normal GENERAL SKIN EXAM: no rashes or lesions noted, elasticity normal and turgor normal Course Vital Signs: Vital signs: Vital Signs Temperature 98.0 F 09/23/24 19:30 Pulse Rate 79 09/23/24 20:34 Respiratory Rate 18 09/23/24 19:30 Blood Pressure 150/91 09/23/24 20:34 Pulse Oximetry 96 09/23/24 20:34 Oxygen Delivery Me thod Nasal Cannula 09/23/24 20:34 Oxygen Flow Rate 2 09/23/24 20:34 [facility] - General Adult Medical Decision Making Patient is well-appearing nontoxic and in no acute distress. 74-year-old female patient presents to the emergency department complaining of difficulty swallowing patient states this has been going on for several weeks and patient has been seen by a few different providers and states nothing has been done to help her. Patient denies any fever. Patient denies any palpable mass. Patient denies any history of thyroid disorder. Patient denies any chest pain or shortness of breath. Patient denies any fever patient denies any trauma or injury labs do not reveal any concerning findings. There is no palpable mass on exam. Given patient's continued complaint and repeat visits I did order a CT of the neck with contrast for evaluation there were no acute concerning findings. I did obtain an EKG that shows sinus bradycardia patient does not have any chest pain and does not have any shortness of breath. This is a chronic problem that has not worsened over time but remains consistent. Given patient's persistent and consistent complaint I will refer her to surgery for a scope. I did discuss with patient close follow-up return precautions and home care at this point I do not feel any additional emergent testing is warranted patient's vital signs are stable patient is afebrile patient is medically cleared and appropriate for discharge Lab Data 09/23/24 21:00 09/23/24 21:[address] 09/23/24 20:35 IMPRESSION: No acute findings. Laboratory Results WBC 7.36 10^3/uL (3.29-11.43) 09/23/24 21:00 RBC 4.82 10^6/uL (3.85-5.65) 09/23/24 21:00 Hgb 10.50 g/dL (11.27-16.99) L 09/23/24 21:00 Hct 36.8 % (36-47) 09/23/24 21:00 MCV 76.3 fl (85-98) L 09/23/24 21:00 MCH 21.8 pg (27-33) L 09/23/24 21:00 MCHC 28.5 g/dL (30-55) L 09/23/24 21:00 RDW 15.9 % (12.1-15.1) H 09/23/24 21:00 Plt Count 242 10^3/cmm (157-399) 09/23/24 21:00 MPV 10.8 fL (7.4-10.4) H 09/23/24 21:00 Neut % (Auto) 49.1 % 09/23/24 21:00 Lymph % (Auto) 37.5 % 09/23/24 21:00 [place] % (Auto) 10.9 % 09/23/24 21:00 Eos % (Auto) 1.9 % 09/23/24 21:00 Baso % (Auto) 0.5 % 09/23/24 21:00 Neut # (Auto) 3.61 10^3/uL (1.8-7.7) 09/23/24 21:00 Lymph # (Auto) 2.8 10^3/uL (0.8-4.8) 09/23/24 21:00 [place] # (Auto) 0.8 10^3/uL (0.2-0.9) 09/23/24 21:00 Eos # (Auto) 0.1 10^3/uL (0.0-0.8) 09/23/24 21:00 Baso # (Auto) 0.0 10^3/uL (0.0-0.1) 09/23/24 21:00 Nucleated RBC % (auto) 0 % 09/23/24 21:00 Nucleated RBCs # 0.0 /100WBC 09/23/24 21:00 Sodium 137 mmol/L (136-145) 09/23/24 21:00 Potassium 3.4 mmol/L (3.5-5.1) L 09/23/24 21:00 Chloride 101 mmol/L (98-107) 09/23/24 21:00 Carbon Dioxide 24 mmol/L (22-29) 09/23/24 21:00 Anion Gap 15.4 (5-19) 09/23/24 21:00 BUN 5 mg/dL (8-23) L 09/23/24 21:00 Creatinine 0.7 mg/dL (0.5-0.9) 09/23/24 21:00 GFR Calculation Not Reportable 09/23/24 21:00 Glucose 127 mg/dL (65-115) H 09/23/24 21:00 Calculated Osmolality 283 mOsm/kg (285-295) L 09/23/24 21:00 Calcium 9.2 mg/dL (8.5-10.5) 09/23/24 21:00 Total Bilirubin 0.5 mg/dL (0.15-1.2) 09/23/24 21:00 AST 15 U/L (0-32) 09/23/24 21:00 ALT 15 U/L (0-33) 09/23/24 21:00 Alkaline Phosphatase 90 U/L (35-105) 09/23/24 21:00 Total Protein 6.3 g/dL (6.6-8.7) L 09/23/24 21:00 Albumin 3.8 g/dL (3.5-5.2) 09/23/24 21:00 Globulin 2.5 g/dL (1.3-4.6) 09/23/24 21:00 TSH 1.79 uIU/mL (0.27-4.20) 09/23/24 21:00 All radiology interpretation(s) finalized by discharge Discharge Plan Discharge Patient Disposition: Home Clinical Impression: Dysphagia Condition: Stable Prescriptions: No Action aspirin 81 mg tablet,delayed release (DR/EC) 81 mg PO DAILY Spiriva with HandiHaler 18 mcg capsule, w/inhalation device 1 cap inhalation DAILY Qty: 60 5RF Rx Instructions: puncture 1 cap using device; one dose = 2 inhalations ipratropium-albuterol 0.5 mg-3 mg(2.5 mg base)/3 mL solution for nebulization 3 ml inhalation Q6H PRN potassium chloride 8 mEq capsule, extended release 8 meq PO DAILY furosemide 20 mg tablet 20 mg PO DIRECTED Patient Comments: Take one tab every other day albuterol sulfate 90 mcg/actuation HFA aerosol inhaler See Rx Instructions .ROUTE .COMPLEX Qty: 9 0RF Dose Instruction: INHALE 2 PUFFS BY MOUTH EVERY 6 HOURS NEEDED FOR SHORTNESS OF BREATH FOR WHEEZING Rx Instructions: INHALE 2 PUFFS BY MOUTH EVERY 6 HOURS NEEDED FOR SHORTNESS OF BREATH FOR WHEEZING glipizide 10 mg tablet 10 mg PO BID Qty: 180 0RF atorvastatin 40 mg tablet 40 mg PO DAILY pantoprazole 40 mg tablet,delayed release (DR/EC) 40 mg PO DAILY montelukast 10 mg tablet 10 mg PO DAILY metformin 1,000 mg tablet 1,000 mg PO BID Rx Instructions: 1/2 tab am 1 tab pm Discharge Orders: Discharge ED (Routine); Ordered 09/23/24 Ordered By: Allison Don Referrals: Alisson Huerta DO [Primary Care Provider, [employer]] Discharge Diet: Advance as tolerated Discharge Activity: Increase activity as tolerated Patient Instructions: Opioid Safety, Pain Management, Patient Portal & [place] Instructions, Dysphagia (ED) Activity Restrictions/Additional Instructions: Return to ER if You have chest pain. You have shortness of breath. Return to the emergency department if: You choke on your saliva. Page 2 of 2 You cannot eat or drink liquids at all. Call your doctor or therapist if: You lose weight without trying. Your signs and symptoms get worse, or you have new signs or symptoms. You have signs or symptoms of dehydration, such as increased thirst, dark yellow urine, or little or no urine. You get colds often. You have questions or concerns about your condition or care. 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
[2024-09-23 23:07] VITALS: BP 150/88; PULSE 80; O2SAT 96
--- NOTE | 2024-09-26 07:28 | DCPLANNER ---
messaged gen surg for er f/u
== END 2024-09-23 23:09 | disposition home or self-care (01) ==
PROVIDERS: Emergency Provider Registered Nurse; PCP Family Medicine
DX: R13.10 Dysphagia, unspecified (principal); Z79.84 Long term (current) use of oral hypoglycemic drugs; Z79.82 Long term (current) use of aspirin; Z72.0 Tobacco use; E13.9 Other specified diabetes mellitus without complications; I50.9 Heart failure, unspecified
CPT/HCPCS: 36415; 70491; 80053; 84443; 85025; 93005; 93010; 99285

== ENCOUNTER 2024-09-25 08:14 | Emergency (ER) | payer MEDICARE, MEDICAID, SELFPAY ==
--- OUTSIDE RECORDS SUMMARY | 2024-09-25 08:18 | XMS_ITS | Patient Health Record ---
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 Role Phone Herb Moralesa Primary Care Provider [phone] Allergies Allergen (clinical drug ingredient) Drug/Non Drug [...] Problem Status W/U Status Risk Notes Problem 99112667 Age-related osteoporosis without current pathological fracture (M81.0) Active confirmed Problem 84811060 Essential hypertension (I10) Active confirmed Problem 019684041 Type 2 diabetes mellitus without complication, without long-term current use of insulin (E11.9) Active confirmed Problem 25962710 Chronic obstruct yogi pulmonary disease, unspecified COPD type (J44.9) Active confirmed Problem 00744344 Hypercholesterol emia (E78.00) Active confirmed Problem 911484889 Seasonal allergi es (J30.2) Active confirmed Problem 648564481 Abnormal laborat ory test (R89.9) Active confirmed Problem 421326171 Fatty liver (K76.0) Active confirmed Problem 553200095 Vaginal burning (N94.9) Active confirmed Problem 286841228 Gastroesophageal reflux disease with esophagitis, unspecified whether hemorrhage (K21.00) Active confirmed Problem 1865747 Benign essential hypertension (I10) 2018 Active confirmed [id number]- Problem Anxiety (08243689) Anxiety (300.02) 11/10 Active confirmed [id number]- Problem Type II diabetes mellitus without complication (230209203) Type 2 diabetes (250.00) 2016 Active confirmed [id number]- Problem Lichen planus (6546766) Lichen planus (697.0) 2016 Problem resolved confirmed [id number]- Problem Fever (536439728) Fever, unspeci fied (780.60) 2017 Problem resolved confirmed [id number]- Problem Shortness of breath (112166980) Shortness of breath (786.05) 2016 Problem resolved confirmed [id number]- Problem Vertigo (785936575) Vertigo (780.4) 07/02 Problem resolved confirmed [id number]- Problem Dizziness (093196278) Dizziness (780.4) 2017 Problem resolved confirmed [id number]- Problem Low back pain (876686058) Low back pain (724.2) 2016 Problem resolved confirmed [id number]- Problem Vitamin B12 deficiency (non anemic) (51881761) B12 deficiency (266.2) 2017 Problem resolved confirmed [id number]- Problem Lumbosacral spondylosis without myelopathy (80772068) 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 Problem resolved confirmed [id number]- Problem Secondary polycythemia (40036286) Secondary polycythemia (289.0) 2017 Problem resolved confirmed [id number]-98 [id number]- Problem Shortness of breath (851106385) Shortness of breath (786.09) 2017 Problem resolved confirmed [id number]-98 [id number]- Problem Mitral and aortic stenosis (038522680) Aortic stenosis (396.0) 2016 Problem resolved confirmed [id number]- Problem Disorder of hematopoietic system (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) Other abnormal findings on blood examination (790.99) 2017 Problem resolved confirmed [id number]- Problem Congestive heart failure (50878810) Congestive heart failure (428.0) 2016 Problem resolved confirmed [id number]- Problem Insomnia (724652516) Insomnia (307.41) 2016 Problem resolved confirmed [id number]- Problem Pain in limb (85631363) Leg pain (729.5) 2018 Problem resolved confirmed [id number]-98 [id number]- Problem Tobacco user (535054360) Tobacco abuse affecting health (305.1) 2017 Problem resolved confirmed [id number]-98 [id number]- Problem Electrocardiogram abnormal (665987877) Abnormal EKG (794.31) 2017 Problem resolved confirmed [facility]-98 [id number]- Problem Acquired renal cyst (373752911) Acquired renal cyst (593.2) 2018 Problem resolved confirmed [facility]-98 [id number]- Problem Emphysema (06696214) Emphysema, other (492.8) 2018 Problem resolved confirmed [id number]- Problem Impacted cerumen (77704953) External cerumen impaction (380.4) 2018 Problem resolved confirmed [facility]-98 [id number]- Problem Chronic uterine inflammatory disease (111285830) Chronic inflammatory disease of uterus (615.1) 2017 Problem resolved confirmed [facility] [place]- Problem Screening mammography (15134976) Screening mammogram - other (V76.12) 2017 Problem resolved confirmed [facility] [place]- Plan Of Treatment No Information Insurance Providers Payer Name Payer Address Payer Phone Subscriber Number Group Number Insured Name Patient Relationship to Insured Coverage Start Date Coverage End Date [facility] [employer] [address] [address] [place] [address] [id number] Maranda Garcia Self - patient is the [...]
[2024-09-25 08:23] VITALS: BP 199/75; PULSE 72; RESP 17; TEMP 37.1; O2SAT 96; BMI 30.4
[2024-09-25 08:37] LABS: Hematocrit 38.0 % (36-47); Hemoglobin 10.80 g/dL (11.27-16.99); Mean Corpuscular HGB Conc 28.4 g/dL (30-55); Mean Corpuscular Hemoglobin 21.6 pg (27-33); Mean Corpuscular Volume 76.2 fl (85-98); Nucleated Red Blood Cells % 0 %; Platelet Count 223 10^3/cmm (157-399); Red Blood Count 4.99 10^6/uL (3.85-5.65); White Blood Count 5.30 10^3/uL (3.29-11.43)
--- NOTE | 2024-09-25 08:37 | XRR_ITS ---
PROCEDURE INFORMATION: Exam: XR Chest Exam date and time: 09/25/2024 8:40 AM Age: 74 years old Clinical indication: Cough and dyspnea; Additional info: Dyspnea/cough TECHNIQUE: Imaging protocol: Radiologic exam of the chest. Views: 1 view. COMPARISON: CR (CHEST, ) 09/04/2024 10:07 PM FINDINGS: Lungs: Unremarkable. No consolidation. Pleural spaces: Unremarkable. No pleural effusion. No pneumothorax. Heart/Mediastinum: Unremarkable. No cardiomegaly. Bones/joints: Nothing acute. No change. XR/XR chest 1V portable [id number] IMPRESSION: No acute disease.
--- NOTE | 2024-09-25 08:45 | ED_ITS ---
HPI - URI/Sore Throat 2 General: Chief Complaint: Upper Respiratory Infection Stated Complaint: trouble swallowing Time Seen by Provider: 09/25/24 08:19 History of Present Illness: 74-year-old female presents emergency ro [facility] dry mouth difficulty swallowing. She had a brief episode this morning when she short of breath she is normally on oxygen at 2 L/min by nasal cannula. She is not having any respiratory distress now she is not hypoxic. She denies any chest pain this been ongoing issue for several years 2 years ago she had a modified barium swallow study done she seen surgery she has been recently referred to ENT. She has been ER multiple times with this complaint last time she was here CT of the neck was done with contrast did not have any significant findings Associated symptoms: Deny abdominal pain, chills, chest pain or fever(s) Related Data Home Medications ?Medication ?Instructions ?Recorded ?Confirmed aspirin 81 mg tablet,delayed 81 mg PO DAILY 10/10/19 0 09/06/24 release atorvastatin 40 mg tablet 40 mg PO DAILY 01/07/2408/21 montelukast 10 mg tablet 10 mg PO DAILY 01/07/2408/21 pantoprazole 40 mg tablet,delayed 40 mg PO DAILY 01/0602/23/24 release ipratropium 0.5 mg-albuterol 3 mg 3 ml inhalation Q6H PRN 02/23/24 09/06/24 (2.5 mg base)/3 mL nebulization soln metformin 1,000 mg tablet 1,000 mg PO BID 02/23/24 potassium chloride 8 mEq 8 meq PO DAILY 02/23/2408/21 capsule,extended release furosemide 20 mg tablet 20 mg PO DIRECTED 5 09/06/24 Previous Rx's ?Medication ?Instructions ?Recorded tiotropium bromide 18 mcg capsule 1 cap inhalation YADY LY #60 09/16/22 with inhalation device (Spiriva inhalations with HandiHaler) albuterol sulfate 90 mcg/actuation See Rx Instructions .Route 11/16/23 aerosol inhaler .COMPLEX #9 grams glipizide 10 mg tablet 10 mg PO BID #180 tabs 01/27 Allergies Allergy/AdvReac Type Severity Reaction Status Date / Time amoxicillin Allergy Mild ALGY-Rash Verified 09/23/24 19:34 erythromycin base Allergy Mild ALGY-Rash Verified 09/23/24 19:34 cephalexin (From Keflex) Allergy ALGY-Rash Verified 09/23/24 19:34 guaifenesin (From Mucinex) Allergy ALGY-Hives Verified 09/23/24 19:34 lisinopril Allergy Unknown Verified 09/23/24 19:34 naproxen Allergy unknown Verified 09/23/24 19:34 propoxyphene (From Darvon) Allergy Unknown Verified 09/23/24 19:34 rosuvastatin (From Crestor) Allergy unknown Verified 09/23/24 19:34 Review of Systems 2 Const: Denies: fever(s) or chills Card: Denies: chest pain Resp: Denies: dyspnea GI: Denies: abdominal pain : Denies: dysuria, urinary frequency or urinary urgency Musc: Denies: neck pain or back pain Skin/Breast: Denies: rash PFSH ED 2 PFSH: Medical History (Updated 09/28/24 @ 00:00 by SAHIL Marks) CHF (congestive heart failure) Diabetes 1.5, managed as type 2 Surgical History History of tonsillectomy Hx of colonoscopy Dr. Bean at [facility] History of esophagogastroduodenoscopy (EGD) Dr. Bean at [facility] Family History Father Diabetes Mother Diabetes Congestive heart failure (CHF) Other Cancer Dementia Social History Smoking and tobacco/nicotine status: current every day tobacco/nicotine user Alcohol intake: never Substance/Drug Use: never Adopted: No Marital status: / Number of children: 2 service: No Current gender identity: Female Physical Exam 2 Const: COMMON NORMALS: no acute distress GENERAL APPEARANCE: cooperative and comfortable ORIENTATION/CONSCIOUSNESS: Yes awake, Yes oriented to person, Yes oriented to place and Yes oriented to time HENMT: COMMON NORMALS: normocephalic, atraumatic and hearing grossly normal bilaterally HEAD & SCALP: normocephalic and atraumatic Resp: COMMON NORMALS: normal respiratory effort, No retractions, No use of accessory muscles and clear to auscultation bilaterally AUSCULTATION: clear to auscultation bilaterally Cardio: COMMON NORMALS: regular rate, regular rhythm and No murmurs present (Cardio) RATE: regular rate RHYTHM: regular rhythm GI: COMMON NORMALS: Soft to palpation and No hepatosplenomegaly present A USCULTATION: Yes normoactive bowel sounds PALPATION: Yes Soft to palpation, No Tenderness to palpation present (GI), No Guarding due to palpation present (GI) and Yes No hepatosplenomegaly present Extremity: COMMON NORMALS: normal to inspection, capillary refill normal, no clubbing, cyanosis or edema, no calf tenderness and no pedal edema Neuro: SENSORIUM/ORIENTATION: Yes oriented to person, Yes oriented to place and Yes oriented to time Skin: COMMON NORMALS: no rashes or lesions noted GENERAL SKIN EXAM: no rashes or lesions noted Course 2 Vital Signs: Vital signs: Vital Signs Temperature 98.7 F 09/25/24 08:23 Pulse Rate 66 09/25/24 09:18 Respiratory Rate 17 09/25/24 08:23 Blood Pressure 120/71 09/25/24 09:18 Pulse Oximetry 98 09/25/24 09:18 Oxygen Delivery Me thod Nasal Cannula 09/25/24 08:23 Oxygen Flow Rate 2 09/25/24 08:23 MDM - URI/Sore Throat Medical Decision Making Patient has had extensive workup this been ongoing problem for years she has had modified barium swallow. I had referred her to speech therapy at this point she has no acute condition going on we will discharge her back to home. Recommend she follow-up with her primary care doctor and consider referral back to speech therapy. No intervention or change in medications at this time. CT of the neck from most recent visit reviewed Medical Records I reviewed the patient's medical records. Lab Data I reviewed the patient's lab results. 09/25/24 08:32 09/25/24 08:32 Radiology Impressions Chest X-Ray 09/25/24 08:37 IMPRESSION: No acute disease. Laboratory Results WBC 5.30 10^3/uL (3.29-11.43) 09/25/24 08:32 RBC 4.99 10^6/uL (3.85-5.65) 09/25/24 08:32 Hgb 10.80 g/dL (11.27-16.99) L 09/25/24 08:32 Hct 38.0 % (36-47) 09/25/24 08:32 MCV 76.2 fl (85-98) L 09/25/24 08:32 MCH 21.6 pg (27-33) L 09/25/24 08:32 MCHC 28.4 g/dL (30-55) L 09/25/24 08:32 RDW 15.7 % (12.1-15.1) H 09/25/24 08:32 Plt Count 223 10^3/cmm (157-399) 09/25/24 08:32 MPV 10.7 fL (7.4-10.4) H 09/25/24 08:32 Neut % (Auto) 62.9 % 09/25/24 08:32 Lymph % (Auto) 25.7 % 09/25/24 08:32 [place] % (Auto) 8.5 % 09/25/24 08:32 Eos % (Auto) 1.9 % 09/25/24 08:32 Baso % (Auto) 0.6 % 09/25/24 08:32 Neut # (Auto) 3.34 10^3/uL (1.8-7.7) 09/25/24 08:32 Lymph # (Auto) 1.4 10^3/uL (0.8-4.8) 09/25/24 08:32 [place] # (Auto) 0.5 10^3/uL (0.2-0.9) 09/25/24 08:32 Eos # (Auto) 0.1 10^3/uL (0.0-0.8) 09/25/24 08:32 Baso # (Auto) 0.0 10^3/uL (0.0-0.1) 09/25/24 08:32 Nucleated RBC % (auto) 0 % 09/25/24 08:32 Nucleated RBCs # 0.0 /100WBC 09/25/24 08:32 Sodium 141 mmol/L (136-145) 09/25/24 08:32 Potassium 3.6 mmol/L (3.5-5.1) 09/25/24 08:32 Chloride 102 mmol/L (98-107) 09/25/24 08:32 Carbon Dioxide 27 mmol/L (22-29) 09/25/24 08:32 Anion Gap 15.6 (5-19) 09/25/24 08:32 BUN 5 mg/dL (8-23) L 09/25/24 08:32 Creatinine 0.8 mg/dL (0.5-0.9) 09/25/24 08:32 GFR Calculation Not Reportable 09/25/24 08:32 Glucose 177 mg/dL (65-115) H 09/25/24 08:32 Calculated Osmolality 294 mOsm/kg (285-295) 09/25/24 08:32 Calcium 9.3 mg/dL (8.5-10.5) 09/25/24 08:32 Total Bilirubin 0.5 mg/dL (0.15-1.2) 09/25/24 08:32 AST 15 U/L (0-32) 09/25/24 08:32 ALT 16 U/L (0-33) 09/25/24 08:32 Alkaline Phosphatase 94 U/L (35-105) 09/25/24 08:32 Total Protein 6.8 g/dL (6.6-8.7) 09/25/24 08:32 Albumin 4.0 g/dL (3.5-5.2) 09/25/24 08:32 Globulin 2.8 g/dL (1.3-4.6) 09/25/24 08:32 All radiology interpretation(s) finalized by discharge Discharge Plan Discharge Patient Disposition: Home Clinical Impression: Dysphagia COPD (chronic obstructive pulmonary disease) Qualifiers: COPD type: emphysema Emphysema type: unspecified Qualified Code(s): J43.9 - Emphysema, unspecified Condition: Stable Prescriptions: No Action aspirin 81 mg tablet,delayed release (DR/EC) 81 mg PO DAILY Spiriva with HandiHaler 18 mcg capsule, w/inhalation device 1 cap inhalation DAILY Qty: 60 5RF Rx Instructions: puncture 1 cap using device; one dose = 2 inhalations ipratropium-albuterol 0.5 mg-3 mg(2.5 mg base)/3 mL solution for nebulization 3 ml inhalation Q6H PRN potassium chloride 8 mEq capsule, extended release 8 meq PO DAILY furosemide 20 mg tablet 20 mg PO DIRECTED Patient Comments: Take one tab every other day albuterol sulfate 90 mcg/actuation HFA aerosol inhaler See Rx Instructions .ROUTE .COMPLEX Qty: 9 0RF Dose Instruction: INHALE 2 PUFFS BY MOUTH EVERY 6 HOURS NEEDED FOR SHORTNESS OF BREATH FOR WHEEZING Rx Instructions: INHALE 2 PUFFS BY MOUTH EVERY 6 HOURS NEEDED FOR SHORTNESS OF BREATH FOR WHEEZING glipizide 10 mg tablet 10 mg PO BID Qty: 180 0RF atorvastatin 40 mg tablet 40 mg PO DAILY pantoprazole 40 mg tablet,delayed release (DR/EC) 40 mg PO DAILY montelukast 10 mg tablet 10 mg PO DAILY metformin 1,000 mg tablet 1,000 mg PO BID Rx Instructions: 1/2 tab am 1 tab pm Discharge Orders: Discharge ED (Routine); Ordered 09/25/24 Ordered By: Attila Cordon Referrals: Alisson Huerta DO [Primary Care Provider, [facility]] Discharge Diet: Usual diet Discharge Activity: Resume usual activity Patient Instructions: Opioid Safety, Pain Management, Patient Portal & [place] Instructions Activity Restrictions/Additional Instructions: Thank you for choosing [facility] for your healthcare needs today. It is very important that you follow up as instructed or that you return to the Emergency Department should you have concerns or if your condition changes or worsens in any way. You are seen emergency room with complaint of shortness of breath difficulty swallowing. Reviewing chart and swallowing difficulties 1 ongoing issue for several years you had a modified barium swallow test in November 2022. Reviewed the report from us that showed some residual when swallowing. Talk to your primary care doctor about referral to speech therapy for further treatment options. 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
[2024-09-25 08:54] LABS: Alanine Aminotransferase 16 U/L (0-33); Albumin Level 4.0 g/dL (3.5-5.2); Alkaline Phosphatase 94 U/L (35-105); Anion Gap 15.6 (5-19); Aspartate Amino Transferase 15 U/L (0-32); Blood Urea Nitrogen 5 mg/dL (8-23); Calcium 9.3 mg/dL (8.5-10.5); Carbon Dioxide 27 mmol/L (22-29); Chloride 102 mmol/L (98-107); Creatinine Clr Calc Pharmacy 64.2016; Globulin 2.8 g/dL (1.3-4.6); Glucose 177 mg/dL (65-115); Osmolality Calculated 294 mOsm/kg (285-295); Potassium 3.6 mmol/L (3.5-5.1); Sodium 141 mmol/L (136-145); Total Protein 6.8 g/dL (6.6-8.7)
--- NOTE | 2024-09-25 08:59 | PC.NURSE ---
Dr. Cordon requested a bedside swallow study, pt was able to successfully swallow ice chips, water, and pudding with no difficulty swallowing. Dr Cordon notified.
--- NOTE | 2024-09-25 09:05 | ECG_ITS ---
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
[2024-09-25 09:18] VITALS: BP 120/71; PULSE 66; O2SAT 98
== END 2024-09-25 09:18 | disposition home or self-care (01) ==
PROVIDERS: Emergency Provider Family Medicine; PCP Family Medicine
DX: R13.10 Dysphagia, unspecified (principal); J43.9 Emphysema, unspecified; Z79.82 Long term (current) use of aspirin; Z79.84 Long term (current) use of oral hypoglycemic drugs; Z72.0 Tobacco use; I50.9 Heart failure, unspecified; E13.9 Other specified diabetes mellitus without complications
CPT/HCPCS: 71045; 80053; 85025; 93005; 93010; 99285

== ENCOUNTER → 2024-10-05 08:09 | Outpatient (BNVA) | payer MEDICARE, MEDICAID, SELFPAY | PROVIDERS: PCP Family Medicine; Visit Provider Surgery | DX: K21.9 Gastro-esophageal reflux disease without esophagitis (principal) | CPT/HCPCS: 99214 ==

== ENCOUNTER 2024-10-08 03:52 | Emergency (ER) | payer MEDICARE, MEDICAID, SELFPAY ==
[2024-10-08 04:00] VITALS: BP 115/72; PULSE 82; RESP 18; TEMP 36.6; O2SAT 94; BMI 29.3
--- OUTSIDE RECORDS SUMMARY | 2024-10-08 04:07 | XMS_ITS | Patient Health Record ---
Author Organization [facility] Address [address] [place] [address] Care Team Providers Care Prepress Stripper Name Role Phone Herb Moralesa Primary Care Provider Allergies Allergen (clinical drug ingredient) Drug/Non Drug Allergy documented on EMR Reaction Allergy Type Onset Date Status amoxicillin Amoxicillin Unknown Drug Allergy Act yogi rosuvastatin Crestor Unknown Drug Allergy Acti ve Darvon Unknown Drug Allergy Active erythromycin Erythromycin Unknown Drug Allergy A ctive lisinopril Lisinopril Unknown Drug Allergy Activ e guaifenesin Mucinex rash Drug Allergy Activ e naproxen Naproxen Unknown Drug Allergy Active Reason For Referral No Information Medications Medication SIG (Take, Route, Frequency, Duration) Notes Start Date End Date Status Aspirin 81 MG Tablet Delayed Release 2 tablets Orally Once a day; Duration: 30 day(s) Active Atorvastatin Calcium 40 MG Tablet 1 tablet Orally once daily at hs; Duration: 90 days Take along with CoQ10 100mg daily Active Indapamide 1.25 MG Tablet TAKE 1 TABLET BY MOUTH ONCE DAILY IN THE MORNING; Duration: 30 Active metFORMIN HCl 1000 MG Tablet Take 1/2 tablet by mouth in AM 1 tab by mouth in the PM Orally bid; Duration: 90 days Active Pantoprazole Sodium 40 MG Tablet Delayed Release 1 tablet Orally Once a day; Duration: 90 days Active glipiZIDE ER 10 MG Tablet Extended Release 24 Hour 1 tablet with food Orally twice daily; Duration: 90 days Dose increase. Active Montelukast Sodium 10 MG Tablet 1 tablet Orally Once a day; Duration: 90 days Active Ondansetron HCl 4 MG Tablet 1 tablet Orally every 8 hours; Duration: 14 days 08/27/2021 Active Albuterol Sulfate HFA 108 (90 Base) MCG/ACT Aerosol Solution 2 puff as needed Inhalation every 4 hrs; Duration: 30 days Active Social History Tobacco Use: Social History Observation Description Date Details (start date - stop date) Current Smoker NA - NA Social History Tobacco Use: Social Info Question Answer Notes xTobacco Use/Smoking Are you a current smoker How often do you smoke cigarettes? every day How many cigarettes a day do you smoke? 5 or less How soon after you wake up do you smoke your first cigarette? 6-30 minutes Are you interested in quitting? Ready to quit Problems Problem Type SNOMED Code ICD Code Onset Dates Problem Status W/U Status Risk Notes Problem Age-related osteoporosis (525839035) Age-related osteoporosis without current pathological fracture (M81.0) Active confirmed Problem Essential hypertension (51769909) Essential hypertension (I10) Active confirmed Problem Type II diabetes mellitus without complication (011005732) Type 2 diabetes mellitus without complication, without long-term current use of insulin (E11.9) Active confirmed Problem COPD - Chronic obstructive pulmonary disease (58506070) Chronic obstructive pulmonary disease, unspecified COPD type (J44.9) Active confirmed Problem Hypercholesterolemia (33107700) Hypercholesterolemia (E78.00) Active confirmed Problem Seasonal allergy (557686224) Seasonal allergies (J30.2) Active confirmed Problem Laboratory test result abnormal (870524684) Abnormal laboratory test (R89.9) Active confirmed Problem Fatty liver (463452459) Fatty liver (K76.0) Active confirmed Problem Burning sensation of vagina (finding) (429400409) Vaginal burning (N94.9) Active confirmed Problem Gastroesophageal reflux disease with esophagitis (disorder) (599239310) Gastroesophageal reflux disease with esophagitis, unspecified whether hemorrhage (K21.00) Active confirmed Problem Benign essential hypertension (0483074) Benign essential hypertension (I10) 2018 Active confirmed [id number]- Problem Anxiety (58919415) Anxiety (300.02) 11/10 Active confirmed [id number]- Problem Diabetes mellitus type 2 (disorder) (90728278) Type 2 diabetes (250.00) 2016 Active confirmed [id number]- Problem Lichen planus (3722363) Lichen planus (697.0) 2016 Problem resolved confirmed [id number]- Problem Fever (414346313) Fever, unspeci fied (780.60) 2017 Problem resolved confirmed [id number]- Problem Shortness of breath (806838929) Shortness of breath (786.05) 2016 Problem resolved confirmed [id number]- Problem Vertigo (804966744) Vertigo (780.4) 07/02 Problem resolved confirmed [id number]- Problem Dizziness (498733442) Dizziness (780.4) 0 2017 Problem resolved confirmed [id number]- Problem Low back pain (764620180) Low back pain (724.2) 2016 Problem resolved confirmed [id number]- Problem Vitamin B12 deficiency (non anemic) (23708494) B12 deficiency (266.2) 2017 Problem resolved confirmed [id number]- Problem Lumbosacral spondylosis without myelopathy (79036840) 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 Problem resolved confirmed [id number]- Problem Secondary polycythemia (39256053) Secondary polycythemia (289.0) 2017 Problem resolved confirmed [id number]- Problem Shortness of breath (366151027) Shortness of breath (786.09) 2017 Problem resolved confirmed [id number]- Problem Mitral and aortic stenosis (648490668) Aortic stenosis (396.0) 2016 Problem resolved confirmed [id number]- Problem 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) Other abnormal findings on blood examination (790.99) 2017 Problem resolved confirmed [id number]- Problem Congestive heart failure (37245703) Congestive heart failure (428.0) 2016 Problem resolved confirmed [id number]- Problem Insomnia (005201896) Insomnia (307.41) 2016 Problem resolved confirmed [id number]- Problem Pain in limb (44813564) Leg pain (729.5) 2018 Problem resolved confirmed [id number]- Problem Tobacco user (894501788) Tobacco abuse affecting health (305.1) 2017 Problem resolved confirmed [id number]- Problem Electrocardiogram abnormal (920464907) Abnormal EKG (794.31) 2017 Problem resolved confirmed [id number]- Problem Acquired renal cyst (846298928) Acquired renal cyst (593.2) 2018 Problem resolved confirmed [id number]- Problem Emphysema (62714264) Emphysema, other (492.8) 2018 Problem resolved confirmed [id number]- Problem Impacted cerumen (26665012) External cerumen impaction (380.4) 2018 Problem resolved confirmed [id number]- Problem Chronic uterine inflammatory disease (564217535) Chronic inflammatory disease of uterus (615.1) 2017 Problem resolved confirmed [id number]- Problem Screening mammograph y (44626791) Screening mammogram - other (V76.12) 2017 Problem resolved confirmed [id number]- Plan Of Treatment No Information Insurance Providers Payer Name Payer Address Payer Phone Subscriber Number Group Number Insured Name Patient Relationship to Insured Coverage Start Date Coverage End Date [employer] [address] [address] [place] [phone] [id number] Maranda Garcia Self - patient is the [...]
[2024-10-08 06:08] LABS: Hematocrit 39.4 % (36-47); Hemoglobin 11.10 g/dL (11.27-16.99); Mean Corpuscular HGB Conc 28.2 g/dL (30-55); Mean Corpuscular Hemoglobin 21.1 pg (27-33); Mean Corpuscular Volume 74.9 fl (85-98); Nucleated Red Blood Cells % 0 %; Platelet Count 212 10^3/cmm (157-399); Red Blood Count 5.26 10^6/uL (3.85-5.65); White Blood Count 6.54 10^3/uL (3.29-11.43)
--- NOTE | 2024-10-08 06:15 | ED_ITS ---
HPI - Weakness 2 General: Chief complaint: Weakness Stated complaint: BP 163/112 N/V Weak shaking BS 195 Time Seen by Provider: 10/08/24 06:00 History of Present Illness: 74-year-old female presents to the [facility] complaining of what is a nausea and vomiting and generalized weakness. Patient reports blood pressure has been elevated at home. She is normotensive on arrival here she has not had any fever. No worsening orthopnea. Patient is chronically on 2 L by nasal cannula. Patient is also complaining difficulty swallowing dry mouth this has been a longstanding problem for several years. Associated symptoms: Reports nausea and vomiting; Denies chest pain, chills, melena, dysuria or fever(s) Related Data Home Medications ?Medication ?Instructions ?Recorded ?Confirmed aspirin 81 mg tablet,delayed 81 mg PO DAILY 10/10/19 0 10/05/24 release atorvastatin 40 mg tablet 40 mg PO DAILY 01/07/2409/20 montelukast 10 mg tablet 10 mg PO DAILY 01/07/2409/20 pantoprazole 40 mg tablet,delayed 40 mg PO DAILY 01/0610/05/24 release ipratropium 0.5 mg-albuterol 3 mg 3 ml inhalation Q6H PRN 02/23/24 10/05/24 (2.5 mg base)/3 mL nebulization soln metformin 1,000 mg tablet 1,000 mg PO BID 02/23/24 Previous Rx's ?Medication ?Instructions ?Recorded tiotropium bromide 18 mcg capsule 1 cap inhalation YADY LY #60 09/16/22 with inhalation device (Spiriva inhalations with HandiHaler) albuterol sulfate 90 mcg/actuation See Rx Instructions .Route 11/16/23 aerosol inhaler .COMPLEX #9 grams ondansetron HCl 4 mg tablet 4 mg PO Q6H PRN nausea and 10/08/24 vomiting #20 tabs Allergies Allergy/AdvReac Type Severity Reaction Status Date / Time amoxicillin Allergy Mild ALGY-Rash Verified 10/05/24 08:12 erythromycin base Allergy Mild ALGY-Rash Verified 10/05/24 08:12 cephalexin (From Keflex) Allergy ALGY-Rash Verified 10/05/24 08:12 guaifenesin (From Mucinex) Allergy ALGY-Hives Verified 10/05/24 08:12 lisinopril Allergy Unknown Verified 10/05/24 08:12 naproxen Allergy unknown Verified 10/05/24 08:12 propoxyphene (From Darvon) Allergy Unknown Verified 10/05/24 08:12 rosuvastatin (From Crestor) Allergy unknown Verified 10/05/24 08:12 Review of Systems 2 Const: Denies: fever(s) or chills Card: Denies: chest pain Resp: Denies: dyspnea GI: Reports: nausea and vomiting; Denies: abdominal pain, hematemesis, coffee ground emesis, hematochezia or melena : Denies: dysuria, urinary frequency or urinary urgency Musc: Denies: neck pain or back pain Skin/Breast: Denies: rash PFSH ED 2 PFSH: Medical History CHF (congestive heart failure) Diabetes 1.5, managed as type 2 Surgical History History of tonsillectomy Hx of colonoscopy Dr. Bean at [facility] History of esophagogastroduodenoscopy (EGD) Dr. Bean at [facility] Family History Father Diabetes Mother Diabetes Congestive heart failure (CHF) Other Cancer Dementia Social History Smoking and tobacco/nicotine status: current every day tobacco/nicotine user Alcohol intake: never Substance/Drug Use: never Adopted: No Marital status: / Number of children: 2 service: No Current gender identity: Female Physical Exam 2 Const: GENERAL APPEARANCE: cooperative ORIENTATION/CONSCIOUSNESS: Yes awake, Yes oriented to person, Yes oriented to place and Yes oriented to time HENMT: COMMON NORMALS: normocephalic, atraumatic and hearing grossly normal bilaterally HEAD & SCALP: normocephalic and atraumatic Resp: COMMON NORMALS: normal respiratory effort, No retractions, No use of accessory muscles and clear to auscultation bilaterally AUSCULTATION: clear to auscultation bilaterally Cardio: COMMON NORMALS: regular rate, regular rhythm and No murmurs present (Cardio) RATE: regular rate RHYTHM: regular rhythm GI: COMMON NORMALS: Soft to palpation and No hepatosplenomegaly present A USCULTATION: Yes normoactive bowel sounds PALPATION: Yes Soft to palpation, No Tenderness to palpation present (GI), No Guarding due to palpation present (GI) and Yes No hepatosplenomegaly present Extremity: COMMON NORMALS: normal to inspection, capillary refill normal, no clubbing, cyanosis or edema, no calf tenderness and no pedal edema Neuro: SENSORIUM/ORIENTATION: Yes oriented to person, Yes oriented to place and Yes oriented to time Skin: COMMON NORMALS: no rashes or lesions noted GENERAL SKIN EXAM: no rashes or lesions noted Course 2 Vital Signs: Vital signs: Vital Signs Temperature 98 F 10/08/24 04:00 Pulse Rate 56 L 10/08/24 08:33 Respiratory Rate 18 10/08/24 04:00 Blood Pressure 148/87 10/08/24 08:33 Pulse Oximetry 97 10/08/24 08:33 Oxygen Delivery Me thod Nasal Cannula 10/08/24 04:00 Oxygen Flow Rate 2 10/08/24 04:00 MDM - Weakness Medical Decision Making Labs and imaging reviewed no acute findings. Patient has some mild chronic microcytic anemia that is unchanged. No leukocytosis. Electrolytes and LFTs normal. Reviewed findings with her suspect she has mild gastroenteritis given ondansetron use as needed clear liquid diet for 24 to 48 hours advance as tolerated follow-up with primary care Medical Records I reviewed the patient's medical records. Lab Data I reviewed the patient's lab results. 10/08/24 06:03 10/08/24 06:03 Radiology Impressions Chest X-Ray 10/08/24 06:42 IMPRESSION: As above. Laboratory Results WBC 6.54 10^3/uL (3.29-11.43) 10/08/24 06:03 RBC 5.26 10^6/uL (3.85-5.65) 10/08/24 06:03 Hgb 11.10 g/dL (11.27-16.99) L 10/08/24 06:03 Hct 39.4 % (36-47) 10/08/24 06:03 MCV 74.9 fl (85-98) L 10/08/24 06:03 MCH 21.1 pg (27-33) L 10/08/24 06:03 MCHC 28.2 g/dL (30-55) L 10/08/24 06:03 RDW 15.8 % (12.1-15.1) H 10/08/24 06:03 Plt Count 212 10^3/cmm (157-399) 10/08/24 06:03 MPV 10.9 fL (7.4-10.4) H 10/08/24 06:03 Neut % (Auto) 61.9 % 10/08/24 06:03 Lymph % (Auto) 27.5 % 10/08/24 06:03 Bertie % (Auto) 7.8 % 10/08/24 06:03 Eos % (Auto) 2.1 % 10/08/24 06:03 Baso % (Auto) 0.5 % 10/08/24 06:03 Neut # (Auto) 4.05 10^3/uL (1.8-7.7) 10/08/24 06:03 Lymph # (Auto) 1.8 10^3/uL (0.8-4.8) 10/08/24 06:03 Bertie # (Auto) 0.5 10^3/uL (0.2-0.9) 10/08/24 06:03 Eos # (Auto) 0.1 10^3/uL (0.0-0.8) 10/08/24 06:03 Baso # (Auto) 0.0 10^3/uL (0.0-0.1) 10/08/24 06:03 Nucleated RBC % (auto) 0 % 10/08/24 06:03 Nucleated RBCs # 0.0 /100WBC 10/08/24 06:03 Sodium 144 mmol/L (136-145) 10/08/24 06:03 Potassium 3.7 mmol/L (3.5-5.1) 10/08/24 06:03 Chloride 103 mmol/L (98-107) 10/08/24 06:03 Carbon Dioxide 29 mmol/L (22-29) 10/08/24 06:03 Anion Gap 15.7 (5-19) 10/08/24 06:03 BUN 4 mg/dL (8-23) L 10/08/24 06:03 Creatinine 0.7 mg/dL (0.5-0.9) 10/08/24 06:03 GFR Calculation Not Reportable 10/08/24 06:03 Glucose 158 mg/dL (65-115) H 10/08/24 06:03 Calculated Osmolality 298 mOsm/kg (285-295) H 10/08/24 06:03 Calcium 9.3 mg/dL (8.5-10.5) 10/08/24 06:03 Total Bilirubin 0.4 mg/dL (0.15-1.2) 10/08/24 06:03 AST 16 U/L (0-32) 10/08/24 06:03 ALT 16 U/L (0-33) 10/08/24 06:03 Alkaline Phosphatase 112 U/L (35-105) H 10/08/24 06:03 Total Protein 6.8 g/dL (6.6-8.7) 10/08/24 06:03 Albumin 4.0 g/dL (3.5-5.2) 10/08/24 06:03 Globulin 2.8 g/dL (1.3-4.6) 10/08/24 06:03 Urine Color Yellow (Yellow) 10/08/24 04:06 Urine Appearance Clear (CLEAR) 10/08/24 04:06 Urine pH 7.0 (5-7) 10/08/24 04:06 Ur Specific [place] 1.004 (1.005-1.030) L 10/08/24 04:06 Urine Protein Negative (Negative) 10/08/24 04:06 Urine Glucose (UA) Negative (Normal) 10/08/24 04:06 Urine Ketones Negative (Negative) 10/08/24 04:06 Urine Blood Negative (Negative) 10/08/24 04:06 Urine Nitrate Negative (Negative) 10/08/24 04:06 Urine Bilirubin Negative (Negative) 10/08/24 04:06 Urine Urobilinogen 0.2 mg/dL (Negative) 10/08/24 04:06 Ur Leukocyte Esterase Negative (Negative) 10/08/24 04:06 Urine RBC 0-2 /hpf (0-2) 10/08/24 04:06 Urine WBC 0-5 /hpf (0-5) 10/08/24 04:06 Ur Squamous Epith Cells 0-5 /hpf (0-5) 10/08/24 04:06 Amorphous Sediment Not Reportable 10/08/24 04:06 Urine Bacteria None seen /hpf (NONE) 10/08/24 04:06 Hyaline Casts 0-4 /lpf H 10/08/24 04:06 All radiology interpretation(s) finalized by discharge Discharge Plan Discharge Patient Disposition: Home Clinical Impression: Gastroenteritis, Diabetes 1.5, managed as type 2 Condition: Stable Prescriptions: New ondansetron HCl 4 mg tablet 4 mg PO Q6H PRN (Reason: nausea and vomiting) Qty: 20 0RF No Action aspirin 81 mg tablet,delayed release (DR/EC) 81 mg PO DAILY Spiriva with HandiHaler 18 mcg capsule, w/inhalation device 1 cap inhalation DAILY Qty: 60 5RF Rx Instructions: puncture 1 cap using device; one dose = 2 inhalations ipratropium-albuterol 0.5 mg-3 mg(2.5 mg base)/3 mL solution for nebulization 3 ml inhalation Q6H PRN albuterol sulfate 90 mcg/actuation HFA aerosol inhaler See Rx Instructions .ROUTE .COMPLEX Qty: 9 0RF Dose Instruction: INHALE 2 PUFFS BY MOUTH EVERY 6 HOURS NEEDED FOR SHORTNESS OF BREATH FOR WHEEZING Rx Instructions: INHALE 2 PUFFS BY MOUTH EVERY 6 HOURS NEEDED FOR SHORTNESS OF BREATH FOR WHEEZING atorvastatin 40 mg tablet 40 mg PO DAILY pantoprazole 40 mg tablet,delayed release (DR/EC) 40 mg PO DAILY montelukast 10 mg tablet 10 mg PO DAILY metformin 1,000 mg tablet 1,000 mg PO BID Rx Instructions: 1/2 tab am 1 tab pm Discharge Orders: Discharge ED (Routine); Ordered 10/08/24 Ordered By: Attila Cordon Referrals: Alisson Huerta DO [Primary Care Provider, [employer] SAL[employer] LEADER] Discharge Diet: Clear Liquid Discharge Activity: Increase activity as tolerated Patient Instructions: Opioid Safety, Pain Management, Patient Portal & [place] Instructions Activity Restrictions/Additional Instructions: Thank you for choosing [facility] for your healthcare needs today. It is very important that you follow up as instructed or that you return to the Emergency Department should you have concerns or if your condition changes or worsens in any way. You were seen in the emergency room with complaints of nausea vomiting. Your laboratory test were normal. There is no sign of a bladder infection your white count was normal hemoglobin was normal electrolytes and liver functions did not show any clinically significant abnormality. Recommend clear liquid diet for 24 to 48 hours and advance as tolerated. You can use ondansetron that was given to you today as needed. Follow-up with your primary care doctor. Print Language: Macedonian Coding Level of Care Code ED Motion Picture Operator for Clayton Rojas
[2024-10-08 06:29] LABS: Alanine Aminotransferase 16 U/L (0-33); Albumin Level 4.0 g/dL (3.5-5.2); Alkaline Phosphatase 112 U/L (35-105); Anion Gap 15.7 (5-19); Aspartate Amino Transferase 16 U/L (0-32); Blood Urea Nitrogen 4 mg/dL (8-23); Calcium 9.3 mg/dL (8.5-10.5); Carbon Dioxide 29 mmol/L (22-29); Chloride 103 mmol/L (98-107); Creatinine Clr Calc Pharmacy 63.1251; Globulin 2.8 g/dL (1.3-4.6); Glucose 158 mg/dL (65-115); Osmolality Calculated 298 mOsm/kg (285-295); Potassium 3.7 mmol/L (3.5-5.1); Sodium 144 mmol/L (136-145); Total Protein 6.8 g/dL (6.6-8.7)
[2024-10-08] MEDS: ondansetron 2 mg/ML SDV 2 mL 4 MG IVP (06:30)
--- NOTE | 2024-10-08 06:42 | XRR_ITS ---
PROCEDURE INFORMATION: Exam: XR Chest Exam date and time: 10/08/2024 6:43 AM Age: 74 years old Clinical indication: Other: General weakness/hypertension; Prior surgery; Surgery date: 6+ months; Surgery type: Mastectomy; C/O general weakness and hypertension. TECHNIQUE: Imaging protocol: Radiologic exam of the chest. Views: 1 view. COMPARISON: CR (CHEST, ) 09/25/2024 8:40 AM FINDINGS: Lungs: Bibasilar atelectasis. No lobar consolidation. Pleural spaces: Unremarkable. No pleural effusion. No pneumothorax. Heart/Mediastinum: Unremarkable. No cardiomegaly. Bones/joints: Unremarkable. XR/XR chest 1V portable [id number] IMPRESSION: As above.
--- NOTE | 2024-10-08 07:32 | ECG_ITS ---
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 Measurements Intervals Theodore Rate: 63 P: 59 MD: 146 QRS: 40 QRSD: 92 T: 34 QT: 382 QTc: 393 Interpretive Statements SINUS RHYTHM NONSPECIFIC ST & T-WAVE ABNORMALITY Compared to ECG 09/25/2024 09:05:08 Sinus bradycardia no longer present T-wave abnormality still present Electronically Signed On 10-08-2024 14:05:10 CDT by Luis Angel Head M.D. [email or web address]
[2024-10-08 08:26] LABS: Glucose Urine UA Negative (Normal); Nitrate Urine Negative (Negative); Specific Gravity, Urine 1.004 (1.005-1.030)
[2024-10-08 08:31] LABS: Add Urine Microscopic? YES
[2024-10-08 08:33] VITALS: BP 148/87; PULSE 56; O2SAT 97
== END 2024-10-08 08:33 | disposition home or self-care (01) ==
PROVIDERS: Student in an Organized Health Care Education/Training Program; Emergency Provider Family Medicine; PCP Family Medicine
DX: K52.9 Noninfective gastroenteritis and colitis, unspecified (principal); E13.9 Other specified diabetes mellitus without complications; I50.9 Heart failure, unspecified; Z79.82 Long term (current) use of aspirin; Z79.899 Other long term (current) drug therapy; Z79.84 Long term (current) use of oral hypoglycemic drugs; Z88.0 Allergy status to penicillin; Z88.8 Allergy status to other drugs, medicaments and biological substances
CPT/HCPCS: 36415; 71045; 80053; 81001; 85025; 93005; 96374; 99285; J2405; J7030

== ENCOUNTER 2024-11-23 08:27 | Day surgery (SDC) | payer MEDICARE, MEDICAID, SELFPAY ==
[2024-11-23 08:45] VITALS: BMI 29.3
[2024-11-23 08:48] VITALS: BP 148/91; PULSE 78; RESP 16; TEMP 36.6; O2SAT 96
--- NOTE | 2024-11-23 09:05 | ANES.PREANE2 ---
Pre-Anesthetic Assessment Height/Weight: Height 1.63 m Weight 77.564 kg Temp Pulse Resp BP Pulse Ox 97.8 F 78 16 148/91 96 11/23/24 08:48 11/23/24 08:48 11/23/24 08:48 11/23/24 08:48 11/23/24 08:48 Operation Date: 11/23/24 11:40 Proposed Procedures p EGD EGD with Biopsy 94617 R13.10(Not Applicable) - Jesus Gordon MD Familial anesthetic complications: None Was Beta Nidia taken within 24 hours: N/A Was Clonidine taken within 24 hours: N/A Last intake: Intake Last Liquid Date 11/23/24 Last Liquid Time 07:55 Last Solid Date 11/22/24 Last Solid Time 21:00 Social Tobacco and No alcohol Exam alert, oriented x 3, clear to auscultation bilaterally and regular rate & rhythm Airway Mallampati: Class II Dentition: false Pulmonary Asthma and Chronic Obstructive Pulmonary Disease CV/HEM Congestive Heart Failure and Hypertension aortic stensosis CONCLUSIONS LV systolic function is normal with EF of 60-65%. Grade 1 diastolic dysfunction. Mild mitral regurgitation. Moderate aortic stenosis Compared to prior echocardiogram from 2023, no significant changes are seen GI Gastroesophageal Reflux Disease Metabolic Diabetes Mellitus Anesthetic Plan ASA status: 4 Anesthesia: MAC Risk of > 500 ml blood loss (7ml/kg in children): No Medications/Allergies Home Medications ?Medication ?Instructions ?Recorded ?Confirmed ?Last Taken ?Type aspirin 81 mg tablet,delayed 81 mg PO DAILY 10/10/19 11/18/24 11/21/24 20:00 History release atorvastatin 40 mg tablet 40 mg PO DAILY 01/07/24 11/18/24 11/22/24 06:00 History montelukast 10 mg tablet 10 mg PO DAILY 01/07/24 11/18/24 11/22/24 06:00 History pantoprazole 40 mg tablet,delayed 40 mg PO DAILY 01/07/24 11/18/24 11/22/24 19:00 History release ipratropium 0.5 mg-albuterol 3 mg 3 ml inhalation Q6H PRN Shortness 02/23/24 11/18/24 2 Weeks Ago History (2.5 mg base)/3 mL nebulization Of Breath Or Wheezing ~09/26/24 soln metformin 1,000 mg tablet 1,000 mg PO BID 02/23/24 11/18/24 11/22/24 06:00 History ondansetron HCl 4 mg tablet 4 mg PO Q6H PRN nausea and 10/08/24 11/18/24 Unknown Rx vomiting #20 tabs albuterol sulfate 90 mcg/actuation 2 puff inhalation Q6H PRN 11/18/24 11/18/24 Unknown History aerosol inhaler Shortness Of Breath Or Wheezing losartan 25 mg tablet 12.5 mg PO DAILY 11/18/24 11/18/24 11/22/24 06:00 History Allergies Allergy/AdvReac Type Severity Reaction Status Date / Time amoxicillin Allergy Mild ALGY-Rash Verified 11/23/24 08:40 erythromycin base Allergy Mild ALGY-Rash Verified 11/23/24 08:40 cephalexin (From Keflex) Allergy ALGY-Rash Verified 11/23/24 08:40 guaifenesin (From Mucinex) Allergy ALGY-Hives Verified 11/23/24 08:40 lisinopril Allergy Unknown Verified 11/23/24 08:40 naproxen Allergy unknown Verified 11/23/24 08:40 propoxyphene (From Darvon) Allergy Unknown Verified 11/23/24 08:40 rosuvastatin (From Crestor) Allergy unknown Verified 11/23/24 08:40 Current Medications Generic Name Dose Route Start Last Admin Trade Name Freq PRN Reason Stop Dose Admin Sodium Chloride 1,000 mls @ 15 mls/hr 11/23/24 08:33 11/23/24 08:50 Sodium Chloride 0.9% IV 11/24/24 08:32 15 mls/hr .Q24H PRN Administration COLONOSCOPY FLUIDS [facility] Anesthesia Medical History (Updated 10/16/24 @ 00:00 by SAHIL Marks) CHF (congestive heart failure) Diabetes 1.5, managed as type 2 Surgical History History of tonsillectomy Hx of colonoscopy Dr. Bean at [facility] History of esophagogastroduodenoscopy (EGD) Dr. Bean at [facility] Family History Father Diabetes Mother Diabetes Congestive heart failure (CHF) Other Cancer Dementia Social History Smoking and tobacco/nicotine status: current every day tobacco/nicotine user Alcohol intake: never Substance/Drug Use: never Adopted: No Marital status: / Number of children: 2 service: No Current gender identity: Female Data Anesthesia Cardiac Studies: Echocardiogram 07/28/24
--- NOTE | 2024-11-23 09:45 | W.PM.OPSFHP ---
Same Day Surgery H&P Indication for Procedure/HPI DATE OF PROCEDURE: November 23, 2024 CHIEF COMPLAINT/INDICATIONFOR SURGICAL PROCEDURE: reflux aND DYSPHAGIA PREOP DIAGNOSIS: reflux and dysphagia PLANNED PROCEDURE: Operation Date: 11/23/24 11:40 Proposed Procedures p EGD EGD with Biopsy 27817 R13.10(Not Applicable) - Jesus Gordon MD Medications/Allergies* Home Medications ?Medication ?Instructions ?Recorded ?Confirmed ?Type aspirin 81 mg tablet,delayed 81 mg PO DAILY 10/10/19 11/18/24 History release atorvastatin 40 mg tablet 40 mg PO DAILY 01/07/24 11/18/24 History montelukast 10 mg tablet 10 mg PO DAILY 01/07/24 11/18/24 History pantoprazole 40 mg tablet,delayed 40 mg PO DAILY 01/07/24 11/18/24 History release ipratropium 0.5 mg-albuterol 3 mg 3 ml inhalation Q6H PRN Shortness 02/23/24 11/18/24 History (2.5 mg base)/3 mL nebulization Of Breath Or Wheezing soln metformin 1,000 mg tablet 1,000 mg PO BID 02/23/24 11/18/24 History albuterol sulfate 90 mcg/actuation 2 puff inhalation Q6H PRN 11/18/24 11/18/24 History aerosol inhaler Shortness Of Breath Or Wheezing losartan 25 mg tablet 12.5 mg PO DAILY 11/18/24 11/18/24 History Allergies/Adverse Reactions Allergy/AdvReac Type Severity Reaction Status Date / Time amoxicillin Allergy Mild ALGY-Rash Verified 11/23/24 08:40 erythromycin base Allergy Mild ALGY-Rash Verified 11/23/24 08:40 cephalexin (From Keflex) Allergy ALGY-Rash Verified 11/23/24 08:40 guaifenesin (From Mucinex) Allergy ALGY-Hives Verified 11/23/24 08:40 lisinopril Allergy Unknown Verified 11/23/24 08:40 naproxen Allergy unknown Verified 11/23/24 08:40 propoxyphene (From Darvon) Allergy Unknown Verified 11/23/24 08:40 rosuvastatin (From Crestor) Allergy unknown Verified 11/23/24 08:40 Current Medications: Generic Name Dose Route Start Last Admin Trade Name Freq PRN Reason Stop Dose Admin Sodium Chloride 1,000 mls @ 15 mls/hr 11/23/24 08:33 11/23/24 08:50 Sodium Chloride 0.9% IV 11/24/24 08:32 15 mls/hr .Q24H PRN Administration COLONOSCOPY FLUIDS Pertinent History/Comorbid Conditions* Medical History (Updated 10/16/24 @ 00:00 by SAHIL Marks) CHF (congestive heart failure) Diabetes 1.5, managed as type 2 Surgical History (Updated 01/07/24 @ 14:44 by Dani Orellana MD) History of tonsillectomy Hx of colonoscopy Dr. Bean at [facility] History of esophagogastroduodenoscopy (EGD) Dr. Bean at [facility] Family History (Updated 10/10/19 @ 11:32 by RAMOS London) Diabetes Father Mother Congestive heart failure (CHF) Mother Dementia Cancer Social History Smoking and tobacco/nicotine status: current every day tobacco/nicotine user Alcohol intake: never Substance/Drug Use: never Adopted: No Marital status: / Number of children: 2 service: No Current gender identity: Female Pertinent Exam Findings alert, oriented x 3, clear to auscultation bilaterally and regular rate & rhythm Recommendations Surgery/Procedure today Coding Level of Care Code Acute Code for Chg Fwd
[2024-11-23 10:56] VITALS: BP 145/90; PULSE 73; RESP 16; TEMP 36.6; O2SAT 96
[2024-11-23 10:58] VITALS: BP 102/64; PULSE 63; RESP 18; O2SAT 96
--- NOTE | 2024-11-23 11:40 | ANE.PACU2 ---
Inpatient post-anesthesia follow up: Airway intact: Yes Vital signs: Temperature 97.9 F Pulse Rate 63 Respiratory Rate 18 Blood Pressure 102/64 Pulse Oximetry 96 Oxygen Delivery Me thod Nasal Cannula Oxygen Flow Rate 3 Fraction of Inspir ed Oxygen Hydration adequate: Yes Nausea and vomiting: No Pain level: 1 Mental status: Baseline
== END 2024-11-23 11:40 | disposition home or self-care (01) ==
PROVIDERS: PCP Family Medicine; Visit Provider Surgery
PROC: 0DJ08ZZ Inspection of Upper Intestinal Tract, Via Natural or Artificial Opening Endoscopic (ICD-10-PCS; principal; 2024-11-23 11:40)
DX: R13.10 Dysphagia, unspecified (principal); K21.9 Gastro-esophageal reflux disease without esophagitis; K29.50 Unspecified chronic gastritis without bleeding; Z79.82 Long term (current) use of aspirin; Z79.84 Long term (current) use of oral hypoglycemic drugs; I50.9 Heart failure, unspecified; E13.8 Other specified diabetes mellitus with unspecified complications; F17.200 Nicotine dependence, unspecified, uncomplicated
CPT/HCPCS: 36416; 43239; 82962; 88305; 88342; J2704; J7030

== ENCOUNTER 2024-12-02 23:02 | Emergency (ER) | payer MEDICARE, MEDICAID, SELFPAY ==
[2024-12-02 23:06] VITALS: BP 138/77; PULSE 67; RESP 16; TEMP 36.8; O2SAT 95; BMI 27.1
--- OUTSIDE RECORDS SUMMARY | 2024-12-02 23:09 | XMS_ITS | Patient Health Record ---
Author Organization 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 Name Role Phone Herb Moralesa Primary Care [...] Problem Status W/U Status Risk Notes Problem Lichen planus (8435382) Lichen planus (697.0) 2016 Problem resolved confirmed [id number]- Problem Fever (519681324) Fever, unspeci fied (780.60) 2017 Problem resolved confirmed [id number]- Problem Shortness of breath (894307094) Shortness of breath (786.05) 2016 Problem resolved confirmed [id number]- Problem Age-related osteoporosis (341644384) Age-related osteoporosis without current pathological fracture (M81.0) Active confirmed Problem Essential hypertension (73614303) Essential hypertension (I10) Active confirmed Problem Type II diabetes mellitus without complication (076616333) Type 2 diabetes mellitus without complication, without long-term current use of insulin (E11.9) Active confirmed Problem COPD - Chronic obstructive pulmonary disease (51197242) Chronic obstructive pulmonary disease, unspecified COPD type (J44.9) Active confirmed Problem Vertigo (431600133) Vertigo (780.4) 07/02 Problem resolved confirmed [id number]- Problem Dizziness (230979387) Dizziness (780.4) 0 2017 Problem resolved confirmed [id number]- Problem Hypercholesterolemia (33940468) Hypercholesterolemia (E78.00) Active confirmed Problem Low back pain (277168508) Low back pain (724.2) 2016 Problem resolved confirmed [id number]- Problem Vitamin B12 deficiency (non anemic) (19507260) B12 deficiency (266.2) 2017 Problem resolved confirmed [id number]- Problem Seasonal allergy (159947982) Seasonal allergies (J30.2) Active confirmed Problem Benign essential hypertension (3537891) Benign essential hypertension (I10) 2018 Active confirmed [id number]- Problem Laboratory test result abnormal (774134957) Abnormal laboratory test (R89.9) Active confirmed Problem Fatty liver (299588895) Fatty liver (K76.0) Active confirmed Problem Burning sensation of vagina (finding) (595211507) Vaginal burning (N94.9) Active confirmed Problem Lumbosacral spondylosis without myelopathy (94471615) 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 Problem resolved confirmed [id number]- Problem Secondary polycythemia (60849615) Secondary polycythemia (289.0) 2017 Problem resolved confirmed [id number]- Problem Shortness of breath (818254246) Shortness of breath (786.09) 2017 Problem resolved confirmed [id number]- Problem Mitral and aortic stenosis (168667093) Aortic stenosis (396.0) 2016 Problem resolved confirmed [id number]- Problem Disorder of hematopoietic system (32666156) Other abnormal findings on blood examination (790.99) 2017 Problem resolved confirmed [id number]- Problem Congestive heart failure (74910374) Congestive heart failure (428.0) 2016 Problem resolved confirmed [id number]- Problem Insomnia (209167616) Insomnia (307.41) 2016 Problem resolved confirmed [id number]- Problem Pain in limb (56391224) Leg pain (729.5) 2018 Problem resolved confirmed [id number]- Problem Tobacco user (483317752) Tobacco abuse affecting health (305.1) 2017 Problem resolved confirmed [id number]- Problem Electrocardiogram abnormal (836021184) Abnormal EKG (794.31) 2017 Problem resolved confirmed [id number]- Problem Anxiety (24867457) Anxiety (300.02) 11/10 Active confirmed [id number]- Problem Acquired renal cyst (930654455) Acquired renal cyst (593.2) 2018 Problem resolved confirmed [id number]- Problem Emphysema (27527484) Emphysema, other (492.8) 2018 Problem resolved confirmed [id number]- Problem Impacted cerumen (98139268) External cerumen impaction (380.4) 2018 Problem resolved confirmed [id number]- Problem Diabetes mellitus type 2 (disorder) (73643582) Type 2 diabetes (250.00) 2016 Active confirmed [id number]- Problem Chronic uterine inflammatory disease (333236993) Chronic inflammatory disease of uterus (615.1) 2017 Problem resolved confirmed [id number]- Problem Screening mammograph y (74849819) Screening mammogram - other (V76.12) 2017 Problem resolved confirmed [id number]- Problem Gastroesophageal reflux disease with esophagitis (disorder) (118619941) Gastroesophageal reflux disease with esophagitis, unspecified whether hemorrhage (K21.00) Active confirmed Plan Of Treatment No Information Insurance Providers Payer Name Payer Address Payer Phone Subscriber Number Group Number Insured Name Patient Relationship to Insured Coverage Start Date Coverage End Date [employer] [address] [address] [place] [phone] [id number] Maranda Garcia Self - patient is the [...]
== END 2024-12-03 02:18 | disposition left against medical advice (07) ==
PROVIDERS: Emergency Provider Emergency Medicine; PCP Family Medicine
DX: Z53.21 Procedure and treatment not carried out due to patient leaving prior to being seen by health care provider (principal)

== ENCOUNTER → 2024-12-06 08:48 | Outpatient (BNVA) | payer MEDICARE, MEDICAID, SELFPAY | PROVIDERS: PCP Family Medicine; Visit Provider Surgery | DX: Z09 Encounter for follow-up examination after completed treatment for conditions other than malignant neoplasm (principal) | CPT/HCPCS: 99213 ==

== ENCOUNTER 2024-12-26 11:46 | Outpatient (CLI) | payer MEDICARE, MEDICAID, SELFPAY ==
--- NOTE | 2024-12-26 11:55 | XR_ITS ---
WS: [id number] Left shoulder, 3 views, 12/26/2024 Clinical Data: L SHOULDER PAIN/FALL Comparison: None. Findings: No fractures or dislocations are seen. The AC joint is normal. The adjacent left clavicle, left scapula and ribs are normal. The soft tissues are unremarkable. XR/XR shoulder LT min 2V* [id number] Impression: Negative left shoulder.
--- NOTE | 2024-12-26 11:55 | XR_ITS ---
WS: [id number] Thoracic spine, 3 views, 12/26/2024 Clinical Data: UPPER BACK PAIN/FALL Comparison: None. Findings: No compression fractures are seen. The disc heights are normal. Moderate osteoarthritis of all of the thoracic vertebral bodies is seen. The paravertebral regions are normal. XR/XR thoracic spine 2V [id number] Impression: Moderate osteoarthritis of the thoracic vertebral bodies.
--- NOTE | 2024-12-26 11:55 | XR_ITS ---
WS: [id number] Lateral views of cervical spine in the flexion, extension and neutral positions. 12/26/2024 Clinical Data: ACUTE NECK PAIN/FALL Comparison: CT neck, 09/23/2024 Findings: No compression fractures are seen. There is degenerative disc narrowing at C4- C5, C5-C6 and C6-C7 with anterior and posterior osteophytes. The lateral view of the odontoid is normal. There is no instability on flexion or extension. XR/XR cervical spine fl/ex [id number] Impression: 1. Degenerative disc narrowing at C4-C5 5, C5-C6 and C6/C7. 2. Osteoarthritis C4-C7. 3. No instability on flexion or extension.
== END 2024-12-26 11:47 | disposition home or self-care (01) ==
LOC: RAD 11:51
PROVIDERS: PCP Family Medicine; Visit Provider Nurse Practitioner Family
DX: M50.321 Other cervical disc degeneration at C4-C5 level (principal); M47.894 Other spondylosis, thoracic region; M50.323 Other cervical disc degeneration at C6-C7 level; M47.892 Other spondylosis, cervical region; M50.322 Other cervical disc degeneration at C5-C6 level
CPT/HCPCS: 72040; 72070; 73030

== ENCOUNTER 2024-12-29 16:01 | Outpatient (CLI) | payer MEDICARE, MEDICAID, SELFPAY ==
--- NOTE | 2024-12-29 16:08 | CT_ITS ---
WS: [id number] CT HEAD TECHNIQUE: Noncontrast CT of the head obtained from the skullbase to the vertex. CLINICAL INFORMATION: HEADACHE, DIZZINESS, UNSPECIFIED FALL COMPARISON: 2018 DLP: 1145.[address] scans at [facility] use at least one of these dose optimization techniques: automated exposure control; mA and/or kV adjustment per patient size (includes targeted exams where dose is matched to clinical indication); or iterative reconstruction. FINDINGS: No evidence of intracranial hemorrhage or mass effect. Ventricular system and basal cisterns are patent. Moderate small vessel changes with moderate parenchymal volume loss. No extra-axial fluid collections. No evidence of mass or mass effect. Vascular calcification. Paranasal sinuses and mastoid air cells are well aerated. .Normal visualized soft tissues. CT/CT head wo con* [id number] IMPRESSION: 1. No evidence of intracranial hemorrhage or mass effect. 2. Moderate small vessel changes with moderate parenchymal volume loss progres sed since 2018. 3. Vascular calcification. 4. No acute intracranial findings.
== END 2024-12-29 16:02 | disposition home or self-care (01) ==
LOC: RAD 16:01
PROVIDERS: PCP Family Medicine; Visit Provider Nurse Practitioner Family
DX: R42 Dizziness and giddiness (principal); R51.9 Headache, unspecified; W19.XXXA Unspecified fall, initial encounter; I67.82 Cerebral ischemia; G31.89 Other specified degenerative diseases of nervous system
CPT/HCPCS: 70450

== ENCOUNTER → 2025-02-07 09:35 | Outpatient (BNVA) | payer MEDICARE, MEDICAID, SELFPAY | PROVIDERS: PCP Family Medicine; Visit Provider Nurse Practitioner Family | DX: L30.9 Dermatitis, unspecified (principal); L85.8 Other specified epidermal thickening; L57.8 Other skin changes due to chronic exposure to nonionizing radiation; L82.1 Other seborrheic keratosis; X32.XXXA Exposure to sunlight, initial encounter; L81.4 Other melanin hyperpigmentation; L82.0 Inflamed seborrheic keratosis; L29.89 Other pruritus; L53.8 Other specified erythematous conditions | CPT/HCPCS: 11102; 17110; 99204 ==